=== PATIENT | male | born 1940 | race Caucasian/White ===

== ENCOUNTER 2020-02-03 09:15 | Emergency (ER) | payer MEDICARE, OTHER ==
[2020-02-03] MEDS ORDERED: Nitroglycerin 0.4 MG Tab.SL SL ONE (09:23)
--- NOTE | 2020-02-03 09:26 | EDM.PDOC ---
ED HPI GENERAL MEDICAL PROBLEM - General Stated Complaint: CHEST DISCOMFORT Time Seen by Provider: 02/03/20 09:15 Source of Information: Reports: Patient, Family History Limitations: Reports: No Limitations - History of Present Illness INITIAL COMMENTS - FREE TEXT/NARRATIVE: 79-year-old male with a remote history of PR 20 years ago who is been doing well, developed some chest pressure radiating in the back of his neck after breakfast about 1-1/2 hours ago. No shortness of breath, nausea or vomiting, diaphoresis. Onset: Sudden Duration: Hour(s): (1-1/2 hours ago) Location: Reports: Chest Associated Symptoms: Reports: Malaise, Other (Somewhat pale but not diaphoretic, also having some posterior neck pain). Denies: Shortness of Breath, Weakness Chest Pain Score (Numeric/FACES): 2 - Related Data Allergies Allergy/AdvReac Type Severity Reaction Status Date / Time dust mites Allergy Cannot Uncoded 02/03/20 09:35 Remember pollen Allergy Cannot Uncoded 02/03/20 09:35 Remember Home Meds: Home Meds Aspirin 325 mg PO DAILY 06/18/13 [History] Multivitamin with Minerals [Multiple Vitamin] 1 tab PO DAILY 06/18/13 [History] Nitroglycerin [Nitrostat] 0.4 mg SL ASDIRECTED PRN 06/18/13 [History] Simvastatin [Zocor] 20 mg PO DAILY 06/18/13 [History] metFORMIN [metFORMIN XR] 500 mg PO BID 06/18/13 [History] ramipriL [Altace] 2.5 mg PO DAILY 06/18/13 [History] Levothyroxine 137 mcg PO DAILY 06/19/13 [History] DULoxetine [Cymbalta] 20 mg PO DAILY 02/03/20 [History] Dulaglutide [Trulicity] 0.75 mg SQ ASDIRECTED 02/03/20 [History] Insulin Degludec [Tresiba] 56 unit SQ DAILY 02/03/20 [History] Metoprolol Succinate 50 mg PO BID 02/03/20 [History] Mirtazapine 15 mg PO BEDTIME 02/03/20 [History] ED ROS GENERAL - Review of Systems Review Of Systems: See Below Constitutional: Reports: Malaise. Denies: Fever, Chills HEENT: Denies: Throat Pain Respiratory: Denies: Shortness of Breath Cardiovascular: Reports: Chest Pain. Denies: Palpitations GI/Abdominal: Reports: Other. Denies: Abdominal Pain, Nausea (History of reflux), Vomiting : Reports: No Symptoms Musculoskeletal: Reports: Neck Pain Skin: Reports: Pallor Neurological: Reports: No Symptoms ED EXAM, GENERAL - Physical Exam Exam: See Below Exam Limited By: No Limitations General Appearance: Alert, No Apparent Distress Head: Atraumatic Neck: Supple, Non-Tender Respiratory/Chest: Lungs Clear Cardiovascular: Regular Rate, Rhythm GI/Abdominal: Soft, Non-Tender Neurological: Alert, Oriented Psychiatric: Normal Affect, Normal Mood Skin Exam: Pallor. No: Cyanosis, Diaphoretic Course - Vital Signs Last Recorded V/S: Last Vital Signs Temp 97.2 F 02/03/20 09:15 Pulse 72 02/03/20 09:15 Resp 16 02/03/20 09:15 BP 163/87 H 02/03/20 09:15 Pulse Ox 96 02/03/20 09:15 - Orders/Labs/Meds Orders: Active Orders 24 hr Category Date Time Status EKG 12 Lead [EK] Routine Ther 02/03/20 09:23 Ordered Labs: Laboratory Tests 02/03/20 02/03/20 Range/Units 09:33 09:33 WBC 5.0 (4.5-11.0) K/uL RBC 5.00 (4.30-5.90) M/uL Hgb 14.5 (12.0-15.0) g/dL Hct 44.3 (40.0-54.0) % MCV 89 (80-98) fL MCH 29 (27-31) pg MCHC 33 (32-36) % Plt Count 239 (150-400) K/uL Neut % (Auto) 61 (36-66) % Lymph % (Auto) 18 L (24-44) % [place] % (Auto) 14 H (2-6) % Eos % (Auto) 5 H (2-4) % Baso % (Auto) 1 (0-1) % Sodium 141 (140-148) mmol/L Potassium 4.4 (3.6-5.2) mmol/L Chloride 104 (100-108) mmol/L Carbon Dioxide 28 (21-32) mmol/L Anion Gap 8.7 (5.0-14.0) mmol/L BUN 16 (7-18) mg/dL Creatinine 0.8 (0.8-1.3) mg/dL Est Cr Clr Drug Dosing 73.65 mL/min Estimated GFR (MDRD) > 60 (>60) Glucose 201 H (74-106) mg/dL Calcium 8.7 (8.5-10.1) mg/dL Total Bilirubin 0.6 (0.2-1.0) mg/dL AST 19 (15-37) U/L ALT 29 (12-78) U/L Alkaline Phosphatase 89 (46-116) U/L Troponin I < 0.017 (0.000-0.056) ng/mL Total Protein 6.4 (6.4-8.2) g/dL Albumin 3.3 L (3.4-5.0) g/dL Globulin 3.1 (2.3-3.5) g/dL Albumin/Globulin Ratio 1.1 L (1.2-2.2) Meds: Medications Discontinued Medications Generic Name Dose Route Start Last Admin Trade Name Gamalielq PRN Reason Stop Dose Admin Heparin Sodium (Porcine) 4,000 units 02/03/20 09:30 02/03/20 09:47 Heparin Sodium IVPUSH 02/03/20 09:31 4,000 units ONETIME ONE Administration Heparin Sodium/Dextrose 25,000 units in 500 mls @ 20 mls/hr 02/03/20 09:30 02/03/20 09:48 Heparin 25,000 Units In D5w 500 Ml IV 1,000 units/hr TITRATE ROSIBEL 20 mls/hr Administration Protocol 1,000 UNITS/HR Nitroglycerin 0.4 mg 02/03/20 09:23 Nitrostat SL 02/03/20 09:24 ONETIME ONE Ticagrelor 180 mg 02/03/20 09:29 02/03/20 09:45 Brilinta PO 02/03/20 09:30 180 mg ONETIME ONE Administration - Re-Assessments/Exams Free Text/Narrative Re-Assessment/Exam: 02/03/20 09:40 EKG was done and showed inferior PR. An IV was started 02/03/20 09:59 Patient was given a full dose oral Brilinta, a 4000 unit heparin bolus and EKG was faxed to cardiology in [place]. Urgent transportation was arranged patient will go directly to [facility]. At discharge pressure was just "1 or 2", troponin was 0. Glucose was 201, otherwise labs were normal are reassuring, CBC was normal. Dr. Armstrong accepted transfer to [facility]. Departure - Departure Time of Disposition: 10:18 Disposition: DC/Tfer to Acute Hospital 02 Clinical Impression: STEMI (ST elevation myocardial infarction) Qualifiers: Involved coronary artery: unspecified coronary artery Qualified Code(s): I21.3 - ST elevation (STEMI) myocardial infarction of unspecified site - Discharge Information Referrals: Norman Lamb MD [Primary Care Provider] - Forms: ED Department Discharge Care Plan Goals: Patient was urgently transferred to [facility] and will be admitted directly to [facility] to evaluate a STEMI. Sepsis Event Note (ED) - Focused Exam Vital Signs: Vital Signs Temp Pulse Resp BP Pulse Ox 02/03/20 09:15 97.2 F 72 16 163/87 H 96 - My Orders Last 24 Hours: My Active Orders 02/03/20 09:23 EKG 12 Lead [EK] Routine - Assessment/Plan Last 24 Hours: My Active Orders 02/03/20 09:23 EKG 12 Lead [EK] Routine
[2020-02-03] MEDS ORDERED: Ticagrelor 90 MG Tab PO ONE (09:29)
[2020-02-03] MEDS ORDERED: Heparin Sodium 5,000 Units/ML Vial IVPUSH ONE (09:30)
[2020-02-03] MEDS ORDERED: Heparin Sodium/D5W 25,000 UNITS/500 ML BAG IV SCH (09:30)
== END 2020-02-03 10:10 ==
LOC: JP.ED 09:15
DX: I21.3 ST elevation (STEMI) myocardial infarction of unspecified site (principal); Z91.09 Other allergy status, other than to drugs and biological substances; Z91.048 Other nonmedicinal substance allergy status; Z79.82 Long term (current) use of aspirin; Z79.899 Other long term (current) drug therapy; Z79.4 Long term (current) use of insulin
CPT/HCPCS: 36415; 80053; 84484; 85025; 93005; 96365; 99285; A9270; J1644

== ENCOUNTER 2020-02-16 15:15 | Emergency (ER) | payer MEDICARE, OTHER ==
[2020-02-16] MEDS ORDERED: Sodium Chloride 0.9% 10 ML Syringe FLUSH PRN (15:50)
--- NOTE | 2020-02-16 16:40 | EDM.PDOC ---
ED HPI GENERAL MEDICAL PROBLEM - General Chief Complaint: General Stated Complaint: PASSING BLOOD Time Seen by Provider: 02/16/20 16:35 Source of Information: Reports: Patient, Family () - History of Present Illness INITIAL COMMENTS - FREE TEXT/NARRATIVE: Eduard is an 79 year old male whom present to ER with for evaluation of rectal bleeding over the last 3 weeks. 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 Eduard was evaluated in [place] ER 3-4 weeks ago and found to have acute myocardial infarction due to vascular lesion. Eduard was transferred to [place] and under went cardiac catheterization with stent placement. Eduard was discharged on Brilinta 90mg BID and ASA 81mg (previously on ASA 325mg). Eduard has known hist ory of hemorrhoids and radiation from previous prostate cancer treatment. 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 Eduard is feeling a bit lightheaded and off since recent hospitalization and concerned regarding amount of blood loss. - Related Data Allergies Allergy/AdvReac Type Severity Reaction Status Date / Time dust mites Allergy Cannot Uncoded 02/16/20 15:53 Remember pollen Allergy Cannot Uncoded 02/16/20 15:53 Remember Home Meds: Home Meds Aspirin 325 mg PO DAILY 06/18/13 [History] Multivitamin with Minerals [Multiple Vitamin] 1 tab PO DAILY 06/18/13 [History] Nitroglycerin [Nitrostat] 0.4 mg SL ASDIRECTED PRN 06/18/13 [History] Simvastatin [Zocor] 20 mg PO DAILY 06/18/13 [History] metFORMIN [metFORMIN XR] 500 mg PO BID 06/18/13 [History] ramipriL [Altace] 2.5 mg PO DAILY 06/18/13 [History] Levothyroxine 137 mcg PO DAILY 06/19/13 [History] DULoxetine [Cymbalta] 20 mg PO DAILY 02/03/20 [History] Dulaglutide [Trulicity] 0.75 mg SQ ASDIRECTED 02/03/20 [History] Insulin Degludec [Tresiba] 56 unit SQ DAILY 02/03/20 [History] Metoprolol Succinate 50 mg PO BID 02/03/20 [History] Mirtazapine 15 mg PO BEDTIME 02/03/20 [History] Hydrocortisone Acetate [Anusol-Hc] 25 mg RC TID 5 Days #12 supp.rect 02/16/20 [Rx] Hydrocortisone [Proctocream-Hc] 30 gm RC TID 10 Days #30 cream..g. 02/16/20 [Rx] Omeprazole 1 tab PO DAILY 02/16/20 [History] Sucralfate 1 gm PO ASDIRECTED PRN 5 Days #120 oral.susp 02/16/20 [Rx] Ticagrelor [Brilinta] 1 tab PO DAILY 02/16/20 [History] Past Medical History HEENT History: Reports: Hard of Hearing Cardiovascular History: Reports: CAD, High Cholesterol, Hypertension, [place] Respiratory History: Reports: None Gastrointestinal History: Reports: GERD Genitourinary History: Reports: Prostate Disorder Musculoskeletal History: Reports: Arthritis, Fracture Neurological History: Reports: None Endocrine/Metabolic History: Reports: Diabetes, Type II Oncologic (Cancer) History: Reports: Prostate, Thyroid - Infectious Disease History Infectious Disease History: Reports: Chicken Pox, Herpes, Measles, Mumps - Past Surgical History HEENT Surgical History: Reports: Tonsillectomy GI Surgical History: Reports: None Male Surgical History: Reports: Prostatectomy Other Male Surgeries/Procedures: 12 years ago Endocrine Surgical History: Reports: Thyroidectomy Musculoskeletal Surgical History: Reports: Shoulder Surgery Social & Family History - Tobacco Use Smoking Status *Q: Never Smoker - Caffeine Use Caffeine Use: Reports: Coffee ED ROS GENERAL - Review of Systems Review Of Systems: Comprehensive ROS is negative, except as noted in HPI. ED EXAM, GENERAL - Physical Exam Exam: See Below Exam Limited By: No Limitations General Appearance: Alert, No Apparent Distress Eye Exam: Bilateral Eye: Normal Inspection Ears: Hearing Grossly Normal Nose: Normal Inspection Throat/Mouth: Normal Inspection, Normal Voice, No Airway Compromise Neck: Normal Inspection, Supple, Non-Tender Respiratory/Chest: No Respiratory Distress, Normal Breath Sounds, Chest Non- Tender Cardiovascular: Normal Peripheral Pulses, Regular Rate, Rhythm GI/Abdominal: Normal Bowel Sounds, Soft, Non-Tender (Male) Exam: Deferred Rectal (Males) Exam: Deferred (offered but declinecd) Extremities: Normal Inspection. No: Pedal Edema Neurological: Alert, CN II-XII Intact, Normal Cognition Psychiatric: Normal Affect, Normal Mood Skin Exam: Warm, Dry Lymphatic: No Adenopathy Course - Vital Signs Last Recorded V/S: Last Vital Signs Temp 36.5 C 02/16/20 16:37 Pulse 85 02/16/20 16:37 Resp 16 02/16/20 16:37 BP 141/84 H 02/16/20 16:37 Pulse Ox 98 02/16/20 16:37 - Orders/Labs/Meds Orders: Active Orders 24 hr Category Date Time Status Peripheral IV Insertion Adult [OM.PC] Urgent Oth 02/16/20 15:50 Ordered Labs: Laboratory Tests 02/16/20 02/16/20 Range/Units 16:02 16:02 WBC 5.8 (4.5-11.0) K/uL RBC 4.51 (4.30-5.90) M/uL Hgb 13.0 (12.0-15.0) g/dL Hct 39.9 L (40.0-54.0) % MCV 89 (80-98) fL MCH 29 (27-31) pg MCHC 33 (32-36) % Plt Count 318 (150-400) K/uL Neut % (Auto) 59 (36-66) % Lymph % (Auto) 20 L (24-44) % [place] % (Auto) 15 H (2-6) % Eos % (Auto) 5 H (2-4) % Baso % (Auto) 1 (0-1) % Sodium 144 (140-148) mmol/L Potassium 4.3 (3.6-5.2) mmol/L Chloride 108 (100-108) mmol/L Carbon Dioxide 26 (21-32) mmol/L Anion Gap 10.1 (5.0-14.0) mmol/L BUN 17 (7-18) mg/dL Creatinine 1.0 (0.8-1.3) mg/dL Est Cr Clr Drug Dosing 58.92 mL/min Estimated GFR (MDRD) > 60 (>60) Glucose 130 H (74-106) mg/dL Calcium 8.5 (8.5-10.1) mg/dL Total Bilirubin 0.4 (0.2-1.0) mg/dL Direct Bilirubin 0.15 (0.0-0.2) mg/dL Indirect Bilirubin 0.25 AST 17 (15-37) U/L ALT 30 (12-78) U/L Alkaline Phosphatase 83 (46-116) U/L Total Protein 6.4 (6.4-8.2) g/dL Albumin 3.2 L (3.4-5.0) g/dL Globulin 3.2 (2.3-3.5) g/dL Albumin/Globulin Ratio 1.0 L (1.2-2.2) Meds: Medications Discontinued Medications Generic Name Dose Route Start Last Admin Trade Name Freq PRN Reason Stop Dose Admin Sodium Chloride 10 ml 02/16/20 15:50 02/16/20 17:08 Saline Flush FLUSH 10 ml ASDIRECTED PRN Administration Keep Vein Open Departure - Departure Time of Disposition: 17:06 Disposition: Home, Self-Care 01 Clinical Impression: Rectal bleed - Discharge Information Prescriptions: Hydrocortisone Acetate [Anusol-Hc] 25 mg RC TID 5 Days #12 supp.rect Hydrocortisone [Proctocream-Hc] 30 gm RC TID 10 Days #30 cream..g. Sucralfate 1 gm PO ASDIRECTED PRN 5 Days #120 oral.susp PRN Reason: GI Instructions: Rectal Bleeding, [id number] Referrals: Norman Lamb MD [Primary Care Provider] - Forms: ED Department Discharge Additional Instructions: 1. Go to General Surgery appointment this coming week as planned. 2. 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 3. 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 4. Oral medication to stop diarrhea may not be beneficial and may cause constipation and harm. 5. Recommendations reviewed to treat localized rectal bleeding with Anusol HC suppositories AND Proctozone(cream) vs Proctofoam vs Sucralfate solution per previous instructions. 6. Call PCP in am to discuss risk benefit of medications and further interventions, possible colonoscopy or [facility]-rectal consult for possible banding if bleeding due to hemorrhoids. Sepsis Event Note (ED) - Focused Exam Vital Signs: Vital Signs Temp Pulse Resp BP Pulse Ox 02/16/20 16:37 36.5 C 85 16 141/84 H 98 02/16/20 16:12 36.5 C 85 16 141/84 H 98 - My Orders Last 24 Hours: My Active Orders 02/16/20 15:50 Peripheral IV Insertion Adult [OM.PC] Urgent - Assessment/Plan Last 24 Hours: My Active Orders 02/16/20 15:50 Peripheral IV Insertion Adult [OM.PC] Urgent
== END 2020-02-16 17:12 | disposition home or self-care (01) ==
LOC: JP.ED 15:15
DX: K62.5 Hemorrhage of anus and rectum (principal); I25.10 Atherosclerotic heart disease of native coronary artery without angina pectoris; E78.00 Pure hypercholesterolemia, unspecified; I10 Essential (primary) hypertension; I25.2 Old myocardial infarction; K21.9 Gastro-esophageal reflux disease without esophagitis; M19.90 Unspecified osteoarthritis, unspecified site; E11.9 Type 2 diabetes mellitus without complications; Z79.899 Other long term (current) drug therapy; Z79.4 Long term (current) use of insulin; Z91.048 Other nonmedicinal substance allergy status
CPT/HCPCS: 36415; 80048; 80076; 85025; 99283

== ENCOUNTER 2021-03-02 12:39 | Emergency (ER) | payer MEDICARE, OTHER ==
--- NOTE | 2021-03-02 13:51 | EDM.PDOC ---
ED HPI GENERAL MEDICAL PROBLEM - General Chief Complaint: Abdominal Pain Stated Complaint: LOWER ABD CRAMPS Time Seen by Provider: 03/02/21 13:35 Source of Information: Reports: Patient History Limitations: Reports: No Limitations - History of Present Illness INITIAL COMMENTS - FREE TEXT/NARRATIVE: 80-year-old with history of prostate cancer, he had lower abdominal surgery 12 y ears ago and has received radiation treatment to the lower abdomen. He has developed lower abdominal cramping and pain over the past 4 days with intermittent vomiting. No fevers or chills, no shortness of breath. It did start with some diarrhea 4 days ago but that has improved. No fevers or chills. He just finished an extended course of clindamycin and ciprofloxacin just under 3 weeks ago for an infected toe. He had no side effects or diarrhea from the antibiotics and his diarrhea just started 4 days ago. Stools have been dark but he has been taking Pepto-Bismol. He has chronic irritable bowel and diarrhea issues. He has had no past history that he knows of of anemia in fact he gave blood in the past year. Onset: Sudden (Started fairly suddenly 4 days ago) Location: Reports: Abdomen (Lower abdomen, somewhat worse on the right side with some mild radiation to the back and testicles) Quality: Reports: Sharp, Stabbing, Other (Cramping) Severity: Moderate Improves with: Reports: Other (Seems to improve after emesis) Associated Symptoms: Reports: Malaise, Nausea/Vomiting, Other (Started with diarrhea but that is slowed down). Denies: Confusion, Chest Pain, Fever/Chills, Headaches, Shortness of Breath Lower Abdomen Pain Score (Numeric/FACES): 5 - Related Data Allergies Allergy/AdvReac Type Severity Reaction Status Date / Time dust mites Allergy Cannot Uncoded 03/02/21 13:29 Remember pollen Allergy Cannot Uncoded 03/02/21 13:29 Remember Home Meds: Home Meds Multivitamin with Minerals [Multiple Vitamin] 1 tab PO DAILY 06/18/13 [History] Simvastatin [Zocor] 20 mg PO DAILY 06/18/13 [History] metFORMIN [metFORMIN XR] 1,000 mg PO BID 06/18/13 [History] ramipriL [Altace] 2.5 mg PO DAILY 06/18/13 [History] Levothyroxine 137 mcg PO DAILY 06/19/13 [History] DULoxetine [Cymbalta] 20 mg PO DAILY 02/03/20 [History] Dulaglutide [Trulicity] 0.75 mg SQ ASDIRECTED 02/03/20 [History] Metoprolol Succinate 50 mg PO DAILY 02/03/20 [History] Mirtazapine 15 mg PO BEDTIME 02/03/20 [History] Omeprazole 1 tab PO DAILY 02/16/20 [History] Aspirin [Halfprin] 81 mg PO DAILY 03/02/21 [History] Insulin Degludec [Tresiba] 52 unit SUBCUT DAILY 03/02/21 [History] Ciprofloxacin [Ciprofloxacin HCl] 250 mg PO BID 5 Days #10 tab 03/03/21 [Rx] metroNIDAZOLE [Metronidazole] 250 mg PO TID 5 Days #15 tablet 03/03/21 [Rx] Past Medical History HEENT History: Reports: Hard of Hearing Cardiovascular History: Reports: CAD, High Cholesterol, Hypertension, [place] Respiratory History: Reports: None Gastrointestinal History: Reports: GERD Genitourinary History: Reports: Prostate Disorder Musculoskeletal History: Reports: Arthritis, Fracture Neurological History: Reports: None Endocrine/Metabolic History: Reports: Diabetes, Type II Oncologic (Cancer) History: Reports: Prostate, Thyroid - Infectious Disease History Infectious Disease History: Reports: Chicken Pox, Herpes, Measles, Mumps - Past Surgical History HEENT Surgical History: Reports: Tonsillectomy Male Surgical History: Reports: Prostatectomy Other Male Surgeries/Procedures: 12 years ago Endocrine Surgical History: Reports: Thyroidectomy Musculoskeletal Surgical History: Reports: Shoulder Surgery Social & Family History - Tobacco Use Tobacco Use Status *Q: Never Tobacco User - Caffeine Use Caffeine Use: Reports: Soda - Recreational Drug Use Recreational Drug Use: No ED ROS GENERAL - Review of Systems Review Of Systems: See Below Constitutional: Denies: Fever, Chills HEENT: Reports: No Symptoms Respiratory: Denies: Shortness of Breath Cardiovascular: Reports: No Symptoms GI/Abdominal: Reports: Abdominal Pain (Lower abdomen, especially the right side), Diarrhea, Nausea, Vomiting Skin: Denies: Bruising, Erythema Neurological: Reports: No Symptoms Psychiatric: Reports: No Symptoms Free Text/Narrative/Comment: Fairly well controlled insulin-dependent diabetes ED EXAM, GI/ABD - Physical Exam Exam: See Below Exam Limited By: No Limitations General Appearance: Alert, No Apparent Distress, Other (Patient was comfortable initially but gets increased abdominal cramping where he gets extremely uncomfortable) Eyes: Bilateral: Pale Conjunctiva Head: Atraumatic Neck: Supple, Non-Tender Respiratory/Chest: Lungs Clear Cardiovascular: Regular Rate, Rhythm. No: Tachycardia GI/Abdominal Exam: Soft, Tender (Reacts to some tenderness to palpation in the lower abdomen especially the right side but no guarding, no significant rebound) Rectal (Males) Exam: Normal Rectal Tone, Black Stool, Heme + Stool. No: Fecal Impaction, Mass Extremities: No: Pedal Edema, Joint Swelling Neurological: Alert, Oriented, No Motor/Sensory Deficits Psychiatric: Normal Affect, Normal Mood, Other (Patient has a fairly normal affect and mood unless his cramps ramp-up then he becomes somewhat agitated until he vomits, and he is improved) Skin Exam: Warm, Dry Course - Vital Signs Last Recorded V/S: Last Vital Signs Temp 99.9 F 03/03/21 08:14 Pulse 81 03/03/21 08:14 Resp 18 03/03/21 08:14 BP 114/54 L 03/03/21 08:14 Pulse Ox 93 L 03/03/21 08:14 - Orders/Labs/Meds Orders: Active Orders 24 hr Category Date Time Status CULTURE STOOL + SHIGATOX [RM] Stat Lab 03/02/21 16:14 Ordered CULTURE URINE [RM] Stat Lab 03/02/21 16:06 Results Clostridium [CLOS DIFFICILE PCR W/REFLEX] [RM] Stat Lab 03/02/21 16:14 Ordered PATIENT RETYPE [BBK] Stat Lab 03/02/21 16:09 Results RED BLOOD CELLS LP [BBK] Stat Lab 03/02/21 16:09 Results TYPE AND SCREEN [BBK] Stat Lab 03/02/21 16:09 Results WBC, STOOL [OP] Stat Lab 03/02/21 16:14 Ordered Transfuse Red Blood Cells [COMM] Stat Oth 03/02/21 17:38 Ordered Labs: Laboratory Tests 03/02/21 03/02/21 03/02/21 Range/Units 13:55 13:55 14:11 WBC 10.0 (4.5-11.0) K/uL RBC 4.47 (4.30-5.90) M/uL Hgb 7.4 L D (12.0-15.0) g/dL Hct 28.4 L (40.0-54.0) % MCV 64 L (80-98) fL MCH 17 L (27-31) pg MCHC 26 L (32-36) % Plt Count 334 (150-400) K/uL Neut % (Auto) 75.2 H (36-66) % Lymph % (Auto) 10.7 L (24-44) % [place] % (Auto) 12.6 H (2-6) % Eos % (Auto) 1.1 L (2-4) % Baso % (Auto) 0.4 (0-1) % Sodium 139 L (140-148) mmol/L Potassium 4.2 (3.6-5.2) mmol/L Chloride 102 (100-108) mmol/L Carbon Dioxide 26 (21-32) mmol/L Anion Gap 15.2 H (5.0-14.0) mmol/L BUN 21 H (7-18) mg/dL Creatinine 0.8 (0.8-1.3) mg/dL Est Cr Clr Drug Dosing 72.42 mL/min Estimated GFR (MDRD) > 60 (>60) Glucose 157 H (74-106) mg/dL POC Glucose (74-106) mg/dL Lactic Acid (0.4-2.0) mmol/L Calcium 8.7 (8.5-10.1) mg/dL Total Bilirubin 0.5 (0.2-1.0) mg/dL AST 13 L (15-37) U/L ALT 17 (12-78) U/L Alkaline Phosphatase 79 (46-116) U/L Total Protein 6.3 L (6.4-8.2) g/dL Albumin 3.6 (3.4-5.0) g/dL Globulin 2.7 (2.3-3.5) g/dL Albumin/Globulin Ratio 1.3 (1.2-2.2) Urine Color Yellow (YELLOW) Urine Appearance Slightly cloudy A (CLEAR) Urine pH 5.5 (5.0-8.0) Ur Specific [place] > 1.030 (1.008-1.030) Urine Protein Negative (NEGATIVE) mg/dL Urine Glucose (UA) Normal (NEGATIVE) mg/dL Urine Ketones Negative (NEGATIVE) mg/dL Urine Occult Blood Small (NEGATIVE) Urine Nitrite Positive H (NEGATIVE) Urine Bilirubin Negative (NEGATIVE) Urine Urobilinogen 0.2 (0.2-1.0) EU/dL Ur Leukocyte Esterase Negative (NEGATIVE) Urine RBC 0-5 (0-5) Urine WBC 10-20 H (0-5) Ur Epithelial Cells Few Amorphous Sediment Not seen Urine Bacteria Many Urine Mucus Moderate SARS-CoV-2 RNA (ROSALBA) (NEGATIVE) Blood Type Gel Antibody Screen Crossmatch 03/02/21 03/02/21 03/02/21 Range/Units 15:47 16:09 18:24 WBC (4.5-11.0) K/uL RBC (4.30-5.90) M/uL Hgb (12.0-15.0) g/dL Hct (40.0-54.0) % MCV (80-98) fL MCH (27-31) pg MCHC (32-36) % Plt Count (150-400) K/uL Neut % (Auto) (36-66) % Lymph % (Auto) (24-44) % [place] % (Auto) (2-6) % Eos % (Auto) (2-4) % Baso % (Auto) (0-1) % Sodium (140-148) mmol/L Potassium (3.6-5.2) mmol/L Chloride (100-108) mmol/L Carbon Dioxide (21-32) mmol/L Anion Gap (5.0-14.0) mmol/L BUN (7-18) mg/dL Creatinine (0.8-1.3) mg/dL Est Cr Clr Drug Dosing mL/min Estimated GFR (MDRD) (>60) Glucose (74-106) mg/dL POC Glucose (74-106) mg/dL Lactic Acid 1.5 (0.4-2.0) mmol/L Calcium (8.5-10.1) mg/dL Total Bilirubin (0.2-1.0) mg/dL AST (15-37) U/L ALT (12-78) U/L Alkaline Phosphatase (46-116) U/L Total Protein (6.4-8.2) g/dL Albumin (3.4-5.0) g/dL Globulin (2.3-3.5) g/dL Albumin/Globulin Ratio (1.2-2.2) Urine Color (YELLOW) Urine Appearance (CLEAR) Urine pH (5.0-8.0) Ur Specific [place] (1.008-1.030) Urine Protein (NEGATIVE) mg/dL Urine Glucose (UA) (NEGATIVE) mg/dL Urine Ketones (NEGATIVE) mg/dL Urine Occult Blood (NEGATIVE) Urine Nitrite (NEGATIVE) Urine Bilirubin (NEGATIVE) Urine Urobilinogen (0.2-1.0) EU/dL Ur Leukocyte Esterase (NEGATIVE) Urine RBC (0-5) Urine WBC (0-5) Ur Epithelial Cells Amorphous Sediment Urine Bacteria Urine Mucus SARS-CoV-2 RNA (ROSALBA) Negative (NEGATIVE) Blood Type A POSITIVE Gel Antibody Screen Negative Crossmatch See Detail 03/02/21 03/03/21 03/03/21 Range/Units 19:27 06:05 08:15 WBC 11.2 H (4.5-11.0) K/uL RBC 4.39 (4.30-5.90) M/uL Hgb 7.8 L (12.0-15.0) g/dL Hct 29.0 L (40.0-54.0) % MCV 66 L (80-98) fL MCH 18 L (27-31) pg MCHC 27 L (32-36) % Plt Count 299 (150-400) K/uL Neut % (Auto) (36-66) % Lymph % (Auto) (24-44) % [place] % (Auto) (2-6) % Eos % (Auto) (2-4) % Baso % (Auto) (0-1) % Sodium (140-148) mmol/L Potassium (3.6-5.2) mmol/L Chloride (100-108) mmol/L Carbon Dioxide (21-32) mmol/L Anion Gap (5.0-14.0) mmol/L BUN (7-18) mg/dL Creatinine (0.8-1.3) mg/dL Est Cr Clr Drug Dosing mL/min Estimated GFR (MDRD) (>60) Glucose (74-106) mg/dL POC Glucose 145 H (74-106) mg/dL Lactic Acid 1.1 (0.4-2.0) mmol/L Calcium (8.5-10.1) mg/dL Total Bilirubin (0.2-1.0) mg/dL AST (15-37) U/L ALT (12-78) U/L Alkaline Phosphatase (46-116) U/L Total Protein (6.4-8.2) g/dL Albumin (3.4-5.0) g/dL Globulin (2.3-3.5) g/dL Albumin/Globulin Ratio (1.2-2.2) Urine Color (YELLOW) Urine Appearance (CLEAR) Urine pH (5.0-8.0) Ur Specific [place] (1.008-1.030) Urine Protein (NEGATIVE) mg/dL Urine Glucose (UA) (NEGATIVE) mg/dL Urine Ketones (NEGATIVE) mg/dL Urine Occult Blood (NEGATIVE) Urine Nitrite (NEGATIVE) Urine Bilirubin (NEGATIVE) Urine Urobilinogen (0.2-1.0) EU/dL Ur Leukocyte Esterase (NEGATIVE) Urine RBC (0-5) Urine WBC (0-5) Ur Epithelial Cells Amorphous Sediment Urine Bacteria Urine Mucus SARS-CoV-2 RNA ([place]AL[place]) (NEGATIVE) Blood Type Gel Antibody Screen Crossmatch Meds: Medications Discontinued Medications Generic Name Dose Route Start Last Admin Trade Name Alida PRN Reason Stop Dose Admin Fentanyl 25 mcg 03/02/21 15:45 03/02/21 15:58 Fentanyl 100 Mcg/2 Ml Sdv IVPUSH 03/02/21 15:46 25 mcg ONETIME ONE Administration Fentanyl 50 mcg 03/02/21 16:35 03/02/21 16:50 Fentanyl 100 Mcg/2 Ml Sdv IVPUSH 03/02/21 16:36 50 mcg ONETIME ONE Administration Hydromorphone HCl 0.5 mg 03/02/21 17:37 03/02/21 17:43 Hydromorphone 0.5 Mg/0.5 Ml Syringe IVPUSH 03/02/21 17:38 0.5 mg ONETIME ONE Administration Sodium Chloride 1,000 mls @ 500 mls/hr 03/02/21 14:30 03/02/21 14:59 Normal Saline IV 500 mls/hr ASDIRECTED ROSIBEL Administration Ciprofloxacin/Dextrose 400 mg/ 200 mls @ 200 mls/hr 03/02/21 16:11 03/02/21 16:27 Premix IV 03/02/21 17:10 200 mls/hr ONETIME ONE Administration Metronidazole 500 mg/ Premix 100 mls @ 100 mls/hr 03/02/21 16:11 03/02/21 17:39 IV 03/02/21 17:10 100 mls/hr ONETIME ONE Administration Ondansetron HCl 4 mg 03/02/21 14:28 03/02/21 14:58 Ondansetron 4 Mg/2 Ml Sdv IVPUSH 03/02/21 14:29 4 mg ONETIME ONE Administration Prochlorperazine Edisylate 5 mg 03/02/21 16:00 03/02/21 16:10 Prochlorperazine 10 Mg/2 Ml Sdv IVPUSH 03/02/21 16:01 5 mg ONETIME ONE Administration - Re-Assessments/Exams Free Text/Narrative Re-Assessment/Exam: 03/02/21 16:27 CBC, CMP were ordered and due to the intensity of the cramping and that probable GI bleed, CT of the abdomen and pelvis will be needed. Hemoglobin returned 7.4 which is significantly low for this patient. He has no history of blood loss anemia, in fact donated blood in the past year. White count is normal, electrolytes are reassuring. Anion gap is only minimally elevated. While awaiting lab results he had 2 more episodes of intense lower abdominal pain which needed some IV fentanyl for pain control, he also had recurring intense nausea and vomiting. He was fairly comfortable in between the episodes of emesis. CT of the abdomen pelvis was done which did not show any acute findings that would explain his lower abdominal cramping. We will attempt to get a stool sample for C. difficile and culture, he was originally given Zofran, and an additional dose of Compazine was needed later to control his nausea. 2 units of packed RBCs were typed and crossed after his hemoglobin returned 7.4. After consultation with the hospitalist service and the normal CT scan, colitis or even bowel infarction was considered and IV Cipro and metronidazole was started. Lactic acid is still pending. 03/02/21 16:30 Patient at this time is much more comfortable. 03/03/21 08:14 Patient rested comfortably all night long, had no further dark stools, nausea or vomiting. Repeat hemoglobin at 6 AM was 7.8. Lactic acid was drawn and if this is still within normal limits, consideration of treating with outpatient antibiotics with a presumptive diagnosis of colitis may be possible, this plan is agreeable with the patient. 03/03/21 09:31 Patient ate a full breakfast without nausea or vomiting, still no pain or diarrhea. Repeat lactic acid was 1.1. Patient will be discharged and continued on metronidazole 250 mg 3 times a day, and ciprofloxacin 250 mg twice a day for 5 additional days. Discharged with a diagnosis of colitis, blood loss anemia and GI bleed. He has an appointment with his primary provider in 1 week, and hemoglobin can be rechecked at that time and he can discuss any further evaluation needed such as a colonoscopy. Departure - Departure Time of Disposition: 09:42 Disposition: Home, Self-Care 01 Clinical Impression: Colitis, Blood loss anemia GI bleed Qualifiers: GI bleed type/associated pathology: melena Qualified Code(s): K92.1 - Melena - Discharge Information Prescriptions: Ciprofloxacin [Ciprofloxacin HCl] 250 mg PO BID 5 Days #10 tab metroNIDAZOLE [Metronidazole] 250 mg PO TID 5 Days #15 tablet Instructions: Colitis Referrals: Norman Lamb MD [Primary Care Provider] - Forms: ED Department Discharge Care Plan Goals: Take the antibiotics for the next 5 days as directed, continue your regular medications. Increase diet and activity as tolerated and return anytime if symptoms recur or you develop other concerns. Recheck with Dr. Lamb as scheduled and consider recheck hemoglobin at that time and discuss any further evaluation that may be necessary. Sepsis Event Note (ED) - Evaluation Sepsis Screening Result: No Definite Risk - Focused Exam Vital Signs: Vital Signs Temp Pulse Resp BP Pulse Ox 03/03/21 08:14 99.9 F 81 18 114/54 L 93 L - My Orders Last 24 Hours: My Active Orders 03/02/21 16:06 CULTURE URINE [RM] Stat 03/02/21 16:09 PATIENT RETYPE [BBK] Stat RED BLOOD CELLS LP [BBK] Stat TYPE AND SCREEN [BBK] Stat 03/02/21 16:14 CULTURE STOOL + SHIGATOX [RM] Stat Clostridium [CLOS DIFFICILE PCR W/REFLEX] [RM] Stat WBC, STOOL [OP] Stat 03/02/21 17:38 Transfuse Red Blood Cells [COMM] Stat - Assessment/Plan Last 24 Hours: My Active Orders 03/02/21 16:06 CULTURE URINE [RM] Stat 03/02/21 16:09 PATIENT RETYPE [BBK] Stat RED BLOOD CELLS LP [BBK] Stat TYPE AND SCREEN [BBK] Stat 03/02/21 16:14 CULTURE STOOL + SHIGATOX [RM] Stat Clostridium [CLOS DIFFICILE PCR W/REFLEX] [RM] Stat WBC, STOOL [OP] Stat 03/02/21 17:38 Transfuse Red Blood Cells [COMM] Stat
[2021-03-02] MEDS ORDERED: Ondansetron 4 MG/2 ML SDV IVPUSH ONE (14:28)
[2021-03-02] MEDS ORDERED: Sodium Chloride 0.9% 1,000 ML IV SCH (14:30)
--- NOTE | 2021-03-02 15:07 | CT ---
Abdomen Pelvis wo Cont CLINICAL HISTORY: Lower abdominal pain COMPARISON: None. TECHNIQUE: Axial tomographic images are obtained from the dome of the diaphragm to the pubic symphysis without IV contrast enhancement. No oral contrast was used. The dosage reduction and iterative reconstruction techniques employed. FINDINGS: The lung bases are free of mass or infiltrate. There is a granuloma in the lingula. The liver shows no mass or inflammatory change. The gallbladder has a normal appearance. The spleen contains multiple granulomata. The pancreas shows no mass or inflammatory change. The adrenal glands appear normal bilaterally. There is a 2.1 x 2.4 cm low-attenuation focus off the lower pole left kidney likely a small cyst. There are some punctate nonobstructing left renal calculi. Ureters have a normal course and caliber. The aorta shows some atheromatous plaque without aneurysm. Iliac arteries are mildly ectatic.. There is no suspicious retroperitoneal adenopathy. The small intestinal configuration is nonacute. Appendix has a normal contour. There is some sigmoid diverticulosis without evidence of diverticulitis. IMPRESSION: Punctate nonobstructing left renal calculi Left: Diverticulosis without evidence of diverticulitis. Previous granulomatous exposure No mass, adenopathy or laboratory change
[2021-03-02] MEDS ORDERED: fentaNYL 100 MCG/2 ML SDV IVPUSH ONE ×2 (15:45→16:35)
[2021-03-02] MEDS ORDERED: Prochlorperazine 10 MG/2 ML SDV IVPUSH ONE (16:00)
[2021-03-02] MEDS ORDERED: Ciprofloxacin in D5W 400 MG in Premix Bag 1 BAG IV ONE ×2 (16:11)
[2021-03-02] MEDS ORDERED: metroNIDAZOLE/Normal Saline 500 MG in Premix Bag 1 BAG IV ONE (16:11)
[2021-03-02] MEDS ORDERED: HYDROmorphone 0.5 MG/0.5 ML Syringe IVPUSH ONE (17:37)
== END 2021-03-03 09:49 | disposition home or self-care (01) ==
LOC: JP.ED 12:39
DX: K52.9 Noninfective gastroenteritis and colitis, unspecified (principal); K92.1 Melena; D50.0 Iron deficiency anemia secondary to blood loss (chronic); E78.00 Pure hypercholesterolemia, unspecified; I10 Essential (primary) hypertension; I25.10 Atherosclerotic heart disease of native coronary artery without angina pectoris; K21.9 Gastro-esophageal reflux disease without esophagitis; E11.9 Type 2 diabetes mellitus without complications; Z91.09 Other allergy status, other than to drugs and biological substances; Z79.82 Long term (current) use of aspirin; Z79.4 Long term (current) use of insulin; Z79.899 Other long term (current) drug therapy; Z20.822 Contact with and (suspected) exposure to COVID-19
CPT/HCPCS: 36415; 36430; 74176; 80053; 81001; 82272; 82947; 83605; 85025; 85027; 86850; 86900; 86901; 86920; 86922; 87086; 87088; 87186; 96365; 96367; 96375; 96376; 99284; J0744; J0780; J1170; J2405; J3010; J3490; J7030; P9016; U0002

== ENCOUNTER 2021-03-03 17:15 | Emergency (ER) | payer MEDICARE, OTHER ==
[2021-03-03] MEDS ORDERED: HYDROmorphone 0.5 MG/0.5 ML Syringe IVPUSH PRN (19:02)
[2021-03-03] MEDS ORDERED: Ondansetron 4 MG/2 ML SDV IVPUSH PRN (19:03)
[2021-03-03] MEDS ORDERED: Pantoprazole 40 MG Vial IVPUSH ONE (19:04)
[2021-03-03] MEDS ORDERED: Sodium Chloride 0.9% 10 ML Syringe FLUSH PRN ×2 (19:04)
--- NOTE | 2021-03-03 19:06 | EDM.PDOC ---
ED HPI GENERAL MEDICAL PROBLEM - General Chief Complaint: Abdominal Pain Stated Complaint: ABDOMINAL PAIN Time Seen by Provider: 03/03/21 18:30 Source of Information: Reports: Patient, Family (spouse), Other (ER physician that cared for patient previous night) History Limitations: Reports: No Limitations - History of Present Illness INITIAL COMMENTS - FREE TEXT/NARRATIVE: Patient presents to the emergency room today secondary to recurrence of lower abdominal pain he says pain starts on the left side and then goes across the lower abdominal region it is cramping-like in nature. Patient was seen in the emergency room last night he was released this morning around 01/15/1930. Patient was treated and released with blood transfusion as well as IV antibiotics for ischemic colitis he did eat breakfast this morning prior to being discharged and had no further problems or concerns. Patient states he ate lunch and was doing fine until this evening when he started having some abdominal cramping he did have some nausea while waiting in the waiting room he denies any bloody diarrhea today he says he has had 2 bowel movements that are dark in nature but not tarry and no blood is noted he denies any lightheaded or dizziness he says he is burping but he has not passed any gas he rates pain is an 8-10 out of 10 constant in nature as said cramping PMHCAD/stent, ND, diabetes type 2 (insulin therapy), HLP, HTN, surgical hypothyroidism status post resection of thyroid cancer he received 1 dose of radioactive iodine, history of TURP prostatectomy secondary to prostate cancer had recurrence with radiation treatment x37 doses Medsreviewed in EMR No known drug allergies tob--former EtOH--rare Drugs--denies Patient has not had COVID, he states he has had COVID immunization ([employer], received 3rd dose/booster Feb 2021) Left Abdomen Pain Score (Numeric/FACES): 10 - Related Data Allergies Allergy/AdvReac Type Severity Reaction Status Date / Time dust mites Allergy Cannot Uncoded 03/03/21 17:32 Remember pollen Allergy Cannot Uncoded 03/03/21 17:32 Remember Home Meds: Home Meds Multivitamin with Minerals [Multiple Vitamin] 1 tab PO DAILY 06/18/13 [History] Simvastatin [Zocor] 20 mg PO DAILY 06/18/13 [History] metFORMIN [metFORMIN XR] 1,000 mg PO BID 06/18/13 [History] ramipriL [Altace] 2.5 mg PO DAILY 06/18/13 [History] Levothyroxine 137 mcg PO DAILY 06/19/13 [History] DULoxetine [Cymbalta] 20 mg PO DAILY 02/03/20 [History] Dulaglutide [Trulicity] 0.75 mg SQ ASDIRECTED 02/03/20 [History] Metoprolol Succinate 50 mg PO DAILY 02/03/20 [History] Mirtazapine 15 mg PO BEDTIME 02/03/20 [History] Omeprazole 1 tab PO DAILY 02/16/20 [History] Aspirin [Halfprin] 81 mg PO DAILY 03/02/21 [History] Insulin Degludec [Tresiba] 52 unit SUBCUT DAILY 03/02/21 [History] Ciprofloxacin [Ciprofloxacin HCl] 250 mg PO BID 5 Days #10 tab 03/03/21 [Rx] metroNIDAZOLE [Metronidazole] 250 mg PO TID 5 Days #15 tablet 03/03/21 [Rx] Past Medical History HEENT History: Reports: Hard of Hearing Cardiovascular History: Reports: CAD, High Cholesterol, Hypertension, ND Respiratory History: Reports: None Gastrointestinal History: Reports: GERD Genitourinary History: Reports: Prostate Disorder Musculoskeletal History: Reports: Arthritis, Fracture Neurological History: Reports: None Endocrine/Metabolic History: Reports: Diabetes, Type II Oncologic (Cancer) History: Reports: Prostate, Thyroid - Infectious Disease History Infectious Disease History: Reports: Chicken Pox, Herpes, Measles, Mumps - Past Surgical History HEENT Surgical History: Reports: Tonsillectomy GI Surgical History: Reports: None Male Surgical History: Reports: Prostatectomy Other Male Surgeries/Procedures: 12 years ago Endocrine Surgical History: Reports: Thyroidectomy Musculoskeletal Surgical History: Reports: Shoulder Surgery Social & Family History - Tobacco Use Tobacco Use Status *Q: Never Tobacco User - Caffeine Use Caffeine Use: Reports: Soda - Recreational Drug Use Recreational Drug Use: No ED ROS GENERAL - Review of Systems Review Of Systems: Comprehensive ROS is negative, except as noted in HPI. Constitutional: Reports: No Symptoms HEENT: Reports: No Symptoms Respiratory: Reports: No Symptoms Cardiovascular: Reports: No Symptoms Endocrine: Reports: No Symptoms GI/Abdominal: Reports: Abdominal Pain, Black Stool, Nausea. Denies: Bloody Stool, Constipation, Diarrhea, Decreased Appetite, Flatus, Vomiting : Reports: No Symptoms Musculoskeletal: Reports: No Symptoms Skin: Reports: No Symptoms Neurological: Reports: No Symptoms Psychiatric: Reports: No Symptoms Hematologic/Lymphatic: Reports: No Symptoms Immunologic: Reports: No Symptoms ED EXAM, GI/ABD - Physical Exam Exam: See Below Exam Limited By: No Limitations General Appearance: Alert, WD/WN, Moderate Distress (secondary to abdominal pain/cramping) Eyes: Bilateral: Normal Appearance, EOMI Ears: Normal External Exam, Hearing Grossly Normal (somewhat decreased but able to hear/understand my questions) Nose: Normal Inspection Throat/Mouth: Normal Inspection, Normal Lips, Normal Voice, No Airway Compromise Head: Atraumatic, Normocephalic Neck: Normal Inspection, Supple, Non-Tender, Full Range of Motion Respiratory/Chest: No Respiratory Distress, Lungs Clear, Normal Breath Sounds, No Accessory Muscle Use Cardiovascular: Normal Peripheral Pulses, Regular Rate, Rhythm, No Edema, No Murmur GI/Abdominal Exam: Normal Bowel Sounds, Soft, Tender. No: No Distention, Guarding, Rigid (Male) Exam: Deferred Rectal (Males) Exam: Deferred Back Exam: Full Range of Motion, Other (mild kyphosis) Extremities: Normal Inspection, Normal Range of Motion, Non-Tender, No Pedal Edema, Normal Capillary Refill Neurological: Alert, Oriented, Normal Cognition, No Motor/Sensory Deficits Psychiatric: Normal Affect, Normal Mood Skin Exam: Warm, Dry, Intact, Normal Color Course - Vital Signs Text/Narrative:: [id number]--bailee with patient and today's ER findings. He has been up to the bathroom without any difficulty patient is markedly improved at this time per his report. I discussed with him continued home medication use that he should take his second dose of medications as prescribed today before when he gets home before going to bed. He has no pain medications at home will provide him with that pain medication for home use and I have recommended that he contact his primary care provider tomorrow for ER follow-up and further care. Also discussed with him importance of staying hydrated ensuring drinking plenty of fluids--water, juices, sports drinks of choice. Patient and verbalized understanding agree with plan of care ready for discharge Last Recorded V/S: Last Vital Signs Temp 97.0 F 03/03/21 17:36 Pulse 74 03/03/21 19:36 Resp 17 03/03/21 19:36 BP 146/77 H 03/03/21 19:36 Pulse Ox 93 L 03/03/21 19:36 - Orders/Labs/Meds Orders: Active Orders 24 hr Category Date Time Status Peripheral IV Care [RC] . DIRECTED Care 03/03/21 19:05 Active Nothing per Oral Now Diet [DIET] Diet 03/03/21 Breakfast Active HYDROmorphone [Dilaudid] Med 03/03/21 19:02 Active 0.5 mg IVPUSH Q1H PRN Ondansetron [Zofran] Med 03/03/21 19:03 Active 4 mg IVPUSH Q6H PRN Sodium Chloride 0.9% [Saline Flush] Med 03/03/21 19:04 Active 10 ml FLUSH ASDIRECTED PRN Sodium Chloride 0.9% [Saline Flush] Med 03/03/21 19:04 Active 10 ml FLUSH ASDIRECTED PRN Peripheral IV Insertion Adult [OM.PC] Urgent Oth 03/03/21 19:04 Ordered Medication Orders Hydromorphone HCl (Hydromorphone 0.5 Mg/0.5 Ml Syringe) 0.5 mg IVPUSH Q1H PRN PRN Reason: Pain Last Admin: 03/03/21 19:24 Dose: 0.5 mg Documented by: TAYLOR Ondansetron HCl (Ondansetron 4 Mg/2 Ml Sdv) 4 mg IVPUSH Q6H PRN PRN Reason: Nausea/Vomiting Last Admin: 03/03/21 19:21 Dose: 4 mg Documented by: TAYLOR Sodium Chloride (Sodium Chloride 0.9% 10 Ml Syringe) 10 ml FLUSH ASDIRECTED PRN PRN Reason: Keep Vein Open Last Admin: 03/03/21 19:30 Dose: 10 ml Documented by: TAYLOR Sodium Chloride (Sodium Chloride 0.9% 10 Ml Syringe) 10 ml FLUSH ASDIRECTED PRN PRN Reason: Keep Vein Open Last Admin: 03/03/21 19:23 Dose: 10 ml Documented by: TAYLOR Labs: Laboratory Tests 03/03/21 03/03/21 03/03/21 Range/Units 19:20 19:20 19:20 WBC 9.7 (4.5-11.0) K/uL RBC 4.76 (4.30-5.90) M/uL Hgb 8.5 L (12.0-15.0) g/dL Hct 30.9 L (40.0-54.0) % MCV 65 L (80-98) fL MCH 18 L (27-31) pg MCHC 28 L (32-36) % Plt Count 307 (150-400) K/uL Neut % (Auto) 73.2 H (36-66) % Lymph % (Auto) 10.4 L (24-44) % [place] % (Auto) 15.1 H (2-6) % Eos % (Auto) 0.7 L (2-4) % Baso % (Auto) 0.6 (0-1) % PT 11.3 H (9.2-10.6) sec INR 1.1 APTT 23.4 (21.4-31.8) sec Sodium 136 L (140-148) mmol/L Potassium 4.0 (3.6-5.2) mmol/L Chloride 100 (100-108) mmol/L Carbon Dioxide 26 (21-32) mmol/L Anion Gap 14.0 (5.0-14.0) mmol/L BUN 18 (7-18) mg/dL Creatinine 0.9 (0.8-1.3) mg/dL Est Cr Clr Drug Dosing 64.37 mL/min Estimated GFR (MDRD) > 60 (>60) Glucose 115 H (74-106) mg/dL Calcium 8.4 L (8.5-10.1) mg/dL Total Bilirubin 0.7 (0.2-1.0) mg/dL AST 14 L (15-37) U/L ALT 17 (12-78) U/L Alkaline Phosphatase 75 (46-116) U/L Total Protein 6.1 L (6.4-8.2) g/dL Albumin 3.4 (3.4-5.0) g/dL Globulin 2.7 (2.3-3.5) g/dL Albumin/Globulin Ratio 1.3 (1.2-2.2) Meds: Medications Generic Name Dose Route Start Last Admin Trade Name Freq PRN Reason Stop Dose Admin Hydromorphone HCl 0.5 mg 03/03/21 19:02 03/03/21 19:24 Hydromorphone 0.5 Mg/0.5 Ml Syringe IVPUSH 0.5 mg Q1H PRN Administration Pain Ondansetron HCl 4 mg 03/03/21 19:03 03/03/21 19:21 Ondansetron 4 Mg/2 Ml Sdv IVPUSH 4 mg Q6H PRN Administration Nausea/Vomiting Sodium Chloride 10 ml 03/03/21 19:04 03/03/21 19:30 Sodium Chloride 0.9% 10 Ml Syringe FLUSH 10 ml ASDIRECTED PRN Administration Keep Vein Open Sodium Chloride 10 ml 03/03/21 19:04 03/03/21 19:23 Sodium Chloride 0.9% 10 Ml Syringe FLUSH 10 ml ASDIRECTED PRN Administration Keep Vein Open Discontinued Medications Generic Name Dose Route Start Last Admin Trade Name Freq PRN Reason Stop Dose Admin Pantoprazole Sodium 40 mg 03/03/21 19:04 03/03/21 19:32 Pantoprazole 40 Mg Vial IVPUSH 03/03/21 19:05 40 mg ONETIME ONE Administration - Radiology Interpretation CT Results Date: 03/02/21 (CT abdomen pelvis was completed on previous ER visit on 02 March impression is noted for punctate nonobstructing left renal calculi left 5 cheek diverticulosis without evidence of diverticulitis previous granul omatosis exposure no mass adenopathy or laboratory change) Departure - Departure Time of Disposition: 21:44 Disposition: Home, Self-Care 01 Condition: Good Clinical Impression: Colitis, Anemia, Bilateral lower abdominal cramping - Discharge Information *PRESCRIPTION DRUG MONITORING PROGRAM REVIEWED*: Yes *COPY OF PRESCRIPTION DRUG MONITORING REPORT IN PATIENT KATINA: Not Applicable Instructions: Ischemic Colitis, Pain Medicine Instructions, [id number], Colitis Referrals: Norman Lamb MD [Primary Care Provider] - Forms: ED Department Discharge Additional Instructions: Antibiotics as previously prescribedCipro 250 mg twice a day x5 days as well as Flagyl 250 mg 3 times a day x5 days. Please ensure that you get it your second dose in today before going to bed when you arrive at home I will provide you with a pain medication. This is for severe pain episodes. You should not drive or operate any heavy machinery when using this medication medication may cause drowsiness. Pain medication is not intended to relieve your pain completely but to decrease pain episodes and intensity. If you have any further pain medication needs and you will need to follow-up with your primary care provider for those I have provided you with a prescription for nausea medication called ondansetron (Zofran). Please ensure that you are staying well-hydrated drinking plenty of fluids such as water, juice, sports drinks of choice other options include soups Jell-O and popsicles advance her diet slowly as tolerated when you are feeling improved This time you have had 2 ER visits for similar complaints it is recommended that you contact your primary care provider Dr. Lamb tomorrow for ER follow-up understand you are scheduled next week but she should discuss with the clinic whether you need to be seen sooner Sepsis Event Note (ED) - Evaluation Sepsis Screening Result: No Definite Risk - Focused Exam Vital Signs: Vital Signs Temp Pulse Resp BP Pulse Ox 03/03/21 19:36 74 17 146/77 H 93 L 03/03/21 18:40 79 139/68 95 03/03/21 18:24 74 149/68 H 95 03/03/21 17:36 97.0 F 79 16 157/75 H 96 03/03/21 17:33 97.0 F 79 16 157/75 H 96 - My Orders Last 24 Hours: My Active Orders 03/03/21 Breakfast Nothing per Oral Now Diet [DIET] 03/03/21 19:02 HYDROmorphone [Dilaudid] 0.5 mg IVPUSH Q1H PRN 03/03/21 19:03 Ondansetron [Zofran] 4 mg IVPUSH Q6H PRN 03/03/21 19:04 Sodium Chloride 0.9% [Saline Flush] 10 ml FLUSH ASDIRECTED PRN Sodium Chloride 0.9% [Saline Flush] 10 ml FLUSH ASDIRECTED PRN Peripheral IV Insertion Adult [OM.PC] Urgent 03/03/21 19:05 Peripheral IV Care [RC] . DIRECTED - Assessment/Plan Last 24 Hours: My Active Orders 03/03/21 Breakfast Nothing per Oral Now Diet [DIET] 03/03/21 19:02 HYDROmorphone [Dilaudid] 0.5 mg IVPUSH Q1H PRN 03/03/21 19:03 Ondansetron [Zofran] 4 mg IVPUSH Q6H PRN 03/03/21 19:04 Sodium Chloride 0.9% [Saline Flush] 10 ml FLUSH ASDIRECTED PRN Sodium Chloride 0.9% [Saline Flush] 10 ml FLUSH ASDIRECTED PRN Peripheral IV Insertion Adult [OM.PC] Urgent 03/03/21 19:05 Peripheral IV Care [RC] . DIRECTED
== END 2021-03-03 22:25 | disposition home or self-care (01) ==
LOC: JP.ED 17:15
DX: K52.9 Noninfective gastroenteritis and colitis, unspecified (principal); D64.9 Anemia, unspecified; E78.00 Pure hypercholesterolemia, unspecified; I25.10 Atherosclerotic heart disease of native coronary artery without angina pectoris; I25.2 Old myocardial infarction; E11.9 Type 2 diabetes mellitus without complications; I10 Essential (primary) hypertension; K21.9 Gastro-esophageal reflux disease without esophagitis; Z91.09 Other allergy status, other than to drugs and biological substances; Z79.82 Long term (current) use of aspirin; Z79.4 Long term (current) use of insulin; Z79.899 Other long term (current) drug therapy
CPT/HCPCS: 36415; 80053; 85025; 85610; 85730; 96374; 96375; 99284; C9113; J1170; J2405

== ENCOUNTER 2021-03-12 19:41 | Emergency (ER) | payer MEDICARE, OTHER ==
[2021-03-12] MEDS ORDERED: Ondansetron 4 MG/2 ML SDV IVPUSH ONE (20:48)
[2021-03-12] MEDS ORDERED: HYDROmorphone 1 MG/ML Syringe IVPUSH ONE (20:48)
[2021-03-12] MEDS ORDERED: Sodium Chloride 0.9% 10 ML Syringe FLUSH PRN (20:48)
--- NOTE | 2021-03-12 22:41 | EDM.PDOC ---
ED HPI GENERAL MEDICAL PROBLEM - General Chief Complaint: Abdominal Pain Stated Complaint: SEVERE ABD PAIN Time Seen by Provider: 03/12/21 20:03 Source of Information: Reports: Patient, Old Records History Limitations: Reports: No Limitations - History of Present Illness INITIAL COMMENTS - FREE TEXT/NARRATIVE: Jose Luis is an 80-year-old male returns to the ED tonight for recurrence of low abdominal pain starting in the left lower quadrant and radiating to the suprapubic region. The patient has been having increasing frequency of this pain over the last several weeks and was seen in the ER on 2020 and 2025 2020 for similar symptoms. He underwent a CT of the abdomen and pelvis on 03/02/2021 that was unremarkable for any significant findings despite having a significant drop in hemoglobin. The patient was treated for colitis with Cipro and Flagyl after receiving a unit of packed red cells overnight. His pain worsened overnight and he returned on 03/03/2021 and was evaluated again for recurrence of left lower quadrant and suprapubic pain. At that time he also had labs drawn showing a hemoglobin of 8.5 but no other significant abnormalities. Patient was treated with Dilaudid and eventually went home. He had been doing well until this evening when he had recurrence of his pain prompting him to come back in for evaluation. 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 He recently was found to be anemic with a hemoglobin of 7.4 which is new for him and again as mentioned before was transfused 1 unit of blood and felt better going home later that day. He is scheduled to undergo evaluation with gastroenterology and urology at [facility]. He has been followed by Dr. Lamb who started him today on sulfamethoxazole/trimethoprim for E. coli in his urine from a urine culture that was obtained on 03/03/2021. Patient is taken 1 dose of this. He denies any urinary symptoms including urgency or frequency. He does have some burning with urination. Not had any fever or chills, headache or body aches, cough or shortness of breath, but has had some nausea without vomiting. Left Abdomen Pain Score (Numeric/FACES): 10 - Related Data Allergies Allergy/AdvReac Type Severity Reaction Status Date / Time dust mites Allergy Cannot Uncoded 03/12/21 20:03 Remember pollen Allergy Cannot Uncoded 03/12/21 20:03 Remember Home Meds: Home Meds Multivitamin with Minerals [Multiple Vitamin] 1 tab PO DAILY 06/18/13 [History] Simvastatin [Zocor] 20 mg PO DAILY 06/18/13 [History] metFORMIN [metFORMIN XR] 1,000 mg PO BID 06/18/13 [History] ramipriL [Altace] 2.5 mg PO DAILY 06/18/13 [History] Levothyroxine 137 mcg PO DAILY 06/19/13 [History] DULoxetine [Cymbalta] 20 mg PO DAILY 02/03/20 [History] Dulaglutide [Trulicity] 0.75 mg SQ ASDIRECTED 02/03/20 [History] Metoprolol Succinate 50 mg PO DAILY 02/03/20 [History] Mirtazapine 15 mg PO BEDTIME 02/03/20 [History] Omeprazole 1 tab PO DAILY 02/16/20 [History] Aspirin [Halfprin] 81 mg PO DAILY 03/02/21 [History] Insulin Degludec [Tresiba] 52 unit SUBCUT DAILY 03/02/21 [History] Ciprofloxacin [Ciprofloxacin HCl] 250 mg PO BID 5 Days #10 tab 03/03/21 [Rx] metroNIDAZOLE [Metronidazole] 250 mg PO TID 5 Days #15 tablet 03/03/21 [Rx] Past Medical History HEENT History: Reports: Hard of Hearing Cardiovascular History: Reports: CAD, High Cholesterol, Hypertension, [place] Respiratory History: Reports: None Gastrointestinal History: Reports: GERD, Other (See Below) Other Gastrointestinal History: colitis Genitourinary History: Reports: Prostate Disorder Musculoskeletal History: Reports: Arthritis, Fracture Neurological History: Reports: None Endocrine/Metabolic History: Reports: Diabetes, Type II Oncologic (Cancer) History: Reports: Prostate, Thyroid - Infectious Disease History Infectious Disease History: Reports: Chicken Pox, Herpes, Measles, Mumps - Past Surgical History HEENT Surgical History: Reports: Tonsillectomy GI Surgical History: Reports: None Male Surgical History: Reports: Prostatectomy Other Male Surgeries/Procedures: 12 years ago Endocrine Surgical History: Reports: Thyroidectomy Musculoskeletal Surgical History: Reports: Shoulder Surgery Social & Family History - Tobacco Use Tobacco Use Status *Q: Never Tobacco User - Caffeine Use Caffeine Use: Reports: None - Recreational Drug Use Recreational Drug Use: No ED ROS GENERAL - Review of Systems Review Of Systems: See Below Constitutional: Reports: Chills, Malaise HEENT: Reports: No Symptoms Respiratory: Reports: No Symptoms Cardiovascular: Reports: No Symptoms Endocrine: Reports: No Symptoms GI/Abdominal: Reports: Abdominal Pain (Left lower quadrant and suprapubic region), Diarrhea (Chronic loose stools), Nausea (Can Scott to pain). Denies: Vomiting ED EXAM, GI/ABD - Physical Exam Exam: See Below Exam Limited By: No Limitations General Appearance: Alert, Anxious, Moderate Distress Eyes: Bilateral: EOMI Throat/Mouth: Normal Inspection, Normal Oropharynx, Normal Voice, No Airway Compromise Head: Atraumatic, Normocephalic Neck: Normal Inspection, Supple, Non-Tender, Full Range of Motion Respiratory/Chest: No Respiratory Distress, Lungs Clear, Normal Breath Sounds, No Accessory Muscle Use Cardiovascular: Normal Peripheral Pulses, Regular Rate, Rhythm, No Murmur GI/Abdominal Exam: Normal Bowel Sounds, Soft, Distended (There appears to be a large area of fluid to percussion just below the umbilicus), Guarding (Just below the umbilicus), Tender (Left lower quadrant and suprapubic. Patient is exquisitely tender just below the umbilicus). No: Rigid, Rebound Back Exam: Normal Inspection Extremities: Normal Inspection Neurological: Alert, Oriented, Normal Cognition, No Motor/Sensory Deficits Psychiatric: Normal Affect, Normal Mood Skin Exam: Warm, Dry, Intact, Normal Color, No Rash Course - Vital Signs Last Recorded V/S: Last Vital Signs Temp 36.8 C 03/12/21 20:08 Pulse 74 03/13/21 01:12 Resp 16 03/13/21 01:12 BP 107/58 L 03/13/21 01:12 Pulse Ox 95 03/13/21 01:12 - Orders/Labs/Meds Orders: Active Orders 24 hr Category Date Time Status Abdomen 2V AP Flat Upright [CR] Stat Exams 03/12/21 20:48 Taken CULTURE URINE [RM] Stat Lab 03/12/21 23:33 Ordered Sodium Chloride 0.9% [Saline Flush] Med 03/12/21 20:48 Active 10 ml FLUSH ASDIRECTED PRN Saline Lock Insert [OM.PC] Routine Oth 03/12/21 20:48 Ordered Medication Orders Sodium Chloride (Sodium Chloride 0.9% 10 Ml Syringe) 10 ml FLUSH ASDIRECTED PRN PRN Reason: Keep Vein Open Last Admin: 03/12/21 21:03 Dose: 10 ml Documented by: ANNIKA Labs: Laboratory Tests 03/12/21 03/12/21 03/12/21 Range/Units 21:02 21:02 23:33 WBC 20.8 H (4.5-11.0) K/uL RBC 4.35 (4.30-5.90) M/uL Hgb 8.1 L (12.0-15.0) g/dL Hct 28.5 L (40.0-54.0) % MCV 66 L (80-98) fL MCH 19 L (27-31) pg MCHC 28 L (32-36) % Plt Count 411 H (150-400) K/uL Neut % (Auto) 85.6 H (36-66) % Lymph % (Auto) 3.6 L (24-44) % [place] % (Auto) 10.0 H (2-6) % Eos % (Auto) 0.6 L (2-4) % Baso % (Auto) 0.2 (0-1) % Sodium 135 L (140-148) mmol/L Potassium 4.4 (3.6-5.2) mmol/L Chloride 101 (100-108) mmol/L Carbon Dioxide 25 (21-32) mmol/L Anion Gap 13.4 (5.0-14.0) mmol/L BUN 23 H (7-18) mg/dL Creatinine 0.9 (0.8-1.3) mg/dL Est Cr Clr Drug Dosing 64.37 mL/min Estimated GFR (MDRD) > 60 (>60) Glucose 112 H (74-106) mg/dL Calcium 8.4 L (8.5-10.1) mg/dL Total Bilirubin 0.5 (0.2-1.0) mg/dL AST 15 (15-37) U/L ALT 22 (12-78) U/L Alkaline Phosphatase 83 (46-116) U/L C-Reactive Protein 4.83 H (0.0-0.3) mg/dL Total Protein 6.3 L (6.4-8.2) g/dL Albumin 3.1 L (3.4-5.0) g/dL Globulin 3.2 (2.3-3.5) g/dL Albumin/Globulin Ratio 1.0 L (1.2-2.2) Urine Color Yellow (YELLOW) Urine Appearance Slightly cloudy A (CLEAR) Urine pH 6.0 (5.0-8.0) Ur Specific [place] 1.025 (1.008-1.030) Urine Protein 100 H (NEGATIVE) mg/dL Urine Glucose (UA) Negative (NEGATIVE) mg/dL Urine Ketones Negative (NEGATIVE) mg/dL Urine Occult Blood Moderate H (NEGATIVE) Urine Nitrite Negative (NEGATIVE) Urine Bilirubin Negative (NEGATIVE) Urine Urobilinogen 0.2 (0.2-1.0) EU/dL Ur Leukocyte Esterase Negative (NEGATIVE) Urine RBC 5-10 H (0-5) Urine WBC 0-5 (0-5) Ur Epithelial Cells Not seen Amorphous Sediment Not seen Urine Bacteria Few Urine Mucus Rare Meds: Medications Generic Name Dose Route Start Last Admin Trade Name Freq PRN Reason Stop Dose Admin Sodium Chloride 10 ml 03/12/21 20:48 03/12/21 21:03 Sodium Chloride 0.9% 10 Ml Syringe FLUSH 10 ml ASDIRECTED PRN Administration Keep Vein Open Discontinued Medications Generic Name Dose Route Start Last Admin Trade Name Freq PRN Reason Stop Dose Admin Hydromorphone HCl 1 mg 03/12/21 20:48 03/12/21 21:03 Hydromorphone 1 Mg/Ml Syringe IVPUSH 03/12/21 20:49 1 mg ONETIME ONE Administration Sodium Chloride 100 mls @ 3.5 mls/sec 03/13/21 00:27 03/13/21 00:34 Normal Saline IV 03/13/21 00:28 3.5 mls/sec ASDIRECTED STA Administration Iopamidol 100 ml 03/13/21 00:26 03/13/21 00:34 Iopamidol 612 Mg/Ml 100 Ml Bottle IV 03/13/21 00:27 100 ml . DIRECTED STA Administration Ondansetron HCl 4 mg 03/12/21 20:48 03/12/21 21:02 Ondansetron 4 Mg/2 Ml Sdv IVPUSH 03/12/21 20:49 4 mg ONETIME ONE Administration - Radiology Interpretation Free Text/Narrative:: I reviewed the patient's 2 view abdomen x-ray showing normal contents without evidence for obstruction. Surgical aj are seen throughout the pelvis from the radical prostatectomy. I reviewed the images of the CT of the abdomen and pelvis with contrast as well as the report. The report is as follows: IMPRESSION: Left renal edema with mild left hydronephrosis and enhancement of the urothelium. These findings likely represent recent passage of a left renal stone. Presence of leukocytosis is concerning for superimposed pyelonephritis. Colonic diverticulosis. Small fat-containing left inguinal hernia. Status post prostatectomy. Dictated by Ana Vasques MD at 03/13/2021 1: 25: 11 AM - Re-Assessments/Exams Free Text/Narrative Re-Assessment/Exam: 03/13/21 00:27 I reviewed the patient's labs with a CBC showing a leukocytosis of 20.8 with 85% neutrophils, hemoglobin of 8.1, hematocrit of 28.5 and a platelet count of 411,000. The patient's comprehensive metabolic panel is unremarkable. His C-reactive protein is elevated at 4.85. Urinalysis is unremarkable with negative nitrites and leukocyte esterase but there is 0-5 RBCs and 0 WBCs noted. With a high leukocytosis and normal urine in combination with the increased left lower quadrant and suprapubic pain, I do believe we have to reimage the patient again with the CT of the abdomen and pelvis with contrast. With a negative urine he does not need to continue with the Bactrim as prescribed earlier today. 03/13/21 01:[address] of the abdomen and pelvis shows left-sided hydronephrosis with enhancement of the urothelium and left hydroureter without evidence of a s tone in either the ureter or bladder likely secondary to the recent passage of a stone. This would be consistent with the patient's pain pattern. The elevated leukocyte count may be due to demargination although this would be a bit high for demargination. There is no sign of infection elsewhere. The patient has adequate pain medication at home. He will contact his [facility] provider concerning whether or not to start the hydrocortisone enemas tomorrow. Indications return to the ED were discussed and he was discharged in satisfactory condition. Departure - Departure Time of Disposition: 01:42 Disposition: Home, Self-Care 01 Clinical Impression: Renal colic on left side, Calcium ureterolithiasis, Hydronephrosis of left kidney, Left nephrolithiasis, Diverticulosis of colon Anemia Qualifiers: Anemia type: unspecified type Qualified Code(s): D64.9 - Anemia, unspecified - Discharge Information Instructions: Kidney Stones, Renal Colic, [id number] Referrals: Norman Lamb MD [Primary Care Provider] - Forms: ED Department Discharge Care Plan Goals: Your work-up today has shown that your pain was likely due to passing a kidney stone from your right kidney. There is no evidence of the stone in either the kidney, ureter or bladder at this time but the scan did show that you had significant swelling of the left kidney and ureter consistent with a recently passed stone. There is a 2 mm stone still remaining in the left kidney but there were 2 other stones that are no longer seen when compared to your previous CT on 03/02/2021. You may take hydrocodone for pain control if the pain is mild to moderate and use the Dilaudid if it is more severe. I would encourage you to drink a lot of fluid over the next week consisting of about 10 ounces of water per hour while you are awake. This will ensure adequate urine flow and keep the ureter dilated so that it does not scar with a stricture as passage of a stone can cause a lot of traumatic damage to the ureter. This will also likely lessen the recurrence of pain related to ureteral spasm. I would recommend contacting your [facility] doctor to discuss whether or not to start the hydrocortisone enemas tomorrow. Feel free to contact us if you have any additional questions. Sepsis Event Note (ED) - Evaluation Sepsis Screening Result: No Definite Risk - Focused Exam Vital Signs: Vital Signs Temp Pulse Resp BP Pulse Ox 03/13/21 01:12 74 16 107/58 L 95 03/12/21 23:06 74 121/63 03/12/21 22:03 78 16 141/78 H 98 03/12/21 21:10 83 150/84 H 03/12/21 20:08 36.8 C 80 16 158/77 H 96 - Problem List & Annotations (1) Renal colic on left side SNOMED Code(s): 2376847 Code(s): N23 - UNSPECIFIED RENAL COLIC Status: Acute Priority: High Current Visit: Yes (2) Calcium ureterolithiasis SNOMED Code(s): 97478605 Code(s): N20.1 - CALCULUS OF URETER Status: Acute Priority: High Current Visit: Yes (3) Hydronephrosis of left kidney SNOMED Code(s): 38733146 Code(s): N13.30 - UNSPECIFIED HYDRONEPHROSIS Status: Acute Priority: High Current Visit: Yes (4) Left nephrolithiasis SNOMED Code(s): 88127891 Code(s): N20.0 - CALCULUS OF KIDNEY Status: Acute Priority: High Current Visit: Yes (5) Diverticulosis of colon SNOMED Code(s): 146887618, 827019914 Code(s): K57.30 - DVRTCLOS OF LG INT W/O PERFORATION OR ABSCESS W/O BLEEDING Status: Acute Priority: High Current Visit: Yes - Problem List Review Problem List Initiated/Reviewed/Updated: Yes - My Orders Last 24 Hours: My Active Orders 03/12/21 20:48 Abdomen 2V AP Flat Upright [CR] Stat Sodium Chloride 0.9% [Saline Flush] 10 ml FLUSH ASDIRECTED PRN Saline Lock Insert [OM.PC] Routine 03/12/21 23:33 CULTURE URINE [RM] Stat - Assessment/Plan Last 24 Hours: My Active Orders 03/12/21 20:48 Abdomen 2V AP Flat Upright [CR] Stat Sodium Chloride 0.9% [Saline Flush] 10 ml FLUSH ASDIRECTED PRN Saline Lock Insert [OM.PC] Routine 03/12/21 23:33 CULTURE URINE [RM] Stat
[2021-03-13] MEDS ORDERED: Iopamidol 612 MG/ML 100 ML Bottle IV STA (00:26)
[2021-03-13] MEDS ORDERED: Sodium Chloride 0.9% 100 ML IV STA (00:27)
--- NOTE | 2021-03-13 01:27 | CRLCT ---
For Patients: As a result of the Century Cures Act, medical imaging exams and procedure reports are released immediately into your electronic medical record. You may view this report before your referring provider. If you have questions, please contact your health care provider. INDICATION: Left lower quadrant pain, leukocytosis TECHNIQUE: CT abdomen and pelvis acquired with 100 cc Isovue-300 IV contrast. COMPARISON: March 02, 2021 FINDINGS: Lower chest: Calcified granuloma in the lingula. Liver: Unremarkable. Spleen: Tiny calcified granulomata. Pancreas: Unremarkable. Gallbladder and bile ducts: Unremarkable. Adrenal glands: Unremarkable. Kidneys: Mild left hydronephrosis. Enhancement of the left collecting system urothelium. No stone within the ureter or bladder. Mild fat stranding around the left ureter. Mild left renal edema. There is a nonobstructive 2 mm stone in the left kidney. On the prior CT, two small renal stones were identified. GI tract: Colonic diverticulosis. Appendix is normal. Vascular structures: Atherosclerotic calcification. Lymph nodes: Unremarkable. Miscellaneous: Small fat containing left inguinal hernia. No free air or significant free fluid. Pelvic Organs: Status post prostatectomy. Bones: Unremarkable for age. IMPRESSION: Left renal edema with mild left hydronephrosis and enhancement of the urothelium. These findings likely represent recent passage of a left renal stone. Presence of leukocytosis is concerning for superimposed pyelonephritis. Colonic diverticulosis. Small fat containing left inguinal hernia. Status post prostatectomy. Please note that all CT scans at this facility use dose modulation, iterative reconstruction, and/or weight-based dosing when appropriate to reduce radiation dose to as low as reasonably achievable. Dictated by Ana Vasques MD @ 03/13/2021 1:25:11 AM (Electronically Signed)
--- NOTE | 2021-03-13 09:06 | CR ---
Abdomen 2V AP Flat Upright CLINICAL HISTORY: Left lower quadrant pain FINDINGS: No free air is identified. There is gas and feces throughout the colon. Small intestinal gas pattern is nonacute. There has been previous pelvic surgery IMPRESSION: Nonspecific intestinal gas pattern
== END 2021-03-13 01:55 | disposition home or self-care (01) ==
LOC: JP.ED 19:41
DX: N13.2 Hydronephrosis with renal and ureteral calculous obstruction (principal); K57.30 Diverticulosis of large intestine without perforation or abscess without bleeding; D64.9 Anemia, unspecified; I25.10 Atherosclerotic heart disease of native coronary artery without angina pectoris; E78.00 Pure hypercholesterolemia, unspecified; I10 Essential (primary) hypertension; I25.2 Old myocardial infarction; K21.9 Gastro-esophageal reflux disease without esophagitis; E07.9 Disorder of thyroid, unspecified; Z79.899 Other long term (current) drug therapy; Z91.09 Other allergy status, other than to drugs and biological substances; Z79.4 Long term (current) use of insulin; Z79.82 Long term (current) use of aspirin
CPT/HCPCS: 36415; 74019; 74177; 80053; 81001; 85025; 86140; 87086; 87088; 87186; 96374; 96375; 99284; J1170; J2405; Q9967

== ENCOUNTER 2021-03-13 16:04 | Emergency (ER) | payer MEDICARE ==
[2021-03-13] MEDS ORDERED: Ondansetron 4 MG/2 ML SDV IVPUSH ONE (18:00)
[2021-03-13] MEDS ORDERED: Sodium Chloride 0.9% 10 ML Syringe FLUSH PRN (18:00)
[2021-03-13] MEDS ORDERED: HYDROmorphone 1 MG/ML Syringe IVPUSH ONE (18:00)
--- NOTE | 2021-03-14 01:50 | EDM.PDOC ---
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 Patient reportedly took 2 of his Dilaudid 2.5 mg tablets without any relief and continued to have worsening pain prompting him to come in for reevaluation. I had seen Jose Luis yesterday for similar presentation although his pain was much stronger yesterday and thought to be due to passage of a kidney stone. In both instances, the patient receives IV Dilaudid and the pain goes away for quite some time. There are some reason the oral Dilaudid does not seem to be as effective. 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 The radical prostatectomy was 14 years ago and the proton beam radiation was 3 to 4 years ago. He is followed by Dr. Briscoe at the [facility] in [place] who is his radiation oncologist. The patient recently underwent a colonoscopy at [facility] which was unremarkable for any significant findings. The patient has been in contact with Dr. Briscoe who had prescribed hydrocortisone enemas to try to calm the proctitis. The patient started having bleeding per rectum after undergoing it and angioplasty with stent placement resulting in him being on Plavix. He has not had any bleeding from the rectum recently, although his hemoglobin was found to be low late last month and he received a unit of packed red cells for hemoglobin of 7.4. His hemoglobin yesterday was 8.1. He did undergo a CT of the abdomen and pelvis which demonstrated the absence of 2 nephrolithiasis in the left kidney and a dilated renal pelvis and ureter consistent with the recent passage of a stone. He did have mild hydronephrosis on the left side as well. He does have a 2 mm stone still remaining in the kidney at the calyx. He denies any fever or chills but did have nausea with the pain. The pain is on the left lower quadrant. It started after he was doing his hydrocortisone enema when he has to lay on his left side. The patient states that it felt like it was on fire and just burning. - Related Data Allergies Allergy/AdvReac Type Severity Reaction Status Date / Time dust mites Allergy Cannot Uncoded 03/13/21 17:35 Remember pollen Allergy Cannot Uncoded 03/13/21 17:35 Remember Home Meds: Home Meds Multivitamin with Minerals [Multiple Vitamin] 1 tab PO DAILY 06/18/13 [History] Simvastatin [Zocor] 20 mg PO DAILY 06/18/13 [History] metFORMIN [metFORMIN XR] 1,000 mg PO BID 06/18/13 [History] ramipriL [Altace] 2.5 mg PO DAILY 06/18/13 [History] Levothyroxine 137 mcg PO DAILY 06/19/13 [History] DULoxetine [Cymbalta] 20 mg PO DAILY 02/03/20 [History] Dulaglutide [Trulicity] 0.75 mg SQ ASDIRECTED 02/03/20 [History] Metoprolol Succinate 50 mg PO DAILY 02/03/20 [History] Mirtazapine 15 mg PO BEDTIME 02/03/20 [History] Omeprazole 1 tab PO DAILY 02/16/20 [History] Aspirin [Halfprin] 81 mg PO DAILY 03/02/21 [History] Insulin Degludec [Tresiba] 52 unit SUBCUT DAILY 03/02/21 [History] Ciprofloxacin [Ciprofloxacin HCl] 250 mg PO BID 5 Days #10 tab 03/03/21 [Rx] metroNIDAZOLE [Metronidazole] 250 mg PO TID 5 Days #15 tablet 03/03/21 [Rx] sulfaSALAzine [sulfaSALAzine DR] 500 mg PO TID #83 tab.ec 03/14/21 [Rx] Past Medical History HEENT History: Reports: Hard of Hearing Cardiovascular History: Reports: CAD, High Cholesterol, Hypertension, [place] Respiratory History: Reports: None Gastrointestinal History: Reports: GERD, Other (See Below) Other Gastrointestinal History: colitis Genitourinary History: Reports: Prostate Disorder Musculoskeletal History: Reports: Arthritis, Fracture Neurological History: Reports: None Endocrine/Metabolic History: Reports: Diabetes, Type II Oncologic (Cancer) History: Reports: Prostate, Thyroid - Infectious Disease History Infectious Disease History: Reports: Chicken Pox, Herpes, Measles, Mumps - Past Surgical History HEENT Surgical History: Reports: Tonsillectomy GI Surgical History: Reports: None Male Surgical History: Reports: Prostatectomy Other Male Surgeries/Procedures: 12 years ago Endocrine Surgical History: Reports: Thyroidectomy Musculoskeletal Surgical History: Reports: Shoulder Surgery Social & Family History - Tobacco Use Tobacco Use Status *Q: Former Tobacco User Years of Tobacco use: 10 Packs/Tins Daily: 0.5 Used Tobacco, but Quit: Yes Month/Year Tobacco Last Used: 50 - Caffeine Use Caffeine Use: Reports: Soda Other Caffeine Use: diet pop X1 daily - Alcohol Use Days Per Week of Alcohol Use: 1 Number of Drinks Per Day: 1 Total Drinks Per Week: 1 - Recreational Drug Use Recreational Drug Use: No ED ROS GENERAL - Review of Systems Review Of Systems: See Below Constitutional: Reports: No Symptoms HEENT: Reports: No Symptoms Respiratory: Reports: No Symptoms Cardiovascular: Reports: No Symptoms Endocrine: Reports: No Symptoms GI/Abdominal: Reports: Abdominal Pain (Left lower quadrant pain radiating to the suprapubic region), Nausea (Only when having pain). Denies: Black Stool, Bloody Stool, Decreased Appetite, Hematochezia, Melena, Vomiting Musculoskeletal: Reports: No Symptoms Skin: Reports: No Symptoms Neurological: Reports: No Symptoms Psychiatric: Reports: No Symptoms Hematologic/Lymphatic: Reports: No Symptoms ED EXAM, GI/ABD - Physical Exam Exam: See Below Exam Limited By: No Limitations General Appearance: Alert, Anxious, Moderate Distress Throat/Mouth: Normal Inspection, Normal Oropharynx, Normal Voice, No Airway Compromise Head: Normocephalic Neck: Normal Inspection Respiratory/Chest: No Respiratory Distress, Lungs Clear, Normal Breath Sounds Cardiovascular: Normal Peripheral Pulses, Regular Rate, Rhythm, No Murmur GI/Abdominal Exam: Normal Bowel Sounds, Soft, Tender (Left lower quadrant). No: Guarding, Rebound Extremities: Normal Inspection Neurological: Alert, Oriented, Normal Cognition Psychiatric: Normal Affect, Normal Mood Skin Exam: Warm, Dry, Intact, Normal Color Course - Vital Signs Last Recorded V/S: Last Vital Signs Temp 36.5 C 03/13/21 17:35 Pulse 76 03/13/21 19:39 Resp 16 03/13/21 17:35 BP 145/74 H 03/13/21 19:39 Pulse Ox 91 L 03/13/21 19:39 - Orders/Labs/Meds Orders: Active Orders 24 hr Category Date Time Status Sodium Chloride 0.9% [Saline Flush] Med 03/13/21 18:00 Active 10 ml FLUSH ASDIRECTED PRN Saline Lock Insert [OM.PC] Routine Oth 03/13/21 18:00 Ordered Medication Orders Sodium Chloride (Sodium Chloride 0.9% 10 Ml Syringe) 10 ml FLUSH ASDIRECTED PRN PRN Reason: Keep Vein Open Last Admin: 03/13/21 18:46 Dose: 10 ml Documented by: ELIZABETH Labs: Laboratory Tests 03/13/21 03/13/21 03/13/21 Range/Units 18:00 18:00 18:00 WBC 14.7 H (4.5-11.0) K/uL RBC 4.67 (4.30-5.90) M/uL Hgb 8.3 L (12.0-15.0) g/dL Hct 29.9 L (40.0-54.0) % MCV 64 L (80-98) fL MCH 18 L (27-31) pg MCHC 28 L (32-36) % Plt Count 459 H (150-400) K/uL Neut % (Auto) 86.8 H (36-66) % Lymph % (Auto) 4.4 L (24-44) % [place] % (Auto) 8.2 H (2-6) % Eos % (Auto) 0.4 L (2-4) % Baso % (Auto) 0.2 (0-1) % ESR (0-20) mm/hr Sodium 135 L (140-148) mmol/L Potassium 4.4 (3.6-5.2) mmol/L Chloride 100 (100-108) mmol/L Carbon Dioxide 26 (21-32) mmol/L Anion Gap 13.4 (5.0-14.0) mmol/L BUN 19 H (7-18) mg/dL Creatinine 1.1 (0.8-1.3) mg/dL Est Cr Clr Drug Dosing 52.67 mL/min Estimated GFR (MDRD) > 60 (>60) Glucose 115 H (74-106) mg/dL Lactic Acid 1.0 (0.4-2.0) mmol/L Calcium 8.4 L (8.5-10.1) mg/dL Total Bilirubin 0.5 (0.2-1.0) mg/dL AST 15 (15-37) U/L ALT 22 (12-78) U/L Alkaline Phosphatase 85 (46-116) U/L C-Reactive Protein (0.0-0.3) mg/dL Total Protein 6.4 (6.4-8.2) g/dL Albumin 3.2 L (3.4-5.0) g/dL Globulin 3.2 (2.3-3.5) g/dL Albumin/Globulin Ratio 1.0 L (1.2-2.2) Urine Color (YELLOW) Urine Appearance (CLEAR) Urine pH (5.0-8.0) Ur Specific [place] (1.008-1.030) Urine Protein (NEGATIVE) mg/dL Urine Glucose (UA) (NEGATIVE) mg/dL Urine Ketones (NEGATIVE) mg/dL Urine Occult Blood (NEGATIVE) Urine Nitrite (NEGATIVE) Urine Bilirubin (NEGATIVE) Urine Urobilinogen (0.2-1.0) EU/dL Ur Leukocyte Esterase (NEGATIVE) Urine RBC (0-5) Urine WBC (0-5) Ur Epithelial Cells Urine Bacteria Urine Mucus 03/13/21 03/13/21 03/13/21 Range/Units 18:00 18:00 19:48 WBC (4.5-11.0) K/uL RBC (4.30-5.90) M/uL Hgb (12.0-15.0) g/dL Hct (40.0-54.0) % MCV (80-98) fL MCH (27-31) pg MCHC (32-36) % Plt Count (150-400) K/uL Neut % (Auto) (36-66) % Lymph % (Auto) (24-44) % [place] % (Auto) (2-6) % Eos % (Auto) (2-4) % Baso % (Auto) (0-1) % ESR 36 H (0-20) mm/hr Sodium (140-148) mmol/L Potassium (3.6-5.2) mmol/L Chloride (100-108) mmol/L Carbon Dioxide (21-32) mmol/L Anion Gap (5.0-14.0) mmol/L BUN (7-18) mg/dL Creatinine (0.8-1.3) mg/dL Est Cr Clr Drug Dosing mL/min Estimated GFR (MDRD) (>60) Glucose (74-106) mg/dL Lactic Acid (0.4-2.0) mmol/L Calcium (8.5-10.1) mg/dL Total Bilirubin (0.2-1.0) mg/dL AST (15-37) U/L ALT (12-78) U/L Alkaline Phosphatase (46-116) U/L C-Reactive Protein 3.32 H (0.0-0.3) mg/dL Total Protein (6.4-8.2) g/dL Albumin (3.4-5.0) g/dL Globulin (2.3-3.5) g/dL Albumin/Globulin Ratio (1.2-2.2) Urine Color Yellow (YELLOW) Urine Appearance Clear (CLEAR) Urine pH 6.0 (5.0-8.0) Ur Specific [place] 1.020 (1.008-1.030) Urine Protein 30 H (NEGATIVE) mg/dL Urine Glucose (UA) Negative (NEGATIVE) mg/dL Urine Ketones Negative (NEGATIVE) mg/dL Urine Occult Blood Negative (NEGATIVE) Urine Nitrite Negative (NEGATIVE) Urine Bilirubin Negative (NEGATIVE) Urine Urobilinogen 0.2 (0.2-1.0) EU/dL Ur Leukocyte Esterase Negative (NEGATIVE) Urine RBC 0-5 (0-5) Urine WBC 0-5 (0-5) Ur Epithelial Cells Not seen Urine Bacteria Not seen Urine Mucus Rare Meds: Medications Generic Name Dose Route Start Last Admin Trade Name Alida PRN Reason Stop Dose Admin Sodium Chloride 10 ml 03/13/21 18:00 03/13/21 18:46 Sodium Chloride 0.9% 10 Ml Syringe FLUSH 10 ml ASDIRECTED PRN Administration Keep Vein Open Discontinued Medications Generic Name Dose Route Start Last Admin Trade Name Alida PRN Reason Stop Dose Admin Hydromorphone HCl 1 mg 03/13/21 18:00 03/13/21 18:42 Hydromorphone 1 Mg/Ml Syringe IVPUSH 03/13/21 18:01 1 mg ONETIME ONE Administration Ondansetron HCl 4 mg 03/13/21 18:00 03/13/21 18:39 Ondansetron 4 Mg/2 Ml Sdv IVPUSH 03/13/21 18:01 4 mg ONETIME ONE Administration Sulfasalazine 500 mg 03/14/21 06:00 Sulfasalazine 500 Mg Tab PO 03/14/21 06:01 ONETIME ONE - Re-Assessments/Exams Free Text/Narrative Re-Assessment/Exam: 03/14/21 01:53 I reviewed the patient's labs including a CBC with a leukocyte count of 14.7 which is down from 20.8 yesterday, hemoglobin of 8.3 which is up from 8.1 yesterday, hematocrit of 29.9 and a platelet count of 459,000. His comprehensive metabolic panel shows a sodium 135, potassium 4.4, chloride of 100, bicarbonate of 26, BUN of 19 with a creatinine 1.1 and a glucose of 115. His albumin is 3.2 with a calcium of 8.4. His C-reactive protein is 3.32 and his erythrocyte sedimentation rate is 36. This is significant inflammation both acute and chronic suggesting that this is ongoing chronic radiation induced p roctitis with referred pain to the left lower quadrant. His urinalysis is unremarkable. The patient was given milligram of Dilaudid IV and has significant improvement in his pain. I have not read on imaging as I believe this is probably chronic radiation-induced proctitis and may have been exacerbated by the hydrocortisone enema today. It is unclear why 1 mg of Dilaudid IV cannot completely control his pain but 5 mg of Dilaudid p.o. does nothing for his pain. As this is his fourth trip to the emergency room in the last 10 days I think I will keep him overnight on observation in the ED to see if we get recurrence of his pain at which point we can better observe the full cycle what he is experiencing. My plan is to be gets recurrence of the symptoms to try either Levsin or Bentyl to see if there is a spasmodic component to this that may be treated with these medications. Does not seem to be associated with any timing of when he eats. 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 The patient has not been having any benefit from taking oral Dilaudid so we will try oxycodone/acetaminophen instead to see if this provides better pain management. After extensive reading on chronic radiation associated proctitis, the patient was already initiated on hydrocortisone enemas and I am adding a DMARD, sulfasalazine DR 500 mg 3 times daily for 4 weeks as recommended. The patient should try to contact his radiation oncologist, Dr. Briscoe at [facility] on Tuesday to let them know first off about the new imaging showing the recent passage of the left kidney stone and to the initiation of the sulfasalazine in addition to the hydrocortisone enemas that were prescribed. My hope is that this will help maintain adequate symptomatic control and allow Jose Luis to remain out of the hospital. I discussed this with Jose Luis this morning and he is in agreement to try this plan. I have prescribed him oxycodone 5/325 mg 1 to 2 tablets every 4 hours as needed for moderate to severe pain dispensing 12 tablets. This was sent to the [facility]. In addition, I have also prescribed the sulfasalazine DR 500 mg 3 times a day for 4 weeks which was printed so the patient may fill it at his pharmacy. I attempted to contact [facility] making several phone calls to the transfer line but have not heard back from them overnight. Jose Luis has not had any recurrence of his abdominal pain since arriving here so I do believe that he could probably go home this morning and if he has recurrence of sure they will return. Departure - Departure Time of Disposition: 06:30 Disposition: Home, Self-Care 01 Clinical Impression: Radiation induced proctitis - Discharge Information Prescriptions: sulfaSALAzine [sulfaSALAzine DR] 500 mg PO TID #83 tab.ec Instructions: Proctitis Referrals: PCP,None [Primary Care Provider] - Forms: ED Department Discharge Care Plan Goals: After digging down deep through your medical records and looking at both labs done tonight as well as previously both through [facility] and [facility], [facility], and [facility], I feel that this is likely related to chronic radiation associated proctitis. I think we should do the trial of the hydrocortisone enemas twice daily for the next [address] initiated by [address]. Briscoe but I also did a significant amount of reading on the subject this evening and up to date recommends also the addition of a DMARD called sulfasalazine which is a potent anti-inflammatory used in ulcerative colitis, Crohn's disease, and rheumatoid arthritis that is also recommended in chronic radiation associated proctitis. I have a prescription for you for sulfasalazine DR which is an extended release version 500 mg 3 times a day for the next 4 weeks. The first dose will be given to you in the ER with a small amount of food. The recommendation is you take it with a snack and not on an empty stomach. In addition, as the Dilaudid pills do not seem to be helping we will try oxycodone/acetaminophen (Percocet) 5/325 mg 1 to 2 tablets every 4 hours as needed for moderate to severe pain. I can dispense 10 of them in the [employer] med machine so you that you have them today. I would contact Dr. Briscoe at [facility] on Tuesday first to tell him that you had imaging done on showing that you have a past a kidney stone and secondly that we started the sulfasalazine so that we all stay on the same page. Certainly if you have recurrence of pain we will do the best we can to help manage this. Sepsis Event Note (ED) - Evaluation Sepsis Screening Result: No Definite Risk - Focused Exam Vital Signs: Vital Signs Pulse BP Pulse Ox 03/13/21 19:39 76 145/74 H 91 L - Problem List & Annotations (1) Radiation induced proctitis SNOMED Code(s): 898675148 Code(s): K62.7 - RADIATION PROCTITIS Status: Chronic Priority: High Current Visit: Yes - Problem List Review Problem List Initiated/Reviewed/Updated: Yes - My Orders Last 24 Hours: My Active Orders 03/13/21 18:00 Sodium Chloride 0.9% [Saline Flush] 10 ml FLUSH ASDIRECTED PRN Saline Lock Insert [OM.PC] Routine - Assessment/Plan Last 24 Hours: My Active Orders 03/13/21 18:00 Sodium Chloride 0.9% [Saline Flush] 10 ml FLUSH ASDIRECTED PRN Saline Lock Insert [OM.PC] Routine
[2021-03-14] MEDS ORDERED: sulfaSALAzine 500 MG Tab PO ONE (06:00)
== END 2021-03-14 07:13 | disposition home or self-care (01) ==
LOC: JP.ED 16:04
DX: K62.7 Radiation proctitis (principal); I25.10 Atherosclerotic heart disease of native coronary artery without angina pectoris; E78.00 Pure hypercholesterolemia, unspecified; I10 Essential (primary) hypertension; I25.2 Old myocardial infarction; E11.9 Type 2 diabetes mellitus without complications; Z79.4 Long term (current) use of insulin; K21.9 Gastro-esophageal reflux disease without esophagitis; Z79.82 Long term (current) use of aspirin; Z79.84 Long term (current) use of oral hypoglycemic drugs; Z91.048 Other nonmedicinal substance allergy status; Z87.891 Personal history of nicotine dependence; W88.8XXA Exposure to other ionizing radiation, initial encounter
CPT/HCPCS: 36415; 80053; 81001; 83605; 85025; 85651; 86140; 96374; 96375; 99284; A9270; J1170; J2405

== ENCOUNTER 2021-03-17 00:33 | Emergency (ER) | payer MEDICARE, OTHER ==
[2021-03-17] MEDS ORDERED: Sodium Chloride 0.9% 10 ML Syringe FLUSH PRN (00:47)
[2021-03-17] MEDS ORDERED: HYDROmorphone 1 MG/ML Syringe IVPUSH ONE ×2 (00:47→02:45)
--- NOTE | 2021-03-17 01:00 | EDM.PDOC ---
ED HPI GENERAL MEDICAL PROBLEM - General Chief Complaint: Abdominal Pain Stated Complaint: ABD PAIN Time Seen by Provider: 03/17/21 00:41 Source of Information: Reports: Patient, Old Records History Limitations: Reports: No Limitations - History of Present Illness INITIAL COMMENTS - FREE TEXT/NARRATIVE: Jose Luis is an 80-year-old male who is well-known to me from previous ER visits who presents today with recurrence of his left lower quadrant abdominal pain that started several hours ago. Patient states the pain started around 2100 hrs. and he took a Percocet. The pain did not improve so he took the second Percocet and still did not have any improvement finally prompting to come in after 3 hours. The pain is very similar to when he presented the 2 previous times. It does cause some nausea. Davon reports that he has had a of fair amount of diarrhea today and took Imodium twice which seems to have stopped the diarrhea. He has been taking his sulfasalazine 3 times a day and his hydrocortisone enemas twice a day as prescribed. 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 He denies any nausea or vomiting but still has a markedly diminished appetite. Today his belly appears much more distended. The patient had no recurrent episodes of his left lower quadrant abdominal pain from when I saw him on Tuesday until today and they were hoping that this was all behind him until 2100 hrs. when the pain recurred. The patient is managed locally by Dr. Lamb and by his radiation oncologist Dr. Briscoe at [facility]. 4 days ago I diagnosed the patient with a recently passed ureterolithiasis with left flank pain and 3 days ago I saw the patient for recurrence of his proctitis starting him on the sulfasalazine. Left Abdomen Pain Score (Numeric/FACES): 10 - Related Data Allergies Allergy/AdvReac Type Severity Reaction Status Date / Time dust mites Allergy Cannot Uncoded 03/17/21 00:37 Remember pollen Allergy Cannot Uncoded 03/17/21 00:37 Remember Home Meds: Home Meds Multivitamin with Minerals [Multiple Vitamin] 1 tab PO DAILY 06/18/13 [History] Simvastatin [Zocor] 20 mg PO DAILY 06/18/13 [History] metFORMIN [metFORMIN XR] 1,000 mg PO BID 06/18/13 [History] ramipriL [Altace] 2.5 mg PO DAILY 06/18/13 [History] Levothyroxine 137 mcg PO DAILY 06/19/13 [History] DULoxetine [Cymbalta] 20 mg PO DAILY 02/03/20 [History] Dulaglutide [Trulicity] 0.75 mg SQ ASDIRECTED 02/03/20 [History] Metoprolol Succinate 50 mg PO DAILY 02/03/20 [History] Mirtazapine 15 mg PO BEDTIME 02/03/20 [History] Omeprazole 1 tab PO DAILY 02/16/20 [History] Aspirin [Halfprin] 81 mg PO DAILY 03/02/21 [History] Insulin Degludec [Tresiba] 52 unit SUBCUT DAILY 03/02/21 [History] Ciprofloxacin [Ciprofloxacin HCl] 250 mg PO BID 5 Days #10 tab 03/03/21 [Rx] metroNIDAZOLE [Metronidazole] 250 mg PO TID 5 Days #15 tablet 03/03/21 [Rx] sulfaSALAzine [sulfaSALAzine DR] 500 mg PO TID #83 tab.ec 03/14/21 [Rx] Ketorolac [Toradol] 10 mg PO Q6H PRN #20 tab 03/17/21 [Rx] Past Medical History HEENT History: Reports: Hard of Hearing Cardiovascular History: Reports: CAD, High Cholesterol, Hypertension, [place] Respiratory History: Reports: None Gastrointestinal History: Reports: GERD, Other (See Below) Other Gastrointestinal History: colitis Genitourinary History: Reports: Prostate Disorder Musculoskeletal History: Reports: Arthritis, Fracture Neurological History: Reports: None Endocrine/Metabolic History: Reports: Diabetes, Type II Oncologic (Cancer) History: Reports: Prostate, Thyroid - Infectious Disease History Infectious Disease History: Reports: Chicken Pox, Herpes, Measles, Mumps - Past Surgical History HEENT Surgical History: Reports: Tonsillectomy GI Surgical History: Reports: None Male Surgical History: Reports: Prostatectomy Other Male Surgeries/Procedures: 12 years ago Endocrine Surgical History: Reports: Thyroidectomy Musculoskeletal Surgical History: Reports: Shoulder Surgery Social & Family History - Tobacco Use Tobacco Use Status *Q: Former Tobacco User Years of Tobacco use: 10 Used Tobacco, but Quit: Yes Month/Year Tobacco Last Used: 1983 - Caffeine Use Caffeine Use: Reports: Soda Other Caffeine Use: diet pop X1 daily Caffeine Use Comment: one per day - Alcohol Use Days Per Week of Alcohol Use: 1 Number of Drinks Per Day: 1 Total Drinks Per Week: 1 - Recreational Drug Use Recreational Drug Use: No ED ROS GENERAL - Review of Systems Review Of Systems: See Below Constitutional: Reports: Decreased Appetite HEENT: Reports: No Symptoms Respiratory: Reports: No Symptoms Cardiovascular: Reports: No Symptoms Endocrine: Reports: No Symptoms GI/Abdominal: Reports: Abdominal Pain (Left lower quadrant and left flank pain), Diarrhea, Decreased Appetite, Nausea : Reports: Flank Pain (Left flank) Musculoskeletal: Reports: No Symptoms Skin: Reports: No Symptoms Neurological: Reports: No Symptoms Psychiatric: Reports: No Symptoms Hematologic/Lymphatic: Reports: Anemia (Thought to be due to GI blood loss) Immunologic: Reports: No Symptoms ED EXAM, GI/ABD - Physical Exam Exam: See Below Exam Limited By: No Limitations General Appearance: Alert, Anxious, Moderate Distress Eyes: Bilateral: EOMI Throat/Mouth: Normal Inspection, Normal Oropharynx, Normal Voice, No Airway Compromise Head: Atraumatic, Normocephalic Neck: Normal Inspection, Supple Respiratory/Chest: No Respiratory Distress, Lungs Clear, Normal Breath Sounds Cardiovascular: Normal Peripheral Pulses, Regular Rate, Rhythm, No Murmur GI/Abdominal Exam: Soft, Distended (Tympany to percussion in the right upper quadrant. Fluid throughout the abdomen to percussion), Guarding (Left lower quadrant), Tender (Left lower quadrant), Abnormal Bowel Sounds (Diminished bowel sounds). No: Rigid, Rebound Extremities: Normal Inspection Neurological: Alert, Oriented, Normal Cognition, No Motor/Sensory Deficits Psychiatric: Normal Affect, Anxious Skin Exam: Warm, Dry, Intact, No Rash, Pallor Course - Vital Signs Last Recorded V/S: Last Vital Signs Temp 36.6 C 03/17/21 00:48 Pulse 69 03/17/21 00:48 Resp 16 03/17/21 00:48 BP 158/56 H 03/17/21 00:48 Pulse Ox 98 03/17/21 00:48 - Orders/Labs/Meds Orders: Active Orders 24 hr Category Date Time Status Abdomen 2V AP Flat Upright [CR] Stat Exams 03/17/21 01:04 Taken Sodium Chloride 0.9% [Saline Flush] Med 03/17/21 00:47 Active 10 ml FLUSH ASDIRECTED PRN Saline Lock Insert [OM.PC] Routine Oth 03/17/21 00:47 Ordered Medication Orders Sodium Chloride (Sodium Chloride 0.9% 10 Ml Syringe) 10 ml FLUSH ASDIRECTED PRN PRN Reason: Keep Vein Open Last Admin: 03/17/21 01:03 Dose: 10 ml Documented by: ANNIKA Labs: Laboratory Tests 03/17/21 03/17/21 03/17/21 Range/Units 01:00 01:00 01:04 WBC 12.2 H (4.5-11.0) K/uL RBC 4.70 (4.30-5.90) M/uL Hgb 8.5 L (12.0-15.0) g/dL Hct 30.2 L (40.0-54.0) % MCV 64 L (80-98) fL MCH 18 L (27-31) pg MCHC 28 L (32-36) % Plt Count 555 H (150-400) K/uL Neut % (Auto) 73.0 H (36-66) % Lymph % (Auto) 11.7 L (24-44) % Jack % (Auto) 13.5 H (2-6) % Eos % (Auto) 1.1 L (2-4) % Baso % (Auto) 0.7 (0-1) % ESR 23 H (0-20) mm/hr Sodium 142 (140-148) mmol/L Potassium 3.6 (3.6-5.2) mmol/L Chloride 105 (100-108) mmol/L Carbon Dioxide 24 (21-32) mmol/L Anion Gap 13.0 (5.0-14.0) mmol/L BUN 26 H (7-18) mg/dL Creatinine 1.0 (0.8-1.3) mg/dL Est Cr Clr Drug Dosing 57.74 mL/min Estimated GFR (MDRD) > 60 (>60) Glucose 164 H (74-106) mg/dL Lactic Acid 1.9 (0.4-2.0) mmol/L Calcium 8.7 (8.5-10.1) mg/dL Total Bilirubin 0.4 (0.2-1.0) mg/dL AST 20 (15-37) U/L ALT 38 (12-78) U/L Alkaline Phosphatase 94 (46-116) U/L C-Reactive Protein 0.75 H (0.0-0.3) mg/dL Total Protein 6.3 L (6.4-8.2) g/dL Albumin 3.1 L (3.4-5.0) g/dL Globulin 3.2 (2.3-3.5) g/dL Albumin/Globulin Ratio 1.0 L (1.2-2.2) Urine Color (YELLOW) Urine Appearance (CLEAR) Urine pH (5.0-8.0) Ur Specific [place] (1.008-1.030) Urine Protein (NEGATIVE) mg/dL Urine Glucose (UA) (NEGATIVE) mg/dL Urine Ketones (NEGATIVE) mg/dL Urine Occult Blood (NEGATIVE) Urine Nitrite (NEGATIVE) Urine Bilirubin (NEGATIVE) Urine Urobilinogen (0.2-1.0) EU/dL Ur Leukocyte Esterase (NEGATIVE) Urine RBC (0-5) Urine WBC (0-5) Ur Epithelial Cells Amorphous Sediment Urine Bacteria Urine Mucus Urine Other 03/17/21 Range/Units 01:05 WBC (4.5-11.0) K/uL RBC (4.30-5.90) M/uL Hgb (12.0-15.0) g/dL Hct (40.0-54.0) % MCV (80-98) fL MCH (27-31) pg MCHC (32-36) % Plt Count (150-400) K/uL Neut % (Auto) (36-66) % Lymph % (Auto) (24-44) % Jack % (Auto) (2-6) % Eos % (Auto) (2-4) % Baso % (Auto) (0-1) % ESR (0-20) mm/hr Sodium (140-148) mmol/L Potassium (3.6-5.2) mmol/L Chloride (100-108) mmol/L Carbon Dioxide (21-32) mmol/L Anion Gap (5.0-14.0) mmol/L BUN (7-18) mg/dL Creatinine (0.8-1.3) mg/dL Est Cr Clr Drug Dosing mL/min Estimated GFR (MDRD) (>60) Glucose (74-106) mg/dL Lactic Acid (0.4-2.0) mmol/L Calcium (8.5-10.1) mg/dL Total Bilirubin (0.2-1.0) mg/dL AST (15-37) U/L ALT (12-78) U/L Alkaline Phosphatase (46-116) U/L C-Reactive Protein (0.0-0.3) mg/dL Total Protein (6.4-8.2) g/dL Albumin (3.4-5.0) g/dL Globulin (2.3-3.5) g/dL Albumin/Globulin Ratio (1.2-2.2) Urine Color Yellow (YELLOW) Urine Appearance Clear (CLEAR) Urine pH 5.0 (5.0-8.0) Ur Specific [place] >= 1.030 (1.008-1.030) Urine Protein >=300 H (NEGATIVE) mg/dL Urine Glucose (UA) Negative (NEGATIVE) mg/dL Urine Ketones Negative (NEGATIVE) mg/dL Urine Occult Blood Trace-intact H (NEGATIVE) Urine Nitrite Negative (NEGATIVE) Urine Bilirubin Negative (NEGATIVE) Urine Urobilinogen 0.2 (0.2-1.0) EU/dL Ur Leukocyte Esterase Negative (NEGATIVE) Urine RBC 0-5 (0-5) Urine WBC 0-5 (0-5) Ur Epithelial Cells Few Amorphous Sediment Not seen Urine Bacteria Few Urine Mucus Not seen Urine Other Meds: Medications Generic Name Dose Route Start Last Admin Trade Name Alida PRN Reason Stop Dose Admin Sodium Chloride 10 ml 03/17/21 00:47 03/17/21 01:03 Sodium Chloride 0.9% 10 Ml Syringe FLUSH 10 ml ASDIRECTED PRN Administration Keep Vein Open Discontinued Medications Generic Name Dose Route Start Last Admin Trade Name Frelyle PRN Reason Stop Dose Admin Hydromorphone HCl 1 mg 03/17/21 00:47 03/17/21 01:03 Hydromorphone 1 Mg/Ml Syringe IVPUSH 03/17/21 00:48 1 mg ONETIME ONE Administration Hydromorphone HCl 0.5 mg 03/17/21 01:49 03/17/21 01:55 Hydromorphone 0.5 Mg/0.5 Ml Syringe IVPUSH 03/17/21 01:50 0.5 mg ONETIME ONE Administration Hydromorphone HCl 1 mg 03/17/21 02:45 03/17/21 02:50 Hydromorphone 1 Mg/Ml Syringe IVPUSH 03/17/21 02:46 1 mg ONETIME ONE Administration Sodium Chloride 78 mls @ 3.5 mls/sec 03/17/21 02:23 03/17/21 02:33 Normal Saline IV 03/17/21 02:24 3.5 mls/sec ASDIRECTED STA Administration Iopamidol 100 ml 03/17/21 02:22 03/17/21 02:33 Iopamidol 612 Mg/Ml 100 Ml Bottle IV 03/17/21 02:23 100 ml . DIRECTED STA Administration Ketorolac Tromethamine 15 mg 03/17/21 04:22 03/17/21 04:43 Ketorolac 30 Mg/Ml Sdv IVPUSH 03/17/21 04:23 15 mg ONETIME ONE Administration Ondansetron HCl 4 mg 03/17/21 01:09 03/17/21 01:18 Ondansetron 4 Mg/2 Ml Sdv IVPUSH 03/17/21 01:10 4 mg ONETIME ONE Administration - Radiology Interpretation Free Text/Narrative:: I reviewed the two-view x-ray of the abdomen showing several air-fluid levels in the colon without evidence of any small bowel obstruction. I reviewed the images of the CT of the abdomen and pelvis with contrast as well as the report. The report is as follows: FINDINGS: There is continued mild left hydronephrosis and mild left hydroureter extending to the left UVJ. There is no sign of distal ureteral calculus or mass to produce the hydronephrosis, so there may be a structure of the UVJ. Alternatively, a radial lucent obstruction such as a sloughed papilla could produce this a ppearance. There is no change in the nonobstructive 2 millimeter calculus in the lower pole of the left kidney. There is no sign of any additional renal or ureteral calculi on either side. Again seen is the exophytic 1.4 centimeter cyst arising from the anterior upper pole of the right kidney. In the abdomen, the liver, pancreas, and adrenals are normal in appearance. Incidental note is made of stable small calcified splenic granulomas in the otherwise normal spleen. The kidneys are normal in appearance. The gallbladder is normal in appearance. The abdominal aorta is normal in caliber with no sign of dilatation. There is no sign of retroperitoneal mass or adenopathy. The stomach, loops of small bowel, and right colon in the abdomen are normal in appearance. There is stable mild diverticulosis of the descending colon with no sign of diverticulitis. In the pelvis, the appendix is normal in appearance with no sign of inflammatory process. There is stable moderate sigmoid diverticulosis without evidence of diverticulitis. The loops of small bowel and colon in the pelvis are otherwise normal in appearance. Again seen are changes of prostatectomy. Surgical clips are again seen in the prostate bed and along the lateral pelvic lara from lymph node dissection. The urinary bladder is normal in appearance. There is no sign of pelvic or inguinal mass or adenopathy. There is a stable small fat containing left inguinal hernia. There is no sign of free air or free fluid in the abdomen or pelvis. The lung bases are clear. There is stable minimal anterior subluxation of L4 on L5 and of L5 on S1. There is stable moderate L2-3 disc degenerative disease. IMPRESSION: Continued mild left hydronephrosis and left hydroureter extending to the UVJ, without obstructing calculus or mass. The persistent hydronephrosis could be the result of a stricture or from a radiolucent lesion such as a sloughed papilla. CT of the abdomen show stable mild nonobstructive nephrolithiasis on the left. Stable mild diverticulosis of the descending colon with no sign of diverticulitis. CT of the pelvis shows stable moderate sigmoid diverticulosis with no sign of diverticulitis. Stable appearance status post prostatectomy. Please note that all CT scans at this facility use dose modulation, iterative reconstruction, and/or weight-based dosing when appropriate to reduce radiation dose to as low as reasonably achievable. Dictated by Esau Armstrong MD @ 03/17/2021 3:44:54 AM - Re-Assessments/Exams Free Text/Narrative Re-Assessment/Exam: 03/17/21 02:38 reviewed Jose Luis's labs showing a leukocyte count of 12.2 which is down from 14.4 on 03/13/2021. His hemoglobin is 8.5 which is up from 8.3 on 03/13/2021, and a platelet count of 555,000. His basic metabolic profile is normal except for a potassium of 3.6 and a glucose of 164. His C-reactive protein is mildly elevated at 0.75 but his lactate is up to 1.9. His urinalysis was negative. With a recurring symptoms, I am a little concerned that this may be a smoldering ischemic bowel in the area of his radiation associated proctitis. Both previous CT scans done in the last month were noncontrast CTs so I believe we should do a contrast CT of the abdomen and pelvis to see if there is compromising blood flow in the mesentery. This may be complicated by the patient's fluctuating hemoglobin between 7.4 and 8.5. I certainly believe when he was here on 03/12/2021 he did pass a renal stone with the dilation of his ureter on the left and left-sided renal colic, however, I would not anticipate that this is continuing to be the problem. 03/17/21 04:[address] reveals the patient has an obstructive uropathy on the left side causing hydroureter and hydronephrosis. 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 The patient has been increasing his fluid intake per my recommendation after the recent passage of a stone, however, this may be exacerbating his renal colic so advised him to decrease his oral intake to see if this improves the situation. I did discuss the case with Dr. Salinas, urologist at [facility] who recommends the patient be scheduled as an outpatient and follow-up for evaluation for either ureteral stent or nephrostomy tube. The patient is not having any fever or chills, significantly elevated white count or indication of a urinary tract infection so there is no need for emergent intervention. I did put a consult through for urology here at the [facility] or in [place] which ever is sooner. In the meantime, we will try to get the patient's pain under control with a small amount of Toradol as the Dilaudid 2.5 mg IV has not done anything to reduce his pain but instead is made him a little confused. His creatinine is only 1.0 at this time so should be safe to do the Toradol for 1 dose. 03/17/21 05:15 Toradol did do the trick so we will give him a prescription for a small amount of 10 mg Toradol tablets to use for severe pain 7-10 and use sparingly. This time, Jose Luis is suitable for discharge home. Departure - Departure Time of Disposition: 05:16 Disposition: Home, Self-Care 01 Clinical Impression: Obstructive uropathy, Renal colic on left side, Hydronephrosis of left kidney, Hydroureter on left - Discharge Information Prescriptions: Ketorolac [Toradol] 10 mg PO Q6H PRN #20 tab PRN Reason: Pain (Severe 7-10) Instructions: Hydronephrosis, Renal Colic, [id number] Referrals: Norman Lamb MD [Primary Care Provider] - Forms: ED Department Discharge Care Plan Goals: I have placed a consult for you to be seen by [facility] urology either at [place] or [facility]. In addition I have a prescription for you for Toradol to fill this morning you may use 1 tablet up to 3 times a day for severe pain 7- 10 intensity. Please take with a small amount of food as to not irritate the stomach. Sepsis Event Note (ED) - Evaluation Sepsis Screening Result: No Definite Risk - Focused Exam Vital Signs: Vital Signs Temp Pulse Resp BP Pulse Ox 03/17/21 00:48 36.6 C 69 16 158/56 H 98 - Problem List & Annotations (1) Renal colic on left side SNOMED Code(s): 8669105 Code(s): N23 - UNSPECIFIED RENAL COLIC Status: Acute Priority: High Current Visit: Yes (2) Hydronephrosis of left kidney SNOMED Code(s): 42113080 Code(s): N13.30 - UNSPECIFIED HYDRONEPHROSIS Status: Acute Priority: High Current Visit: Yes (3) Left nephrolithiasis SNOMED Code(s): 99842015 Code(s): N20.0 - CALCULUS OF KIDNEY Status: Acute Priority: High Current Visit: No (4) Obstructive uropathy SNOMED Code(s): 9411529 Code(s): N13.9 - OBSTRUCTIVE AND REFLUX UROPATHY, UNSPECIFIED Status: Acute Priority: High Current Visit: Yes (5) Hydroureter on left SNOMED Code(s): 05633197 Code(s): N13.4 - HYDROURETER Status: Acute Priority: High Current Visit : Yes - Problem List Review Problem List Initiated/Reviewed/Updated: Yes - My Orders Last 24 Hours: My Active Orders 03/17/21 00:47 Sodium Chloride 0.9% [Saline Flush] 10 ml FLUSH ASDIRECTED PRN Saline Lock Insert [OM.PC] Routine 03/17/21 01:04 Abdomen 2V AP Flat Upright [CR] Stat - Assessment/Plan Last 24 Hours: My Active Orders 03/17/21 00:47 Sodium Chloride 0.9% [Saline Flush] 10 ml FLUSH ASDIRECTED PRN Saline Lock Insert [OM.PC] Routine 03/17/21 01:04 Abdomen 2V AP Flat Upright [CR] Stat
[2021-03-17] MEDS ORDERED: Ondansetron 4 MG/2 ML SDV IVPUSH ONE (01:09)
[2021-03-17] MEDS ORDERED: HYDROmorphone 0.5 MG/0.5 ML Syringe IVPUSH ONE (01:49)
[2021-03-17] MEDS ORDERED: Iopamidol 612 MG/ML 100 ML Bottle IV STA (02:22)
--- NOTE | 2021-03-17 03:46 | CRLCT ---
For Patients: As a result of the Century Cures Act, medical imaging exams and procedure reports are released immediately into your electronic medical record. You may view this report before your referring provider. If you have questions, please contact your health care provider. INDICATION: Recurrent severe left lower quadrant pain. COMPARISON: 03/13/2021 TECHNIQUE: CT examination of the abdomen and pelvis was performed with the uneventful intravenous administration of 100 cc of Isovue-300 while 2 mm thick axial sections were obtained from the lung bases through the pubic symphysis. Oral contrast was not administered. Please note that all CT scans at this facility use dose modulation, iterative reconstruction, and/or weight-based dosing when appropriate to reduce radiation dose to as low as reasonably achievable. FINDINGS: There is continued mild left hydronephrosis and mild left hydroureter extending to the left UVJ. There is no sign of distal ureteral calculus or mass to produce the hydronephrosis, so there may be a structure of the UVJ. Alternatively, a radial lucent obstruction such as a sloughed papilla could produce this appearance. There is no change in the nonobstructive 2 millimeter calculus in the lower pole of the left kidney. There is no sign of any additional renal or ureteral calculi on either side. Again seen is the exophytic 1.4 centimeter cyst arising from the anterior upper pole of the right kidney. In the abdomen, the liver, pancreas, and adrenals are normal in appearance. Incidental note is made of stable small calcified splenic granulomas in the otherwise normal spleen. The kidneys are normal in appearance. The gallbladder is normal in appearance. The abdominal aorta is normal in caliber with no sign of dilatation. There is no sign of retroperitoneal mass or adenopathy. The stomach, loops of small bowel, and right colon in the abdomen are normal in appearance. There is stable mild diverticulosis of the descending colon with no sign of diverticulitis. In the pelvis, the appendix is normal in appearance with no sign of inflammatory process. There is stable moderate sigmoid diverticulosis without evidence of diverticulitis. The loops of small bowel and colon in the pelvis are otherwise normal in appearance. Again seen are changes of prostatectomy. Surgical clips are again seen in the prostate bed and along the lateral pelvic lara from lymph node dissection. The urinary bladder is normal in appearance. There is no sign of pelvic or inguinal mass or adenopathy. There is a stable small fat containing left inguinal hernia. There is no sign of free air or free fluid in the abdomen or pelvis. The lung bases are clear. There is stable minimal anterior subluxation of L4 on L5 and of L5 on S1. There is stable moderate L2-3 disc degenerative disease. IMPRESSION: Continued mild left hydronephrosis and left hydroureter extending to the UVJ, without obstructing calculus or mass. The persistent hydronephrosis could be the result of a stricture or from a radiolucent lesion such as a sloughed papilla. CT of the abdomen show stable mild nonobstructive nephrolithiasis on the left. Stable mild diverticulosis of the descending colon with no sign of diverticulitis. CT of the pelvis shows stable moderate sigmoid diverticulosis with no sign of diverticulitis. Stable appearance status post prostatectomy. Please note that all CT scans at this facility use dose modulation, iterative reconstruction, and/or weight-based dosing when appropriate to reduce radiation dose to as low as reasonably achievable. Dictated by Esau Armstrong MD @ 03/17/2021 3:44:54 AM (Electronically Signed)
[2021-03-17] MEDS ORDERED: Ketorolac 30 MG/ML SDV IVPUSH ONE (04:22)
--- NOTE | 2021-03-17 09:01 | CR ---
Abdomen 2V AP Flat Upright CLINICAL HISTORY: Left lower quadrant pain and diarrhea FINDINGS: The small intestinal configuration is nonacute. There is moderate retained feces in the right colon. No free air is seen. No stones are identified. There is been previous pelvic surgery IMPRESSION: Nonacute intestinal gas pattern Fecal retention
== END 2021-03-17 05:28 | disposition home or self-care (01) ==
LOC: JP.ED 00:33
DX: N13.2 Hydronephrosis with renal and ureteral calculous obstruction (principal); I25.10 Atherosclerotic heart disease of native coronary artery without angina pectoris; E78.00 Pure hypercholesterolemia, unspecified; I10 Essential (primary) hypertension; I25.2 Old myocardial infarction; K21.9 Gastro-esophageal reflux disease without esophagitis; M19.90 Unspecified osteoarthritis, unspecified site; E11.9 Type 2 diabetes mellitus without complications; Z87.891 Personal history of nicotine dependence; Z91.048 Other nonmedicinal substance allergy status; Z79.82 Long term (current) use of aspirin; Z79.4 Long term (current) use of insulin; Z79.899 Other long term (current) drug therapy
CPT/HCPCS: 36415; 74019; 74177; 80053; 81001; 83605; 85025; 85651; 86140; 96374; 96375; 96376; 99284; J1170; J1885; J2405; Q9967

== ENCOUNTER 2021-04-20 12:11 | Emergency (ER) | payer MEDICARE, OTHER ==
--- NOTE | 2021-04-20 13:33 | EDM.PDOC ---
ED HPI GENERAL MEDICAL PROBLEM - General Chief Complaint: General Stated Complaint: TREMMERS Time Seen by Provider: 04/20/21 13:00 Source of Information: Reports: Patient, Family History Limitations: Reports: No Limitations - History of Present Illness INITIAL COMMENTS - FREE TEXT/NARRATIVE: 81-year-old male who has a left ureteral stent that is due to be removed on , feels like he has "aged 20 years" in the last 2 days. He has become weak, this morning he had tremors and generalized malaise. No significant pain complaints, no shortness of breath or chest pain. He does have a chronic blood loss that they suspect is GI and he is concerned about his hemoglobin. He does not have a cough or shortness of breath. Onset: Sudden (Malaise has been ongoing for 2 days, chills developed suddenly this morning) Associated Symptoms: Reports: Fever/Chills, Loss of Appetite, Malaise, Weakness. Denies: Confusion, Chest Pain, Cough, Headaches, Shortness of Breath - Related Data Allergies Allergy/AdvReac Type Severity Reaction Status Date / Time dust mites Allergy Cannot Uncoded 03/17/21 00:37 Remember pollen Allergy Cannot Uncoded 03/17/21 00:37 Remember Home Meds: Home Meds Multivitamin with Minerals [Multiple Vitamin] 1 tab PO DAILY 06/18/13 [History] Simvastatin [Zocor] 20 mg PO DAILY 06/18/13 [History] metFORMIN [metFORMIN XR] 1,000 mg PO BID 06/18/13 [History] ramipriL [Altace] 2.5 mg PO DAILY 06/18/13 [History] Levothyroxine 137 mcg PO DAILY 06/19/13 [History] DULoxetine [Cymbalta] 20 mg PO DAILY 02/03/20 [History] Dulaglutide [Trulicity] 0.75 mg SQ ASDIRECTED 02/03/20 [History] Metoprolol Succinate 50 mg PO DAILY 02/03/20 [History] Mirtazapine 15 mg PO BEDTIME 02/03/20 [History] Omeprazole 1 tab PO DAILY 02/16/20 [History] Aspirin [Halfprin] 81 mg PO DAILY 03/02/21 [History] Insulin Degludec [Tresiba] 52 unit SUBCUT DAILY 03/02/21 [History] Ketorolac [Toradol] 10 mg PO Q6H PRN #20 tab 03/17/21 [Rx] Cefuroxime Axetil [Ceftin] 500 mg PO BID 7 Days #14 tablet 04/20/21 [Rx] Tamsulosin HCl [Flomax] 0.4 mg PO 04/20/21 [History] Past Medical History HEENT History: Reports: Hard of Hearing Cardiovascular History: Reports: CAD, High Cholesterol, Hypertension, CO Respiratory History: Reports: None Gastrointestinal History: Reports: GERD, Other (See Below) Other Gastrointestinal History: colitis Genitourinary History: Reports: Prostate Disorder Musculoskeletal History: Reports: Arthritis, Fracture Neurological History: Reports: None Endocrine/Metabolic History: Reports: Diabetes, Type II Oncologic (Cancer) History: Reports: Prostate, Thyroid - Infectious Disease History Infectious Disease History: Reports: Chicken Pox, Herpes, Measles, Mumps - Past Surgical History HEENT Surgical History: Reports: Tonsillectomy GI Surgical History: Reports: None Male Surgical History: Reports: Prostatectomy Other Male Surgeries/Procedures: 12 years ago Endocrine Surgical History: Reports: Thyroidectomy Musculoskeletal Surgical History: Reports: Shoulder Surgery Social & Family History - Tobacco Use Tobacco Use Status *Q: Never Tobacco User - Caffeine Use Caffeine Use: Reports: Soda Other Caffeine Use: diet pop X1 daily Caffeine Use Comment: one per day ED ROS GENERAL - Review of Systems Review Of Systems: See Below Constitutional: Reports: Chills, Malaise HEENT: Reports: No Symptoms Respiratory: Denies: Shortness of Breath, Cough Cardiovascular: Denies: Chest Pain, Palpitations GI/Abdominal: Reports: Abdominal Pain (Left-sided abdominal discomfort from the stent placement, he "knows it is there".) : Reports: Other (Denies dysuria) Musculoskeletal: Reports: No Symptoms Skin: Reports: Pallor Neurological: Reports: Weakness (Generalized weakness) Psychiatric: Reports: No Symptoms ED EXAM, GENERAL - Physical Exam Exam: See Below Exam Limited By: No Limitations General Appearance: Alert, No Apparent Distress Eye Exam: Bilateral Eye: Normal Inspection (Conjunctiva appear to have a normal hydration and color) Throat/Mouth: Normal Inspection Head: Atraumatic Neck: Supple, Non-Tender Respiratory/Chest: No Respiratory Distress, Rales (Extreme bibasilar posterior rales are present at the bases) Cardiovascular: Regular Rate, Rhythm, Tachycardia (Mild tachycardia), Systolic Murmur (Faint systolic murmur) GI/Abdominal: Normal Bowel Sounds, Soft, Non-Tender Extremities: Normal Inspection Neurological: Alert, Oriented, No Motor/Sensory Deficits Psychiatric: Normal Affect, Normal Mood Skin Exam: Warm, Dry Course - Vital Signs Last Recorded V/S: Last Vital Signs Temp 98.3 F 04/20/21 12:49 Pulse 127 H 04/20/21 12:49 Resp 28 H 04/20/21 12:49 BP 138/61 04/20/21 12:49 Pulse Ox 91 L 04/20/21 12:49 - Orders/Labs/Meds Orders: Active Orders 24 hr Category Date Time Status CULTURE URINE [RM] Stat Lab 04/20/21 14:05 Received Labs: Laboratory Tests 04/20/21 04/20/21 04/20/21 Range/Units 13:11 13:23 13:23 WBC 7.9 (4.5-11.0) K/uL RBC 4.33 (4.30-5.90) M/uL Hgb 8.0 L (12.0-15.0) g/dL Hct 28.1 L (40.0-54.0) % MCV 65 L (80-98) fL MCH 19 L (27-31) pg MCHC 29 L (32-36) % Plt Count 302 (150-400) K/uL Neut % (Auto) 94.9 H (36-66) % Lymph % (Auto) 2.7 L (24-44) % [place] % (Auto) 2.2 (2-6) % Eos % (Auto) 0.1 L (2-4) % Baso % (Auto) 0.1 (0-1) % Sodium 135 L (140-148) mmol/L Potassium 4.1 (3.6-5.2) mmol/L Chloride 102 (100-108) mmol/L Carbon Dioxide 24 (21-32) mmol/L Anion Gap 13.1 (5.0-14.0) mmol/L BUN 22 H (7-18) mg/dL Creatinine 1.0 (0.8-1.3) mg/dL Est Cr Clr Drug Dosing 53.25 mL/min Estimated GFR (MDRD) > 60 (>60) Glucose 165 H (74-106) mg/dL Calcium 8.4 L (8.5-10.1) mg/dL Urine Color Yellow (YELLOW) Urine Appearance Cloudy A (CLEAR) Urine pH 5.5 (5.0-8.0) Ur Specific [place] 1.020 (1.008-1.030) Urine Protein 100 H (NEGATIVE) mg/dL Urine Glucose (UA) Negative (NEGATIVE) mg/dL Urine Ketones Negative (NEGATIVE) mg/dL Urine Occult Blood Moderate H (NEGATIVE) Urine Nitrite Positive H (NEGATIVE) Urine Bilirubin Negative (NEGATIVE) Urine Urobilinogen 0.2 (0.2-1.0) EU/dL Ur Leukocyte Esterase Small H (NEGATIVE) Urine RBC 10-20 H (0-5) Urine WBC 30-40 H (0-5) Ur Epithelial Cells Not seen Amorphous Sediment Not seen Urine Bacteria Many Urine Mucus Many Meds: Medications Discontinued Medications Generic Name Dose Route Start Last Admin Trade Name Freq PRN Reason Stop Dose Admin Sodium Chloride 500 mls @ 1,000 mls/hr 04/20/21 14:00 04/20/21 14:24 Normal Saline IV 1,000 mls/hr ASDIRECTED ROSIBEL Administration Ceftriaxone Sodium 1 gm/ 50 mls @ 100 mls/hr 04/20/21 13:59 04/20/21 14:24 Sodium Chloride IV 04/20/21 14:28 100 mls/hr ONETIME ONE Administration - Re-Assessments/Exams Free Text/Narrative Re-Assessment/Exam: 04/20/21 13:33 A UA was obtained as well as a 1 view chest x-ray, CBC and CMP. 04/20/21 17:03 Chest x-ray showed no infiltrate, UA was strongly positive with positive nitrite, WBCs, many bacteria and RBCs present. A urine culture was initiated and the patient was given 1 g of IV Rocephin and 500 cc of normal saline. White count was normal, hemoglobin was 8.0 but that is stable over the last 2 months. CMP was also reassuring. He felt better after the fluids and antibiotic, he will be discharged with oral Ceftin 500 mg twice daily and will recheck on to have his stent removed as planned. Return anytime if worsening despite treatment. 04/20/21 17:04 Bladder scan was done prior to discharge which showed an empty bladder. Departure - Departure Time of Disposition: 15:36 Disposition: Home, Self-Care 01 Clinical Impression: UTI (urinary tract infection) Qualifiers: Urinary tract infection type: acute cystitis Hematuria presence: with hematuria Qualified Code(s): N30.01 - Acute cystitis with hematuria - Discharge Information Prescriptions: Cefuroxime Axetil [Ceftin] 500 mg PO BID 7 Days #14 tablet Instructions: Urinary Tract Infection, Adult, [id number] Referrals: Norman Lamb MD [Primary Care Provider] - Forms: ED Department Discharge Care Plan Goals: Take antibiotic twice daily starting tonight, at least until you have your stent removed and can discuss your situation with the urologist. Stay hydrated with fluids, and return if worsening such as persistent fever, worsening pain, vomiting the medication or other concerns. Sepsis Event Note (ED) - Evaluation Sepsis Screening Result: Possible Sepsis Risk - Focused Exam Vital Signs: Vital Signs Temp Pulse Resp BP Pulse Ox 04/20/21 12:49 98.3 F 127 H 28 H 138/61 91 L - My Orders Last 24 Hours: My Active Orders 04/20/21 14:05 CULTURE URINE [RM] Stat - Assessment/Plan Last 24 Hours: My Active Orders 04/20/21 14:05 CULTURE URINE [RM] Stat
--- NOTE | 2021-04-20 13:39 | CR ---
CHEST: Portable 04/20/2021 at 1:22 PM CLINICAL HISTORY:Chills and weakness COMPARISON:None FINDINGS: The heart size, pulmonary vascularity and hilar structures are normal. No infiltrate effusion or pneumothorax is seen. There are atherosclerotic changes in the aorta. IMPRESSION: No acute cardiopulmonary process.
[2021-04-20] MEDS ORDERED: cefTRIAXone 1 GM in Sodium Chloride 0.9% 50 ML IV ONE (13:59)
[2021-04-20] MEDS ORDERED: Sodium Chloride 0.9% 500 ML IV SCH (14:00)
== END 2021-04-20 15:53 | disposition home or self-care (01) ==
LOC: JP.ED 12:11
DX: N30.01 Acute cystitis with hematuria (principal); I25.10 Atherosclerotic heart disease of native coronary artery without angina pectoris; E78.00 Pure hypercholesterolemia, unspecified; I10 Essential (primary) hypertension; I25.2 Old myocardial infarction; E11.9 Type 2 diabetes mellitus without complications; E07.9 Disorder of thyroid, unspecified; Z91.09 Other allergy status, other than to drugs and biological substances; Z91.048 Other nonmedicinal substance allergy status; Z79.84 Long term (current) use of oral hypoglycemic drugs
CPT/HCPCS: 36415; 71045; 80048; 81001; 85025; 87086; 96365; 99284; J0696; J7030; 87088; 87186

== ENCOUNTER 2021-04-20 22:40 | Inpatient (IN) | payer MEDICARE, OTHER ==
[2021-04-20] MEDS ORDERED: Sodium Chloride 0.9% 10 ML Syringe FLUSH PRN (22:48)
--- NOTE | 2021-04-20 23:08 | EDM.PDOC ---
ED HPI GENERAL MEDICAL PROBLEM - General Chief Complaint: General Stated Complaint: weak, chills, Time Seen by Provider: 04/20/21 22:46 Source of Information: Reports: Patient History Limitations: Reports: No Limitations - History of Present Illness INITIAL COMMENTS - FREE TEXT/NARRATIVE: Jose Luis is an 81-year-old male who is well-known to me from previous visits who presents to the ED with worsening generalized fatigue, tremors, rigors, and feeling unwell. The patient was seen earlier today by Dr. Dominguez who diagnosed Jose Luis with a urinary tract infection and started him on ceftriaxone 500 mg IV and Ceftin 500 mg p.o. twice daily. The patient took his first dose of Ceftin tonight and try to go to bed, however, he started developing drenching sweats and rigors, worsening fatigue and generally feeling unwell. In addition to the urinary tract infection, the patient does have a ureteral stent in place from his visit with urology at [facility]. This was due to come out in 4 days but due to the fact that there is a foreign body in the ureter and he has a urinary tract infection now it makes him highly suspicious for sepsis. The patient is afebrile at this time but having shaking chills in the room. He is tachypneic and mildly tachycardic. - Related Data Allergies Allergy/AdvReac Type Severity Reaction Status Date / Time dust mites Allergy Cannot Uncoded 04/20/21 22:46 Remember pollen Allergy Cannot Uncoded 04/20/21 22:46 Remember Home Meds: Home Meds Multivitamin with Minerals [Multiple Vitamin] 1 tab PO DAILY 06/18/13 [History] Simvastatin [Zocor] 20 mg PO DAILY 06/18/13 [History] metFORMIN [metFORMIN XR] 1,000 mg PO BID 06/18/13 [History] ramipriL [Altace] 2.5 mg PO DAILY 06/18/13 [History] Levothyroxine 137 mcg PO DAILY 06/19/13 [History] DULoxetine [Cymbalta] 20 mg PO DAILY 02/03/20 [History] Dulaglutide [Trulicity] 0.75 mg SQ ASDIRECTED 02/03/20 [History] Metoprolol Succinate 50 mg PO DAILY 02/03/20 [History] Mirtazapine 15 mg PO BEDTIME 09/27/20 [History] Omeprazole 1 tab PO DAILY 02/16/20 [History] Aspirin [Halfprin] 81 mg PO DAILY 03/02/21 [History] Insulin Degludec [Tresiba] 52 unit SUBCUT DAILY 03/02/21 [History] Ketorolac [Toradol] 10 mg PO Q6H PRN #20 tab 03/17/21 [Rx] Cefuroxime Axetil [Ceftin] 500 mg PO BID 7 Days #14 tablet 04/20/21 [Rx] Tamsulosin HCl [Flomax] 0.4 mg PO DAILY 04/20/21 [History] Past Medical History HEENT History: Reports: Hard of Hearing Cardiovascular History: Reports: CAD, High Cholesterol, Hypertension, [place] Respiratory History: Reports: None Gastrointestinal History: Reports: GERD, Other (See Below) Other Gastrointestinal History: colitis Genitourinary History: Reports: Prostate Disorder Musculoskeletal History: Reports: Arthritis, Fracture Neurological History: Reports: None Endocrine/Metabolic History: Reports: Diabetes, Type II Oncologic (Cancer) History: Reports: Prostate, Thyroid - Infectious Disease History Infectious Disease History: Reports: Chicken Pox, Herpes, Measles, Mumps - Past Surgical History HEENT Surgical History: Reports: Tonsillectomy GI Surgical History: Reports: None Male Surgical History: Reports: Prostatectomy Other Male Surgeries/Procedures: 12 years ago Endocrine Surgical History: Reports: Thyroidectomy Musculoskeletal Surgical History: Reports: Shoulder Surgery Social & Family History - Tobacco Use Tobacco Use Status *Q: Never Tobacco User - Caffeine Use Caffeine Use: Reports: Soda Other Caffeine Use: diet pop X1 daily Caffeine Use Comment: one per day - Recreational Drug Use Recreational Drug Use: No ED ROS GENERAL - Review of Systems Review Of Systems: See Below Constitutional: Reports: Fever, Chills, Malaise, Weakness HEENT: Reports: No Symptoms Respiratory: Reports: No Symptoms Cardiovascular: Reports: No Symptoms Endocrine: Reports: Fatigue GI/Abdominal: Reports: Abdominal Pain (Ongoing issues with abdominal pain. 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.) : Reports: Dysuria Musculoskeletal: Reports: No Symptoms Skin: Reports: No Symptoms Neurological: Reports: Weakness (Generalized weakness) Psychiatric: Reports: Anxiety Hematologic/Lymphatic: Reports: Anemia (Thought to be due to GI blood loss) Immunologic: Reports: No Symptoms ED EXAM, GENERAL - Physical Exam Exam: See Below Exam Limited By: No Limitations General Appearance: Anxious, Mild Distress Eye Exam: Bilateral Eye: EOMI, PERRL Throat/Mouth: Normal Inspection, Normal Oropharynx, Normal Voice, No Airway Compromise Head: Atraumatic, Normocephalic Neck: Normal Inspection Respiratory/Chest: No Respiratory Distress, Lungs Clear, Normal Breath Sounds Cardiovascular: Normal Peripheral Pulses, Regular Rate, Rhythm, No Murmur, Tachycardia GI/Abdominal: Normal Bowel Sounds, Soft, Non-Tender. No: Guarding, Rebound Neurological: Alert, Oriented, Normal Cognition, No Motor/Sensory Deficits Psychiatric: Normal Affect, Anxious Skin Exam: Warm, Dry Course - Vital Signs Last Recorded V/S: Last Vital Signs Temp 36.5 C 04/20/21 22:43 Pulse 96 04/20/21 22:43 Resp 26 H 04/20/21 22:43 BP 138/91 H 04/20/21 22:43 Pulse Ox 96 04/20/21 22:43 - Orders/Labs/Meds Orders: Active Orders 24 hr Category Date Time Status Blood Pressure Mgt: Sepsis [RC] Q15MX2 Care 04/21/21 00:13 Active Chest 1V Frontal [CR] Stat Exams 04/21/21 00:10 Taken CULTURE BLOOD [BC] Urgent Lab 04/20/21 23:00 Received CULTURE BLOOD [BC] Urgent Lab 04/20/21 23:00 Received CULTURE URINE [RM] Stat Lab 04/20/21 13:00 Received Sodium Chloride 0.9% [Saline Flush] Med 04/20/21 22:48 Active 10 ml FLUSH ASDIRECTED PRN Sodium Chloride 0.9% [Saline Flush] Med 04/21/21 00:10 Active 10 ml FLUSH ASDIRECTED PRN Vancomycin 1 gm Med 04/21/21 00:10 Active Sodium Chloride 0.9% [Normal Saline] 250 ml IV STAT Blood Culture x2 Reflex Set [OM.PC] Urgent Oth 04/20/21 22:55 Ordered Isolation [COMM] Stat Oth 04/20/21 22:49 Ordered Saline Lock Insert [OM.PC] Routine Oth 04/20/21 22:48 Ordered Saline Lock Insert [OM.PC] Stat Oth 04/21/21 00:12 Ordered Severe Sepsis Onset Time [OM.PC] Stat Oth 04/21/21 00:12 Ordered Medication Orders Vancomycin HCl 1 gm/ Sodium (Chloride) 250 mls @ 167 mls/hr IV STAT ONE Stop: 04/21/21 01:39 Sodium Chloride (Sodium Chloride 0.9% 10 Ml Syringe) 10 ml FLUSH ASDIRECTED PRN PRN Reason: Keep Vein Open Last Admin: 04/20/21 23:04 Dose: 10 ml Documented by: ALLIE Sodium Chloride (Sodium Chloride 0.9% 10 Ml Syringe) 10 ml FLUSH ASDIRECTED PRN PRN Reason: Keep Vein Open Labs: Laboratory Tests 04/20/21 04/20/21 04/20/21 Range/Units 23:00 23:00 23:00 WBC 13.4 H (4.5-11.0) K/uL RBC 4.28 L (4.30-5.90) M/uL Hgb 7.8 L (12.0-15.0) g/dL Hct 28.0 L (40.0-54.0) % MCV 65 L (80-98) fL MCH 18 L (27-31) pg MCHC 28 L (32-36) % Plt Count 298 (150-400) K/uL Neut % (Auto) 89.5 H (36-66) % Lymph % (Auto) 4.9 L (24-44) % Braxton % (Auto) 4.8 (2-6) % Eos % (Auto) 0.5 L (2-4) % Baso % (Auto) 0.3 (0-1) % Sodium 137 L (140-148) mmol/L Potassium 4.4 (3.6-5.2) mmol/L Chloride 101 (100-108) mmol/L Carbon Dioxide 22 (21-32) mmol/L Anion Gap 18.4 H (5.0-14.0) mmol/L BUN 26 H (7-18) mg/dL Creatinine 1.1 (0.8-1.3) mg/dL Est Cr Clr Drug Dosing 48.41 mL/min Estimated GFR (MDRD) > 60 (>60) Glucose 150 H (74-106) mg/dL Lactic Acid 4.3 H (0.4-2.0) mmol/L Calcium 8.2 L (8.5-10.1) mg/dL Total Bilirubin 0.8 D (0.2-1.0) mg/dL AST 50 H D (15-37) U/L ALT 46 (12-78) U/L Alkaline Phosphatase 127 H (46-116) U/L Total Protein 6.6 (6.4-8.2) g/dL Albumin 3.1 L (3.4-5.0) g/dL Globulin 3.5 (2.3-3.5) g/dL Albumin/Globulin Ratio 0.9 L (1.2-2.2) Influenza Type A RNA (NEGATIVE) RSV RNA (INAAT) (NEGATIVE) Influenza Type B RNA (NEGATIVE) SARS-CoV-2 RNA (ROSALBA) (NEGATIVE) 04/20/21 Range/Units 23:05 WBC (4.5-11.0) K/uL RBC (4.30-5.90) M/uL Hgb (12.0-15.0) g/dL Hct (40.0-54.0) % MCV (80-98) fL MCH (27-31) pg MCHC (32-36) % Plt Count (150-400) K/uL Neut % (Auto) (36-66) % Lymph % (Auto) (24-44) % Braxton % (Auto) (2-6) % Eos % (Auto) (2-4) % Baso % (Auto) (0-1) % Sodium (140-148) mmol/L Potassium (3.6-5.2) mmol/L Chloride (100-108) mmol/L Carbon Dioxide (21-32) mmol/L Anion Gap (5.0-14.0) mmol/L BUN (7-18) mg/dL Creatinine (0.8-1.3) mg/dL Est Cr Clr Drug Dosing mL/min Estimated GFR (MDRD) (>60) Glucose (74-106) mg/dL Lactic Acid (0.4-2.0) mmol/L Calcium (8.5-10.1) mg/dL Total Bilirubin (0.2-1.0) mg/dL AST (15-37) U/L ALT (12-78) U/L Alkaline Phosphatase (46-116) U/L Total Protein (6.4-8.2) g/dL Albumin (3.4-5.0) g/dL Globulin (2.3-3.5) g/dL Albumin/Globulin Ratio (1.2-2.2) Influenza Type A RNA Negative (NEGATIVE) RSV RNA (INAAT) Negative (NEGATIVE) Influenza Type B RNA Negative (NEGATIVE) SARS-CoV-2 RNA (ROSALBA) Negative (NEGATIVE) Meds: Medications Generic Name Dose Route Start Last Admin Trade Name Freq PRN Reason Stop Dose Admin Vancomycin HCl 1 gm/ Sodium 250 mls @ 167 mls/hr 04/21/21 00:10 Chloride IV 04/21/21 01:39 STAT ONE Sodium Chloride 10 ml 04/20/21 22:48 04/20/21 23:04 Sodium Chloride 0.9% 10 Ml Syringe FLUSH 10 ml ASDIRECTED PRN Administration Keep Vein Open Sodium Chloride 10 ml 04/21/21 00:10 Sodium Chloride 0.9% 10 Ml Syringe FLUSH ASDIRECTED PRN Keep Vein Open Discontinued Medications Generic Name Dose Route Start Last Admin Trade Name Freq PRN Reason Stop Dose Admin Sodium Chloride 1,000 mls @ 999 mls/hr 04/21/21 00:10 04/21/21 00:55 Normal Saline IV 04/21/21 01:10 999 mls/hr BOLUS ONE Administration Protocol Ceftriaxone Sodium 1 gm/ 50 mls @ 100 mls/hr 04/21/21 00:10 04/21/21 00:55 Sodium Chloride IV 04/21/21 00:39 100 mls/hr STAT ONE Administration Sterile Water Confirm 04/21/21 00:34 Sterile Water For Injection Administered 04/21/21 00:35 Dose 10 mls @ as directed .ROUTE .STK-MED ONE Sterile Water Confirm 04/21/21 01:00 Sterile Water For Injection Administered 04/21/21 01:01 Dose 20 mls @ as directed .ROUTE .STK-MED ONE - Radiology Interpretation Free Text/Narrative:: I reviewed the images of the CT of the abdomen and pelvis without contrast as well as the report. The report is as follows: Findings: Left ureteral stent is in place. There is no hydronephrosis. Small cortical cyst arising from the posterior left lower kidney is unchanged. A small cortical cyst is also noted arising from the anterior upper right kidney. There is no nephrolithiasis. There is moderate the urinary bladder wall thickening with surrounding fat stranding, suspicious for cystitis. There is unremarkable noncontrast appearance of the liver, gallbladder, spleen, pancreas, adrenal glands, and kidneys. The abdominal aorta is normal in caliber with scattered atherosclerotic calcification present. There is no abdominal or pelvic lymphadenopathy. Surgical clips are noted in the pelvis. The stomach and duodenum are unremarkable. There are no abnormally distended small bowel loops. The appendix is noninflamed. Diverticulosis is noted in the sigmoid colon. There is no colonic wall thickening or mesenteric edema. Degenerative changes are noted in the lumbar spine. There is mild bibasilar atelectasis. Impression: Urinary bladder wall thickening with surrounding edema, concerning for acute cystitis. Correlate with urinalysis. Please note that all CT scans at this facility use dose modulation, iterative reconstruction, and/or weight-based dosing when appropriate to reduce radiation dose to as low as reasonably achievable. Dictated by Dylan Pickard MD @ 04/21/2021 1:16:14 AM - Re-Assessments/Exams Free Text/Narrative Re-Assessment/Exam: 04/21/21 00:33 the patient's labs showing a significant leukocytosis at 13.4, hemoglobin of 7.8, and platelet count of 298,000. The patient's comprehensive metabolic panel shows a sodium 137, potassium 4.4, chloride of 101, bicarbonate of 22, BUN of 26 with a creatinine of 1.1 and a glucose of 150. AST, ALT, and alkaline phosphatase are normal. Venous lactate is elevated at 4.3 signifying sepsis. We initiated sepsis protocol with IV hydration and antibiotics with IV vancomycin 1 g and IV Rocephin 1 g. I discussed the case with Dr. Livingston, Urologist at [facility] who placed the ureteral stent as it appears the patient is likely uroseptic based on his work-up earlier today in the emergency room by Dr. Dominguez when he was found to have positive nitrites and leukocyte esterase with 10-20 RBCs and 30-40 WBCs. He was started on Rocephin 500 mg IV and Ceftin 500 mg twice daily but a urine culture was not obtained. Through the course of this evening the patient the patient has continued to have rigors and drenching sweats prompting him to come back in for reevaluation. Patient has had 1 dose of the Ceftin at home and despite this still presents with sepsis. Dr. Livingston stated that we should get a CT of the abdomen and pelvis to evaluate for recurrence of stone either in the kidney or ureter or any intra- abdominal changes accounting for the sepsis. She stated it this would normally require the ureteral stent to remain longer but to treat the infection as a UTI. She did not feel that this needed to be transferred over to [place] as they would not do anything different urgently. Departure - Departure Time of Disposition: 01:34 Disposition: Admitted As Inpatient 65 Clinical Impression: Blood loss anemia, Radiation induced proctitis Urinary tract infection Qualifiers: Urinary tract infection type: acute cystitis Hematuria presence: with hematuria Qualified Code(s): N30.01 - Acute cystitis with hematuria Sepsis Qualifiers: Sepsis type: sepsis due to unspecified organism Sepsis acute organ dysfunction status: without acute organ dysfunction Qualified Code(s): A41.9 - Sepsis, unspecified organism - Discharge Information Referrals: Norman Lamb MD [Primary Care Provider] - Forms: ED Department Discharge Sepsis Event Note (ED) - Evaluation Sepsis Screening Result: No Definite Risk - Focused Exam Vital Signs: Vital Signs Temp Pulse Resp BP Pulse Ox 04/20/21 22:43 36.5 C 96 26 H 138/91 H 96 - Problem List & Annotations (1) UTI (urinary tract infection) SNOMED Code(s): 36079011 Code(s): N39.0 - URINARY TRACT INFECTION, SITE NOT SPECIFIED Status: Acute Priority: High Current Visit: Yes Qualifiers: Urinary tract infection type: acute cystitis Hematuria presence: with hematuria Qualified Code(s): N30.01 - Acute cystitis with hematuria (2) Sepsis SNOMED Code(s): 53247902 Code(s): A41.9 - SEPSIS, UNSPECIFIED ORGANISM Status: Acute Priority: High Current Visit: Yes Qualifiers: Sepsis type: sepsis due to unspecified organism Sepsis acute organ dysfunction status: without acute organ dysfunction Qualified Code(s): A41.9 - Sepsis, unspecified organism - Problem List Review Problem List Initiated/Reviewed/Updated: Yes - My Orders Last 24 Hours: My Active Orders 04/20/21 13:00 CULTURE URINE [RM] Stat 04/20/21 22:48 Sodium Chloride 0.9% [Saline Flush] 10 ml FLUSH ASDIRECTED PRN Saline Lock Insert [OM.PC] Routine 04/20/21 22:49 Isolation [COMM] Stat 04/20/21 22:55 Blood Culture x2 Reflex Set [OM.PC] Urgent 04/20/21 23:00 CULTURE BLOOD [BC] Urgent CULTURE BLOOD [BC] Urgent 04/21/21 00:10 Chest 1V Frontal [CR] Stat Sodium Chloride 0.9% [Saline Flush] 10 ml FLUSH ASDIRECTED PRN Vancomycin 1 gm Sodium Chloride 0.9% [Normal Saline] 250 ml IV STAT 04/21/21 00:12 Saline Lock Insert [OM.PC] Stat Severe Sepsis Onset Time [OM.PC] Stat 04/21/21 00:13 Blood Pressure Mgt: Sepsis [RC] Q15MX2 - Assessment/Plan Last 24 Hours: My Active Orders 04/20/21 13:00 CULTURE URINE [RM] Stat 04/20/21 22:48 Sodium Chloride 0.9% [Saline Flush] 10 ml FLUSH ASDIRECTED PRN Saline Lock Insert [OM.PC] Routine 04/20/21 22:49 Isolation [COMM] Stat 04/20/21 22:55 Blood Culture x2 Reflex Set [OM.PC] Urgent 04/20/21 23:00 CULTURE BLOOD [BC] Urgent CULTURE BLOOD [BC] Urgent 04/21/21 00:10 Chest 1V Frontal [CR] Stat Sodium Chloride 0.9% [Saline Flush] 10 ml FLUSH ASDIRECTED PRN Vancomycin 1 gm Sodium Chloride 0.9% [Normal Saline] 250 ml IV STAT 04/21/21 00:12 Saline Lock Insert [OM.PC] Stat Severe Sepsis Onset Time [OM.PC] Stat 04/21/21 00:13 Blood Pressure Mgt: Sepsis [RC] Q15MX2
[2021-04-20 23:49] LABS: CORONAVIRUS COVID-19 NAA NEGATIVE (NEGATIVE)
[2021-04-21] MEDS ORDERED: cefTRIAXone 1 GM in Sodium Chloride 0.9% 50 ML IV ONE (00:10)
[2021-04-21] MEDS ORDERED: Sodium Chloride 0.9% 10 ML Syringe FLUSH PRN (00:10)
[2021-04-21] MEDS ORDERED: Sodium Chloride 0.9% 1,000 ML IV ONE (00:10)
[2021-04-21] MEDS ORDERED: Water For Injection, Sterile 10 ML ONE (00:34)
[2021-04-21] MEDS ORDERED: Water For Injection, Sterile 20 ML ONE (01:00)
--- NOTE | 2021-04-21 01:16 | CRLCT ---
For Patients: As a result of the Century Cures Act, medical imaging exams and procedure reports are released immediately into your electronic medical record. You may view this report before your referring provider. If you have questions, please contact your health care provider. Indication: Sepsis Technique: Nonenhanced axial CT imaging through the abdomen and pelvis. Sagittal and coronal reconstructions are provided. Comparison: CT abdomen pelvis with contrast 03/17/2021 Findings: Left ureteral stent is in place. There is no hydronephrosis. Small cortical cyst arising from the posterior left lower kidney is unchanged. A small cortical cyst is also noted arising from the anterior upper right kidney. There is no nephrolithiasis. There is moderate the urinary bladder wall thickening with surrounding fat stranding, suspicious for cystitis. There is unremarkable noncontrast appearance of the liver, gallbladder, spleen, pancreas, adrenal glands, and kidneys. The abdominal aorta is normal in caliber with scattered atherosclerotic calcification present. There is no abdominal or pelvic lymphadenopathy. Surgical clips are noted in the pelvis. The stomach and duodenum are unremarkable. There are no abnormally distended small bowel loops. The appendix is noninflamed. Diverticulosis is noted in the sigmoid colon. There is no colonic wall thickening or mesenteric edema. Degenerative changes are noted in the lumbar spine. There is mild bibasilar atelectasis. Impression: Urinary bladder wall thickening with surrounding edema, concerning for acute cystitis. Correlate with urinalysis. Please note that all CT scans at this facility use dose modulation, iterative reconstruction, and/or weight-based dosing when appropriate to reduce radiation dose to as low as reasonably achievable. Dictated by Dylan Pickard MD @ 04/21/2021 1:16:14 AM (Electronically Signed)
[2021-04-21] MEDS ORDERED: Cefepime 2 GM in Sodium Chloride 0.9% 50 ML IV ONE (01:25)
[2021-04-21] MEDS ORDERED: Cefepime 1 GM in Sodium Chloride 0.9% 50 ML IV SCH (01:45)
--- NOTE | 2021-04-21 03:04 | PCM.HP.2 ---
H&P History of Present Illness - General Date of Service: 04/20/21 Admit Problem/Dx: Admission Diagnosis/Problem Admission Diagnosis/Problem Urosepsis Source of Information: Patient, Family (), Provider, RN History Limitations: Reports: Other (hard of hearing) - History of Present Illness Initial Comments - Free Text/Narative: chief complaint: urosepsis Copy from ER visit 04/20/2021 Eduard is an 81-year-old male who is well-known to me from previous visits who presents to the ED with worsening generalized fatigue, tremors, rigors, and feeling unwell. The patient was seen earlier today by Dr. Dominguez who diagnosed Eduard with a urinary tract infection and started him on ceftriaxone 500 mg IV and Ceftin 500 mg p.o. twice daily. The patient took his first dose o f Ceftin tonight and try to go to bed, however, he started developing drenching sweats and rigors, worsening fatigue and generally feeling unwell. In addition to the urinary tract infection, the patient does have a ureteral stent in place from his visit with urology at [facility]. This was due to come out in 4 days but due to the fact that there is a foreign body in the ureter and he has a urinary tract infection now it makes him highly suspicious for sepsis. The patient is afebrile at this time but having shaking chills in the room. He is tachypneic and mildly tachycardic. Onset of Symptoms: Reports: Gradual Duration of Symptoms: Reports: Week(s): (reports 7 ER visits in 2 months), Getting Worse Quality: Reports: Ache Improves with: Reports: None Worsens with: Reports: None Context: Reports: Other Associated Symptoms: Reports: Fever/Chills, Loss of Appetite, Malaise, Nausea/Vomiting, Weakness - Related Data Allergies/Adverse Reactions: Allergies Allergy/AdvReac Type Severity Reaction Status Date / Time dust mites Allergy Cannot Uncoded 04/20/21 22:46 Remember pollen Allergy Cannot Uncoded 04/20/21 22:46 Remember Home Medications: Home Meds Multivitamin with Minerals [Multiple Vitamin] 1 tab PO DAILY 06/18/13 [History] Simvastatin [Zocor] 20 mg PO DAILY 06/18/13 [History] metFORMIN [metFORMIN XR] 1,000 mg PO BID 06/18/13 [History] ramipriL [Altace] 2.5 mg PO DAILY 06/18/13 [History] Levothyroxine 137 mcg PO DAILY 06/19/13 [History] DULoxetine [Cymbalta] 20 mg PO DAILY 02/03/20 [History] Dulaglutide [Trulicity] 0.75 mg SQ ASDIRECTED 02/03/20 [History] Metoprolol Succinate 50 mg PO DAILY 02/03/20 [History] Mirtazapine 15 mg PO BEDTIME 02/03/20 [History] Omeprazole 1 tab PO DAILY 02/16/20 [History] Aspirin [Halfprin] 81 mg PO DAILY 03/02/21 [History] Insulin Degludec [Tresiba] 52 unit SUBCUT DAILY 03/02/21 [History] Ketorolac [Toradol] 10 mg PO Q6H PRN #20 tab 03/17/21 [Rx] Cefuroxime Axetil [Ceftin] 500 mg PO BID 7 Days #14 tablet 04/20/21 [Rx] Tamsulosin HCl [Flomax] 0.4 mg PO DAILY 04/20/21 [History] Past Medical History HEENT History: Reports: Hard of Hearing Cardiovascular History: Reports: CAD, High Cholesterol, Hypertension, [place] Respiratory History: Reports: None Gastrointestinal History: Reports: GERD, Other (See Below) Other Gastrointestinal History: colitis Genitourinary History: Reports: Prostate Disorder Musculoskeletal History: Reports: Arthritis, Fracture Neurological History: Reports: None Endocrine/Metabolic History: Reports: Diabetes, Type II Oncologic (Cancer) History: Reports: Prostate, Thyroid - Infectious Disease History Infectious Disease History: Reports: Chicken Pox, Herpes, Measles, Mumps - Past Surgical History HEENT Surgical History: Reports: Tonsillectomy GI Surgical History: Reports: None Male Surgical History: Reports: Prostatectomy Other Male Surgeries/Procedures: 12 years ago Endocrine Surgical History: Reports: Thyroidectomy Musculoskeletal Surgical History: Reports: Shoulder Surgery Social & Family History - Tobacco Use Tobacco Use Status *Q: Never Tobacco User - Caffeine Use Caffeine Use: Reports: Soda Other Caffeine Use: diet pop X1 daily Caffeine Use Comment: one per day - Recreational Drug Use Recreational Drug Use: No - Living Situation & Occupation Living situation: Reports: Occupation: Retired (Lives with , no children, both are retired [employer].) H&P Review of Systems - Review of Systems: Review Of Systems: See Below General: Reports: Fever, Chills, Malaise, Weakness, Fatigue, Diaphoresis, Decreased Appetite HEENT: Reports: Glasses, Hearing Changes (hard of hearing) Pulmonary: Reports: No Symptoms Cardiovascular: Reports: No Symptoms Gastrointestinal: Reports: Abdominal Pain Genitourinary: Reports: Dysuria, Frequency, Pain (muscle spasms), Urgency, Hematuria Musculoskeletal: Reports: Back Pain Skin: Reports: No Symptoms Psychiatric: Reports: No Symptoms Neurological: Reports: No Symptoms Hematologic/Lymphatic: Reports: Anemia (chronic anemia) Immunologic: Reports: No Symptoms Exam - Exam Exam: See Below - Vital Signs Vital Signs: Last Vital Signs Temp 97.7 F 04/20/21 22:43 Pulse 92 04/21/21 02:18 Resp 26 H 04/20/21 22:43 BP 113/62 04/21/21 02:18 Pulse Ox 96 04/20/21 22:43 Weight: 180 lb - Exam Quality Assessment: DVT Prophylaxis General: Alert, Oriented, Cooperative, Mild Distress HEENT: PERRLA, Conjunctiva Clear, EOMI, Hearing Intact, Nares Patent, Glasses, Other (mouth is dry) Neck: Supple, Trachea Midline Lungs: Clear to Auscultation, Normal Respiratory Effort Cardiovascular: Regular Rate, Regular Rhythm, Normal S1, Normal S2 GI/Abdominal Exam: Normal Bowel Sounds, Soft, No Distention, Tender (low ) (Male) Exam: Deferred Rectal (Males) Exam: Deferred Back Exam: Normal Inspection, Full Range of Motion, NT Extremities: Normal Inspection, Normal Range of Motion, Non-Tender, No Pedal Edema, Normal Capillary Refill Peripheral Pulses: 2+: Brachial (L), Brachial (R), Dorsalis Pedis (L), Dorsalis Pedis (R) Skin: Warm, Dry, Intact Neurological: Cranial Nerves Intact, Reflexes Equal Bilateral Neuro Extensive - Mental Status: Alert, Oriented x3, Normal Mood/Affect, Normal Cognition Neuro Extensive - Motor, Sensory, Reflexes: CN II-XII Intact, Normal Gait, Normal Reflexes Psychiatric: Alert, Normal Affect, Normal Mood - Patient Data Lab Results Last 24 hrs: Laboratory Results - last 24 hr 04/20/21 04/20/21 04/20/21 Range/Units 23:00 23:00 23:00 WBC 13.4 H (4.5-11.0) K/uL RBC 4.28 L (4.30-5.90) M/uL Hgb 7.8 L (12.0-15.0) g/dL Hct 28.0 L (40.0-54.0) % MCV 65 L (80-98) fL MCH 18 L (27-31) pg MCHC 28 L (32-36) % Plt Count 298 (150-400) K/uL Neut % (Auto) 89.5 H (36-66) % Lymph % (Auto) 4.9 L (24-44) % Cowley % (Auto) 4.8 (2-6) % Eos % (Auto) 0.5 L (2-4) % Baso % (Auto) 0.3 (0-1) % Sodium 137 L (140-148) mmol/L Potassium 4.4 (3.6-5.2) mmol/L Chloride 101 (100-108) mmol/L Carbon Dioxide 22 (21-32) mmol/L Anion Gap 18.4 H (5.0-14.0) mmol/L BUN 26 H (7-18) mg/dL Creatinine 1.1 (0.8-1.3) mg/dL Est Cr Clr Drug Dosing 48.41 mL/min Estimated GFR (MDRD) > 60 (>60) Glucose 150 H (74-106) mg/dL Lactic Acid 4.3 H (0.4-2.0) mmol/L Calcium 8.2 L (8.5-10.1) mg/dL Total Bilirubin 0.8 D (0.2-1.0) mg/dL AST 50 H D (15-37) U/L ALT 46 (12-78) U/L Alkaline Phosphatase 127 H (46-116) U/L Total Protein 6.6 (6.4-8.2) g/dL Albumin 3.1 L (3.4-5.0) g/dL Globulin 3.5 (2.3-3.5) g/dL Albumin/Globulin Ratio 0.9 L (1.2-2.2) Influenza Type A RNA (NEGATIVE) RSV RNA (INAAT) (NEGATIVE) Influenza Type B RNA (NEGATIVE) SARS-CoV-2 RNA (ROSALBA) (NEGATIVE) 04/20/21 Range/Units 23:05 WBC (4.5-11.0) K/uL RBC (4.30-5.90) M/uL Hgb (12.0-15.0) g/dL Hct (40.0-54.0) % MCV (80-98) fL MCH (27-31) pg MCHC (32-36) % Plt Count (150-400) K/uL Neut % (Auto) (36-66) % Lymph % (Auto) (24-44) % Cowley % (Auto) (2-6) % Eos % (Auto) (2-4) % Baso % (Auto) (0-1) % Sodium (140-148) mmol/L Potassium (3.6-5.2) mmol/L Chloride (100-108) mmol/L Carbon Dioxide (21-32) mmol/L Anion Gap (5.0-14.0) mmol/L BUN (7-18) mg/dL Creatinine (0.8-1.3) mg/dL Est Cr Clr Drug Dosing mL/min Estimated GFR (MDRD) (>60) Glucose (74-106) mg/dL Lactic Acid (0.4-2.0) mmol/L Calcium (8.5-10.1) mg/dL Total Bilirubin (0.2-1.0) mg/dL AST (15-37) U/L ALT (12-78) U/L Alkaline Phosphatase (46-116) U/L Total Protein (6.4-8.2) g/dL Albumin (3.4-5.0) g/dL Globulin (2.3-3.5) g/dL Albumin/Globulin Ratio (1.2-2.2) Influenza Type A RNA Negative (NEGATIVE) RSV RNA (INAAT) Negative (NEGATIVE) Influenza Type B RNA Negative (NEGATIVE) SARS-CoV-2 RNA (ROSALBA) Negative (NEGATIVE) Result Diagrams: 04/20/21 23:00 04/20/21 23:00 Sepsis Event Note - Evaluation Sepsis Screening Result: No Definite Risk - Focused Exam Vital Signs: Vital Signs Temp Pulse Resp BP Pulse Ox 04/21/21 02:18 92 113/62 04/20/21 22:43 97.7 F 96 26 H 138/91 H 96 - Problem List (1) Sepsis SNOMED Code(s): 73502080 ICD Code: A41.9 - SEPSIS, UNSPECIFIED ORGANISM Status: Acute Priority: High Current Visit: Yes Qualifiers: Sepsis type: sepsis due to unspecified organism Sepsis acute organ dysfunction status: without acute organ dysfunction Qualified Code(s): A41.9 - Sepsis, unspecified organism (2) UTI (urinary tract infection) SNOMED Code(s): 21500192 ICD Code: N39.0 - URINARY TRACT INFECTION, SITE NOT SPECIFIED Status: Acute Priority: High Current Visit: Yes Qualifiers: Urinary tract infection type: acute cystitis Hematuria presence: with hematuria Qualified Code(s): N30.01 - Acute cystitis with hematuria (3) Hydroureter on left SNOMED Code(s): 44951057 ICD Code: N13.4 - HYDROURETER Status: Acute Priority: High Current Visit: No (4) Insomnia SNOMED Code(s): 955526041 ICD Code: G47.00 - INSOMNIA, UNSPECIFIED Status: Acute Priority: High Current Visit: Yes Qualifiers: Insomnia type: unspecified Qualified Code(s): G47.00 - Insomnia, unspecified (5) Diabetes mellitus SNOMED Code(s): 27611101 ICD Code: E11.9 - TYPE 2 DIABETES MELLITUS WITHOUT COMPLICATIONS Status: Acute Priority: High Current Visit: Yes Qualifiers: Diabetes mellitus type: type 2 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: with terminal press operator use Diabetes mellitus complication status: with circulatory complication (6) Anemia SNOMED Code(s): 618874821 ICD Code: D64.9 - ANEMIA, UNSPECIFIED Status: Acute Priority: High Current Visit: Yes Qualifiers: Anemia type: unspecified type Qualified Code(s): D64.9 - Anemia, unsp ecified Problem List Initiated/Reviewed/Updated: Yes Orders Last 24hrs: Active Orders 24 hr Category Date Time Status Patient Status Manage Transfer [TRANSFER] Routine ADT 04/21/21 02:44 Ordered Blood Pressure Mgt: Sepsis [RC] [id number] Care 04/21/21 00:13 Active Chest 1V Frontal [CR] Stat Exams 04/21/21 00:10 Taken CULTURE BLOOD [BC] Urgent Lab 04/20/21 23:00 Received CULTURE BLOOD [BC] Urgent Lab 04/20/21 23:00 Received CULTURE URINE [RM] Stat Lab 04/20/21 13:00 Received Cefepime [Maxipime] 1 gm Med 04/21/21 01:45 Active Sodium Chloride 0.9% [Normal Saline AdvBag] 50 ml IV Q12H Sodium Chloride 0.9% [Saline Flush] Med 04/20/21 22:48 Active 10 ml FLUSH ASDIRECTED PRN Sodium Chloride 0.9% [Saline Flush] Med 04/21/21 00:10 Active 10 ml FLUSH ASDIRECTED PRN Blood Culture x2 Reflex Set [OM.PC] Urgent Ot 04/20/21 22:55 Ordered Isolation [COMM] Stat Ot 04/20/21 22:49 Ordered Saline Lock Insert [OM.PC] Routine Ot 04/20/21 22:48 Ordered Saline Lock Insert [OM.PC] Stat Ot 04/21/21 00:12 Ordered Severe Sepsis Onset Time [OM.PC] Stat Ot 04/21/21 00:12 Ordered Resuscitation Status Routine Resus Stat 04/21/21 02:46 Ordered Medication Orders Cefepime HCl 1 gm/ Sodium (Chloride) 50 mls @ 100 mls/hr IV Q12H [facility] Last Admin: 04/21/21 01:49 Dose: 100 mls/hr Documented by: ALLIE Sodium Chloride (Sodium Chloride 0.9% 10 Ml Syringe) 10 ml FLUSH ASDIRECTED PRN PRN Reason: Keep Vein Open Last Admin: 04/20/21 23:04 Dose: 10 ml Documented by: CHRISTINARI Sodium Chloride (Sodium Chloride 0.9% 10 Ml Syringe) 10 ml FLUSH ASDIRECTED PRN PRN Reason: Keep Vein Open Assessment/Plan Comment:: Assessment/Plan Comment:: SEPSIS-URINARY TRACT INFECTION, CHRONIC ANEMIA, HYDROURETER ON LEFT,INSOMNIA, Diabetes type 2 ASSESSMENT AND PLAN - chief complaint: painful urination with soaking sweats and fever today, has been to the ER two times today with similar symptoms. This is a 81 year old male presents to the ER for evaluation of symptoms. Reports in the past two months has been to the ER 7 times for bladder problems. labs; cbc wbc 13.4, hgb 7.8, hct 28.0, plt 298, blood glucose 150, chest x-ray, CT abdomen/pelvis with contrast- abnormal consulted with Neprology- advise admission to [facility] and treat for sepsis. Sepsis with urinary tract infection -blood cultures X2 pending -IV Vancomycin 1 gram every 12 hours -IV Ancef 1 gram every 8 hours -am labs - CBC, bmp Type 2 diabetes mellitus - has been a Diabetic for over 50 years with insulin for the past 10 years. last HgbA1c was less than 7. -low dose sliding scale coverage -blood glucose checking before meals and evening. -Trulicity 0.75 mg as directed every Tuesday -Insulin Tresibe 57 units daily -A1c in the morning Chronic Anemia - history of anemia, has had a blood transfusion in the past for this, hemoglobin 7.8 with hemocrit 28 -consider blood transfusion -am labs CBC Insominia -Melatonin 6 mg at hs prn -Benadryl 25 mg at hs prn Maintenance issues -Orders home meds: chronic medication -Nutrition: consistent carb diet -Pérez catheter - not indicated -DVT - Lovenox 40 mg daily -consult to Supervisor Insulation CODE STATUS: DNR/DNI Admission status: Admit to Med-Surg Admission justification. This patient will be admitted for inpatient services and is medically appropriate meeting medical necessity for inpatient admission as outlined in my documentation. I reasonably expect the patient will require inpatient services that span. Time over 2 midnights. I reasonably expect this patient to be discharged or transferred within 96 hours after admission to the critical access hospital. Disposition: discharge back to Home with Primary care provider: Dr. Lamb, [facility] Hospitalist: Dr. Diego Poe - Mortality Measure Prognosis:: Good
[2021-04-21] MEDS ORDERED: oxyCODONE 5 MG Tab PO PRN (03:09)
[2021-04-21] MEDS ORDERED: Bisacodyl 5 MG Tab PO PRN (03:09)
[2021-04-21] MEDS ORDERED: Phenazopyridine 95 MG Tab PO PRN (03:09)
[2021-04-21] MEDS ORDERED: Docusate Sodium 100 MG Cap PO PRN (03:09)
[2021-04-21] MEDS ORDERED: Sodium Chloride 0.9% 1,000 ML IV SCH (03:09)
[2021-04-21] MEDS ORDERED: Ondansetron 4 MG Tab.DIS PO PRN (03:09)
[2021-04-21] MEDS ORDERED: diphenhydrAMINE 25 MG Cap PO PRN (03:09)
[2021-04-21] MEDS ORDERED: Ondansetron 4 MG/2 ML SDV IV PRN (03:09)
[2021-04-21] MEDS ORDERED: Morphine 2 MG/ML SYRINGE IVPUSH PRN (03:09)
[2021-04-21] MEDS ORDERED: Vancomycin 1 GM SDV IV SCH (07:00)
[2021-04-21] MEDS: Insulin Lispro 100 Unit/ML 3 ML KwikPen SUBCUT SCH ×4 (08:08→21:52)
[2021-04-21] MEDS: Acetaminophen 325 MG Tab PO PRN ×2 (08:18→15:34)
[2021-04-21] MEDS: Albuterol 0.083% 2.5 MG/3 ML Neb Soln NEB PRN ×2 (08:23→21:51)
[2021-04-21] MEDS: Levothyroxine 25 MCG Tab PO SCH (08:39)
[2021-04-21] MEDS: Levothyroxine 112 MCG Tab PO SCH (08:39)
[2021-04-21] MEDS: Multivitamins with Iron/Calcium/Folic Acid/Minerals Tab PO SCH (08:40)
[2021-04-21] MEDS: Tamsulosin 0.4 MG Cap.ER PO SCH (08:40)
[2021-04-21] MEDS: Insulin Glargine,Human Rec. Analog 100 Units/ML 3 ML Pen SUBCUT SCH (08:41)
[2021-04-21] MEDS: Metoprolol Succinate 50 MG Tab.ER PO SCH (08:51)
[2021-04-21] MEDS ORDERED: Non-Formulary Medication 1 Each (Simvastatin [Zocor] 20 MG Tablet) PO SCH (09:00)
[2021-04-21] MEDS ORDERED: Non-Formulary Medication 1 Each (Levothyroxine [Levothyroxine] 150 MCG Tablet) PO SCH (09:00)
[2021-04-21] MEDS ORDERED: DULoxetine 20 MG Cap PO SCH (09:00)
[2021-04-21] MEDS ORDERED: Enoxaparin 40 MG/0.4 ML Syringe SUBCUT SCH (09:00)
[2021-04-21] MEDS ORDERED: atorvaSTATin 10 MG Tab PO SCH (09:00)
--- NOTE | 2021-04-21 09:07 | CR ---
CHEST: Portable 04/21/2021 at 12:29 AM CLINICAL HISTORY:Chills and weakness COMPARISON:04/20/2021 FINDINGS: There is minimal streaky density in both lung bases which may be scarring and/or atelectasis. The heart size, pulmonary vascularity and hilar structures are normal. No infiltrate effusion or pneumothorax is seen. There are atherosclerotic changes in the aorta. IMPRESSION: No acute cardiopulmonary process. No significant change from prior study
[2021-04-21] MEDS ORDERED: Ketorolac 30 MG/ML SDV IVPUSH ONE (10:55)
--- NOTE | 2021-04-21 12:52 | PCM.PN ---
- General Info Date of Service: 04/21/21 Subjective Update: No acute events overnight following admission. He did have a low-grade fever this morning. He does feel better today than yesterday. Strength is a little better. Sepsis has resolved. Appetite is good as of this afternoon. No significant abdominal pain. He does have 4 + blood cultures with gram-negative rods. Urine culture is also growing a gram negative rods. Hemoglobin was down below 7 and he did receive 1 unit of packed red blood cells this morning. Functional Status: Reports: Pain Controlled, Tolerating Diet - Review of Systems General: Reports: Fever, Weakness - Patient Data Vitals - Most Recent: Last Vital Signs Temp 38.2 C H 04/21/21 11:07 Pulse 94 04/21/21 11:07 Resp 20 04/21/21 11:07 BP 140/58 L 04/21/21 11:07 Pulse Ox 95 04/21/21 11:07 Weight - Most Recent: 84.912 kg I&O - Last 24 Hours: Intake & Output 04/20/21 04/21/21 04/21/21 22:59 06:59 14:59 Intake Total 223 690 Output Total 175 200 Balance 48 490 Lab Results Last 24 Hours: Laboratory Results - last 24 hr 04/20/21 04/20/21 04/20/21 Range/Units 23:00 23:00 23:00 WBC 13.4 H (4.5-11.0) K/uL RBC 4.28 L (4.30-5.90) M/uL Hgb 7.8 L (12.0-15.0) g/dL Hct 28.0 L (40.0-54.0) % MCV 65 L (80-98) fL MCH 18 L (27-31) pg MCHC 28 L (32-36) % Plt Count 298 (150-400) K/uL Neut % (Auto) 89.5 H (36-66) % Lymph % (Auto) 4.9 L (24-44) % Door % (Auto) 4.8 (2-6) % Eos % (Auto) 0.5 L (2-4) % Baso % (Auto) 0.3 (0-1) % Sodium 137 L (140-148) mmol/L Potassium 4.4 (3.6-5.2) mmol/L Chloride 101 (100-108) mmol/L Carbon Dioxide 22 (21-32) mmol/L Anion Gap 18.4 H (5.0-14.0) mmol/L BUN 26 H (7-18) mg/dL Creatinine 1.1 (0.8-1.3) mg/dL Est Cr Clr Drug Dosing 48.41 mL/min Estimated GFR (MDRD) > 60 (>60) Glucose 150 H (74-106) mg/dL POC Glucose (74-106) mg/dL Lactic Acid 4.3 H (0.4-2.0) mmol/L Calcium 8.2 L (8.5-10.1) mg/dL Total Bilirubin 0.8 D (0.2-1.0) mg/dL AST 50 H D (15-37) U/L ALT 46 (12-78) U/L Alkaline Phosphatase 127 H (46-116) U/L C-Reactive Protein (0.0-0.3) mg/dL Total Protein 6.6 (6.4-8.2) g/dL Albumin 3.1 L (3.4-5.0) g/dL Globulin 3.5 (2.3-3.5) g/dL Albumin/Globulin Ratio 0.9 L (1.2-2.2) Influenza Type A RNA (NEGATIVE) RSV RNA (INAAT) (NEGATIVE) Influenza Type B RNA (NEGATIVE) SARS-CoV-2 RNA (ROSALBA) (NEGATIVE) Blood Type Gel Antibody Screen Crossmatch 04/20/21 04/21/21 04/21/21 Range/Units 23:05 04:30 04:30 WBC 9.8 (4.5-11.0) K/uL RBC 3.72 L (4.30-5.90) M/uL Hgb 6.7 L* (12.0-15.0) g/dL Hct 24.5 L (40.0-54.0) % MCV 66 L (80-98) fL MCH 18 L (27-31) pg MCHC 27 L (32-36) % Plt Count 247 (150-400) K/uL Neut % (Auto) 81.8 H (36-66) % Lymph % (Auto) 5.5 L (24-44) % Door % (Auto) 11.1 H (2-6) % Eos % (Auto) 1.4 L (2-4) % Baso % (Auto) 0.2 (0-1) % Sodium (140-148) mmol/L Potassium (3.6-5.2) mmol/L Chloride (100-108) mmol/L Carbon Dioxide (21-32) mmol/L Anion Gap (5.0-14.0) mmol/L BUN (7-18) mg/dL Creatinine (0.8-1.3) mg/dL Est Cr Clr Drug Dosing mL/min Estimated GFR (MDRD) (>60) Glucose (74-106) mg/dL POC Glucose (74-106) mg/dL Lactic Acid 0.9 (0.4-2.0) mmol/L Calcium (8.5-10.1) mg/dL Total Bilirubin (0.2-1.0) mg/dL AST (15-37) U/L ALT (12-78) U/L Alkaline Phosphatase (46-116) U/L C-Reactive Protein (0.0-0.3) mg/dL Total Protein (6.4-8.2) g/dL Albumin (3.4-5.0) g/dL Globulin (2.3-3.5) g/dL Albumin/Globulin Ratio (1.2-2.2) Influenza Type A RNA Negative (NEGATIVE) RSV RNA (INAAT) Negative (NEGATIVE) Influenza Type B RNA Negative (NEGATIVE) SARS-CoV-2 RNA (ROSALBA) Negative (NEGATIVE) Blood Type Gel Antibody Screen Crossmatch 04/21/21 04/21/21 04/21/21 Range/Units 04:30 04:40 07:23 WBC (4.5-11.0) K/uL RBC (4.30-5.90) M/uL Hgb (12.0-15.0) g/dL Hct (40.0-54.0) % MCV (80-98) fL MCH (27-31) pg MCHC (32-36) % Plt Count (150-400) K/uL Neut % (Auto) (36-66) % Lymph % (Auto) (24-44) % Door % (Auto) (2-6) % Eos % (Auto) (2-4) % Baso % (Auto) (0-1) % Sodium 139 L (140-148) mmol/L Potassium 3.8 (3.6-5.2) mmol/L Chloride 106 (100-108) mmol/L Carbon Dioxide 25 (21-32) mmol/L Anion Gap 11.8 (5.0-14.0) mmol/L BUN 26 H (7-18) mg/dL Creatinine 1.0 (0.8-1.3) mg/dL Est Cr Clr Drug Dosing 53.25 mL/min Estimated GFR (MDRD) > 60 (>60) Glucose 92 (74-106) mg/dL POC Glucose 79 (74-106) mg/dL Lactic Acid (0.4-2.0) mmol/L Calcium 7.4 L (8.5-10.1) mg/dL Total Bilirubin (0.2-1.0) mg/dL AST (15-37) U/L ALT (12-78) U/L Alkaline Phosphatase (46-116) U/L C-Reactive Protein 10.88 H (0.0-0.3) mg/dL Total Protein (6.4-8.2) g/dL Albumin (3.4-5.0) g/dL Globulin (2.3-3.5) g/dL Albumin/Globulin Ratio (1.2-2.2) Influenza Type A RNA (NEGATIVE) RSV RNA (INAAT) (NEGATIVE) Influenza Type B RNA (NEGATIVE) SARS-CoV-2 RNA (ROSALBA) (NEGATIVE) Blood Type A POSITIVE Gel Antibody Screen Negative Crossmatch See Detail 04/21/21 Range/Units 11:17 WBC (4.5-11.0) K/uL RBC (4.30-5.90) M/uL Hgb (12.0-15.0) g/dL Hct (40.0-54.0) % MCV (80-98) fL MCH (27-31) pg MCHC (32-36) % Plt Count (150-400) K/uL Neut % (Auto) (36-66) % Lymph % (Auto) (24-44) % Door % (Auto) (2-6) % Eos % (Auto) (2-4) % Baso % (Auto) (0-1) % Sodium (140-148) mmol/L Potassium (3.6-5.2) mmol/L Chloride (100-108) mmol/L Carbon Dioxide (21-32) mmol/L Anion Gap (5.0-14.0) mmol/L BUN (7-18) mg/dL Creatinine (0.8-1.3) mg/dL Est Cr Clr Drug Dosing mL/min Estimated GFR (MDRD) (>60) Glucose (74-106) mg/dL POC Glucose 147 H (74-106) mg/dL Lactic Acid (0.4-2.0) mmol/L Calcium (8.5-10.1) mg/dL Total Bilirubin (0.2-1.0) mg/dL AST (15-37) U/L ALT (12-78) U/L Alkaline Phosphatase (46-116) U/L C-Reactive Protein (0.0-0.3) mg/dL Total Protein (6.4-8.2) g/dL Albumin (3.4-5.0) g/dL Globulin (2.3-3.5) g/dL Albumin/Globulin Ratio (1.2-2.2) Influenza Type A RNA (NEGATIVE) RSV RNA (INAAT) (NEGATIVE) Influenza Type B RNA (NEGATIVE) SARS-CoV-2 RNA (ROSALBA) (NEGATIVE) Blood Type Gel Antibody Screen Crossmatch Joel Results Last 24 Hours: Microbiology 04/20/21 23:00 Aerobic Blood Culture - Preliminary Blood - Arm, Right 04/20/21 23:00 Anaerobic Blood Culture - Preliminary Blood - Venous - Iv Start Med Orders - Current: Current Medications Acetaminophen (Acetaminophen 325 Mg Tab) 650 mg PO Q4H PRN PRN Reason: Pain (Mild 1-3)/fever Last Admin: 04/21/21 08:18 Dose: 650 mg Documented by: Albuterol (Albuterol 0.083% 2.5 Mg/3 Ml Neb Soln) 2.5 mg NEB Q4H PRN PRN Reason: Shortness Of Breath/wheezing Last Admin: 04/21/21 08:23 Dose: 2.5 mg Documented by: Atorvastatin Calcium (Atorvastatin 10 Mg Tab) 10 mg PO BEDTIME [facility] Bisacodyl (Bisacodyl 5 Mg Tab) 5 mg PO DAILY PRN PRN Reason: Constipation Diphenhydramine HCl (Diphenhydramine 25 Mg Cap) 25 mg PO BEDTIME PRN PRN Reason: Insomnia Docusate Sodium (Docusate Sodium 100 Mg Cap) 100 mg PO BID PRN PRN Reason: Constipation Duloxetine HCl (Duloxetine 20 Mg Cap) [address] [facility] Enoxaparin Sodium (Enoxaparin 40 Mg/0.4 Ml Syringe) [address] [facility] Last Admin: 04/21/21 08:40 Dose: 40 mg Documented by: Sodium Chloride (Normal Saline) 1,000 mls @ 125 mls/hr IV ASDIRECTED [facility] Last Admin: 04/21/21 03:56 Dose: 125 mls/hr Documented by: Cefepime HCl 1 gm/ Sodium (Chloride) 50 mls @ 100 mls/hr IV Q12H [facility] Insulin Glargine (Insulin Glargine,Human Rec. Analog 100 Units/Ml 3 Ml Pen) [address] [facility] Last Admin: 04/21/21 08:41 Dose: 52 units Documented by: Insulin Human Lispro (Insulin Lispro 100 Unit/Ml 3 Ml Kwikpen) [address] [facility]; Protocol Last Admin: 04/21/21 11:17 Dose: Not Given Documented by: Levothyroxine Sodium (Levothyroxine 112 Mcg Tab) [address] [facility] Last Admin: 04/21/21 08:39 Dose: 112 mcg Documented by: Levothyroxine Sodium (Levothyroxine 25 Mcg Tab) [address] [facility] Last Admin: 04/21/21 08:39 Dose: 25 mcg Documented by: Melatonin (Melatonin 3 Mg Tab) 6 mg PO BEDTIME PRN PRN Reason: Insomnia Metoprolol Succinate (Metoprolol Succinate 50 Mg Tab.Er) [address] [facility] Last Admin: 04/21/21 08:51 Dose: 50 mg Documented by: Mirtazapine (Mirtazapine 15 Mg Tab) [address] [facility] Morphine Sulfate (Morphine 2 Mg/Ml Syringe) 2 mg IVPUSH Q2H PRN PRN Reason: Pain (severe 7-10) Multivitamins/Minerals (Multivitamins With Iron/Calcium/Folic Acid/Minerals Tab) [address] [facility] Last Admin: 04/21/21 08:40 Dose: 1 tab Documented by: Ondansetron HCl (Ondansetron 4 Mg Tab.Dis) 4 mg PO Q6H PRN PRN Reason: Nausea able to take PO Ondansetron HCl (Ondansetron 4 Mg/2 Ml Sdv) 4 mg IV Q4H PRN PRN Reason: Nausea/Vomiting Oxycodone HCl (Oxycodone 5 Mg Tab) 5 mg PO Q4H PRN PRN Reason: Pain (moderate 4-6) Trulicity 0.75mg * (Ptom*) 0 each SUBCUT Esquivel@0900 [facility] Phenazopyridine HCl (Phenazopyridine 95 Mg Tab) 190 mg PO Q12H PRN PRN Reason: Abdominal Pain Ramipril (Ramipril 2.5 Mg Cap) 2.[address] [facility] Last Admin: 04/21/21 08:39 Dose: 2.5 mg Documented by: Sodium Chloride (Sodium Chloride 0.9% 10 Ml Syringe) 10 ml FLUSH ASDIRECTED PRN PRN Reason: Keep Vein Open Last Admin: 04/20/21 23:04 Dose: 10 ml Documented by: Tamsulosin HCl (Tamsulosin 0.4 Mg Cap.Er) 0.[address] [facility] Last Admin: 04/21/21 08:40 Dose: 0.4 mg Documented by: Discontinued Medications Sodium Chloride (Normal Saline) 1,000 mls @ 999 mls/hr IV BOLUS ONE; Protocol Stop: 04/21/21 01:10 Last Admin: 04/21/21 00:55 Dose: 999 mls/hr Documented by: Vancomycin HCl 1 gm/ Sodium (Chloride) 250 mls @ 167 mls/hr IV STAT ONE Stop: 04/21/21 01:39 Last Admin: 04/21/21 02:26 Dose: 167 mls/hr Documented by: Ceftriaxone Sodium 1 gm/ (Sodium Chloride) 50 mls @ 100 mls/hr IV STAT ONE Stop: 04/21/21 00:39 Last Admin: 04/21/21 00:55 Dose: 100 mls/hr Documented by: Sterile Water (Sterile Water For Injection) Confirm Administered Dose 10 mls @ as directed .ROUTE .STK-MED ONE Stop: 04/21/21 00:35 Last Admin: 04/21/21 03:45 Dose: Not Given Documented by: Sterile Water (Sterile Water For Injection) Confirm Administered Dose 20 mls @ as directed .ROUTE .STK-MED ONE Stop: 04/21/21 01:01 Last Admin: 04/21/21 03:46 Dose: Not Given Documented by: Cefepime HCl 2 gm/ Sodium (Chloride) 50 mls @ 100 mls/hr IV ONETIME ONE Stop: 04/21/21 01:54 Last Admin: 04/21/21 04:17 Dose: Not Given Documented by: Cefepime HCl 1 gm/ Sodium (Chloride) 50 mls @ 100 mls/hr IV Q12H [facility] Last Admin: 04/21/21 01:49 Dose: 100 mls/hr Documented by: Vancomycin HCl 1.25 gm/ Sodium (Chloride) 250 mls @ 166.667 mls/hr IV Q24H [facility] Ketorolac Tromethamine (Ketorolac 30 Mg/Ml Sdv) 30 mg IVPUSH ONETIME ONE Stop: 04/21/21 10:56 Last Admin: 04/21/21 11:11 Dose: 30 mg Documented by: Sodium Chloride (Sodium Chloride 0.9% 10 Ml Syringe) 10 ml FLUSH ASDIRECTED PRN PRN Reason: Keep Vein Open Vancomycin HCl (Vancomycin 1 Gm Sdv) 0 gm IV .PHARMACY TO DOSE [facility] Stop: 04/21/21 10:00 - Exam Quality Assessment: No: Supplemental Oxygen General: Alert, Oriented, Cooperative, No Acute Distress Lungs: Normal Respiratory Effort. No: Wheezing GI/Abdominal Exam: Soft, No Distention Extremities: No Pedal Edema. No: Increased Warmth Psy/Mental Status: Alert, Normal Affect - Patient Data Lab Results Last 24 hrs: Laboratory Results - last 24 hr 04/20/21 04/20/21 04/20/21 Range/Units 23:00 23:00 23:00 WBC 13.4 H (4.5-11.0) K/uL RBC 4.28 L (4.30-5.90) M/uL Hgb 7.8 L (12.0-15.0) g/dL Hct 28.0 L (40.0-54.0) % MCV 65 L (80-98) fL MCH 18 L (27-31) pg MCHC 28 L (32-36) % Plt Count 298 (150-400) K/uL Neut % (Auto) 89.5 H (36-66) % Lymph % (Auto) 4.9 L (24-44) % Door % (Auto) 4.8 (2-6) % Eos % (Auto) 0.5 L (2-4) % Baso % (Auto) 0.3 (0-1) % Sodium 137 L (140-148) mmol/L Potassium 4.4 (3.6-5.2) mmol/L Chloride 101 (100-108) mmol/L Carbon Dioxide 22 (21-32) mmol/L Anion Gap 18.4 H (5.0-14.0) mmol/L BUN 26 H (7-18) mg/dL Creatinine 1.1 (0.8-1.3) mg/dL Est Cr Clr Drug Dosing 48.41 mL/min Estimated GFR (MDRD) > 60 (>60) Glucose 150 H (74-106) mg/dL POC Glucose (74-106) mg/dL Lactic Acid 4.3 H (0.4-2.0) mmol/L Calcium 8.2 L (8.5-10.1) mg/dL Total Bilirubin 0.8 D (0.2-1.0) mg/dL AST 50 H D (15-37) U/L ALT 46 (12-78) U/L Alkaline Phosphatase 127 H (46-116) U/L C-Reactive Protein (0.0-0.3) mg/dL Total Protein 6.6 (6.4-8.2) g/dL Albumin 3.1 L (3.4-5.0) g/dL Globulin 3.5 (2.3-3.5) g/dL Albumin/Globulin Ratio 0.9 L (1.2-2.2) Influenza Type A RNA (NEGATIVE) RSV RNA (INAAT) (NEGATIVE) Influenza Type B RNA (NEGATIVE) SARS-CoV-2 RNA (ROSALBA) (NEGATIVE) Blood Type Gel Antibody Screen Crossmatch 04/20/21 04/21/21 04/21/21 Range/Units 23:05 04:30 04:30 WBC 9.8 (4.5-11.0) K/uL RBC 3.72 L (4.30-5.90) M/uL Hgb 6.7 L* (12.0-15.0) g/dL Hct 24.5 L (40.0-54.0) % MCV 66 L (80-98) fL MCH 18 L (27-31) pg MCHC 27 L (32-36) % Plt Count 247 (150-400) K/uL Neut % (Auto) 81.8 H (36-66) % Lymph % (Auto) 5.5 L (24-44) % Door % (Auto) 11.1 H (2-6) % Eos % (Auto) 1.4 L (2-4) % Baso % (Auto) 0.2 (0-1) % Sodium (140-148) mmol/L Potassium (3.6-5.2) mmol/L Chloride (100-108) mmol/L Carbon Dioxide (21-32) mmol/L Anion Gap (5.0-14.0) mmol/L BUN (7-18) mg/dL Creatinine (0.8-1.3) mg/dL Est Cr Clr Drug Dosing mL/min Estimated GFR (MDRD) (>60) Glucose (74-106) mg/dL POC Glucose (74-106) mg/dL Lactic Acid 0.9 (0.4-2.0) mmol/L Calcium (8.5-10.1) mg/dL Total Bilirubin (0.2-1.0) mg/dL AST (15-37) U/L ALT (12-78) U/L Alkaline Phosphatase (46-116) U/L C-Reactive Protein (0.0-0.3) mg/dL Total Protein (6.4-8.2) g/dL Albumin (3.4-5.0) g/dL Globulin (2.3-3.5) g/dL Albumin/Globulin Ratio (1.2-2.2) Influenza Type A RNA Negative (NEGATIVE) RSV RNA (INAAT) Negative (NEGATIVE) Influenza Type B RNA Negative (NEGATIVE) SARS-CoV-2 RNA (ROSALBA) Negative (NEGATIVE) Blood Type Gel Antibody Screen Crossmatch 04/21/21 04/21/21 04/21/21 Range/Units 04:30 04:40 07:23 WBC (4.5-11.0) K/uL RBC (4.30-5.90) M/uL Hgb (12.0-15.0) g/dL Hct (40.0-54.0) % MCV (80-98) fL MCH (27-31) pg MCHC (32-36) % Plt Count (150-400) K/uL Neut % (Auto) (36-66) % Lymph % (Auto) (24-44) % Door % (Auto) (2-6) % Eos % (Auto) (2-4) % Baso % (Auto) (0-1) % Sodium 139 L (140-148) mmol/L Potassium 3.8 (3.6-5.2) mmol/L Chloride 106 (100-108) mmol/L Carbon Dioxide 25 (21-32) mmol/L Anion Gap 11.8 (5.0-14.0) mmol/L BUN 26 H (7-18) mg/dL Creatinine 1.0 (0.8-1.3) mg/dL Est Cr Clr Drug Dosing 53.25 mL/min Estimated GFR (MDRD) > 60 (>60) Glucose 92 (74-106) mg/dL POC Glucose 79 (74-106) mg/dL Lactic Acid (0.4-2.0) mmol/L Calcium 7.4 L (8.5-10.1) mg/dL Total Bilirubin (0.2-1.0) mg/dL AST (15-37) U/L ALT (12-78) U/L Alkaline Phosphatase (46-116) U/L C-Reactive Protein 10.88 H (0.0-0.3) mg/dL Total Protein (6.4-8.2) g/dL Albumin (3.4-5.0) g/dL Globulin (2.3-3.5) g/dL Albumin/Globulin Ratio (1.2-2.2) Influenza Type A RNA (NEGATIVE) RSV RNA (INAAT) (NEGATIVE) Influenza Type B RNA (NEGATIVE) SARS-CoV-2 RNA (ROSALBA) (NEGATIVE) Blood Type A POSITIVE Gel Antibody Screen Negative Crossmatch See Detail 04/21/21 Range/Units 11:17 WBC (4.5-11.0) K/uL RBC (4.30-5.90) M/uL Hgb (12.0-15.0) g/dL Hct (40.0-54.0) % MCV (80-98) fL MCH (27-31) pg MCHC (32-36) % Plt Count (150-400) K/uL Neut % (Auto) (36-66) % Lymph % (Auto) (24-44) % Door % (Auto) (2-6) % Eos % (Auto) (2-4) % Baso % (Auto) (0-1) % Sodium (140-148) mmol/L Potassium (3.6-5.2) mmol/L Chloride (100-108) mmol/L Carbon Dioxide (21-32) mmol/L Anion Gap (5.0-14.0) mmol/L BUN (7-18) mg/dL Creatinine (0.8-1.3) mg/dL Est Cr Clr Drug Dosing mL/min Estimated GFR (MDRD) (>60) Glucose (74-106) mg/dL POC Glucose 147 H (74-106) mg/dL Lactic Acid (0.4-2.0) mmol/L Calcium (8.5-10.1) mg/dL Total Bilirubin (0.2-1.0) mg/dL AST (15-37) U/L ALT (12-78) U/L Alkaline Phosphatase (46-116) U/L C-Reactive Protein (0.0-0.3) mg/dL Total Protein (6.4-8.2) g/dL Albumin (3.4-5.0) g/dL Globulin (2.3-3.5) g/dL Albumin/Globulin Ratio (1.2-2.2) Influenza Type A RNA (NEGATIVE) RSV RNA (INAAT) (NEGATIVE) Influenza Type B RNA (NEGATIVE) SARS-CoV-2 RNA (ROSALBA) (NEGATIVE) Blood Type Gel Antibody Screen Crossmatch Result Diagrams: 04/21/21 04:30 04/21/21 04:30 Joel Results Last 24 hrs: Microbiology 04/20/21 23:00 Aerobic Blood Culture - Preliminary Blood - Arm, Right 04/20/21 23:00 Anaerobic Blood Culture - Preliminary Blood - Venous - Iv Start Sepsis Event Note - Evaluation Sepsis Screening Result: Sepsis Risk - Focused Exam Vital Signs: Vital Signs Temp Temp Temp Pulse Pulse Resp BP 04/21/21 11:07 38.2 C H 94 20 04/21/21 10:52 38 C 90 18 04/21/21 10:30 38 C 95 20 04/21/21 10:00 38.2 C H 95 20 04/21/21 09:30 38.2 C H 100 20 04/21/21 09:00 38.2 C H 104 H 20 04/21/21 08:51 96 149/61 H 04/21/21 08:48 38.2 C H 04/21/21 08:45 38.5 C H 109 H 20 04/21/21 08:39 149/61 H 04/21/21 08:30 38.2 C H 102 H 24 H 04/21/21 08:18 38.0 C 04/21/21 08:15 38.0 C 96 20 04/21/21 08:05 38.0 C 96 20 04/21/21 04:00 04/21/21 03:15 36.9 C 76 18 04/21/21 02:18 92 BP BP Pulse Ox Pulse Ox 04/21/21 11:07 140/58 L 95 04/21/21 10:52 120/60 95 04/21/21 10:30 115/50 L 94 L 04/21/21 10:00 114/45 L 96 04/21/21 09:30 112/45 L 93 L 04/21/21 09:00 141/53 H 95 04/21/21 08:51 04/21/21 08:48 04/21/21 08:45 149/54 H 95 04/21/21 08:39 04/21/21 08:30 128/81 100 04/21/21 08:18 04/21/21 08:15 149/61 H 93 L 04/21/21 08:05 149/61 H 93 L 04/21/21 04:00 98 98 04/21/21 03:15 94/53 L 98 04/21/21 02:18 113/62 - Problem List Review Problem List Initiated/Reviewed/Updated: Yes - My Orders Last 24 Hours: My Active Orders 04/21/21 08:45 Cardiac Monitoring Discontinue [RC] Click to Edit Up With Assistance [RC] ASDIRECTED 04/21/21 12:51 Convert IV to Saline Lock [OM.PC] Routine 04/21/21 16:00 HGB [HEMOGLOBIN] [HEME] Timed 04/22/21 05:00 BASIC METABOLIC PANEL,BMP [CHEM] Timed CBC W/O DIFF,HEMOGRAM [HEME] Timed (1) - Plan Plan:: ASSESSMENT AND PLAN - Acute cystitis with complicated urinary tract infection-complicated by sepsis which is now resolved. He has gram-negative bacteremia and a gram-negative norberto in his urine culture. Clinically stable and improving. -Continue cefepime until culture final -Follow-up urine culture and blood cultures -Saline lock IV fluids Type 2 diabetes mellitus -blood sugars have been controlled so far. -low dose sliding scale coverage -blood glucose checking before meals and evening. 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 Hemoglobin below 7 this morning. He did receive 1 unit of blood this morning. -Follow-up hemoglobin this afternoon, transfuse if less than 7.5 -Recheck hemoglobin in the morning as well Insominia -Melatonin 6 mg at hs prn -Benadryl 25 mg at hs prn Maintenance issues -Nutrition: consistent carb diet -DVT -mechanical with chronic lower GI bleeding Disposition: Anticipate discharge home after the hospital stay Diego Poe MD
[2021-04-21] MEDS: Cefepime 1 GM in Sodium Chloride 0.9% 50 ML IV SCH (13:56)
[2021-04-21] MEDS: DULoxetine 20 MG Cap PO SCH (21:54)
[2021-04-21] MEDS: atorvaSTATin 10 MG Tab PO SCH (21:54)
[2021-04-21] MEDS: Mirtazapine 15 MG Tab PO SCH (21:54)
[2021-04-21] MEDS: Melatonin 3 MG Tab PO PRN (23:02)
[2021-04-22] MEDS: Cefepime 1 GM in Sodium Chloride 0.9% 50 ML IV SCH ×2 (01:46→14:29)
[2021-04-22] MEDS: Acetaminophen 325 MG Tab PO PRN ×2 (03:36→19:40)
[2021-04-22] MEDS: Insulin Lispro 100 Unit/ML 3 ML KwikPen SUBCUT SCH ×4 (08:14→21:17)
[2021-04-22] MEDS: Multivitamins with Iron/Calcium/Folic Acid/Minerals Tab PO SCH (08:14)
[2021-04-22] MEDS: Levothyroxine 25 MCG Tab PO SCH (08:15)
[2021-04-22] MEDS: Tamsulosin 0.4 MG Cap.ER PO SCH (08:15)
[2021-04-22] MEDS: Metoprolol Succinate 50 MG Tab.ER PO SCH (08:15)
[2021-04-22] MEDS: Levothyroxine 112 MCG Tab PO SCH (08:16)
[2021-04-22] MEDS: Insulin Glargine,Human Rec. Analog 100 Units/ML 3 ML Pen SUBCUT SCH (08:19)
--- NOTE | 2021-04-22 15:00 | PCM.PN ---
- General Info Date of Service: 04/22/21 Subjective Update: No acute events overnight. Low-grade temperature elevation but no true fever. No reports of rigors overnight. Appetite good. A little weak but overall doing well. No abdominal pain or nausea. Urine culture and blood cultures are still pending with gram-negative rods growing but no identification yet. Blood sugars have been fairly well controlled. Patient is in good spirits. Functional Status: Reports: Pain Controlled, Tolerating Diet - Review of Systems General: Reports: Weakness - Patient Data Vitals - Most Recent: Last Vital Signs Temp 36.7 C 04/22/21 14:28 Pulse 84 04/22/21 14:28 Resp 18 04/22/21 14:28 BP 123/65 04/22/21 14:28 Pulse Ox 97 04/22/21 14:28 Weight - Most Recent: 84.822 kg I&O - Last 24 Hours: Intake & Output 04/21/21 04/22/21 04/22/21 22:59 06:59 14:59 Intake Total 1225 550 690 Output Total 300 325 200 Balance 925 225 490 Lab Results Last 24 Hours: Laboratory Results - last 24 hr 04/21/21 04/21/21 04/21/21 Range/Units 16:14 16:14 21:03 WBC (4.5-11.0) K/uL RBC (4.30-5.90) M/uL Hgb 7.7 L (12.0-15.0) g/dL Hct (40.0-54.0) % MCV (80-98) fL MCH (27-31) pg MCHC (32-36) % Plt Count (150-400) K/uL Sodium (140-148) mmol/L Potassium (3.6-5.2) mmol/L Chloride (100-108) mmol/L Carbon Dioxide (21-32) mmol/L Anion Gap (5.0-14.0) mmol/L BUN (7-18) mg/dL Creatinine (0.8-1.3) mg/dL Est Cr Clr Drug Dosing mL/min Estimated GFR (MDRD) (>60) Glucose (74-106) mg/dL POC Glucose 198 H 204 H (74-106) mg/dL Calcium (8.5-10.1) mg/dL 04/22/21 04/22/2121 Range/Units 06:29 06:29 07:30 WBC 8.2 (4.5-11.0) K/uL RBC 4.01 L (4.30-5.90) M/uL Hgb 7.7 L (12.0-15.0) g/dL Hct 27.0 L (40.0-54.0) % MCV 67 L (80-98) fL MCH 19 L (27-31) pg MCHC 29 L (32-36) % Plt Count 255 (150-400) K/uL Sodium 140 (140-148) mmol/L Potassium 3.9 (3.6-5.2) mmol/L Chloride 108 (100-108) mmol/L Carbon Dioxide 25 (21-32) mmol/L Anion Gap 7.4 (5.0-14.0) mmol/L BUN 23 H (7-18) mg/dL Creatinine 0.8 (0.8-1.3) mg/dL Est Cr Clr Drug Dosing 66.56 mL/min Estimated GFR (MDRD) > 60 (>60) Glucose 123 H (74-106) mg/dL POC Glucose 97 (74-106) mg/dL Calcium 7.8 L (8.5-10.1) mg/dL 04/22/21 Range/Units 11:17 WBC (4.5-11.0) K/uL RBC (4.30-5.90) M/uL Hgb (12.0-15.0) g/dL Hct (40.0-54.0) % MCV (80-98) fL MCH (27-31) pg MCHC (32-36) % Plt Count (150-400) K/uL Sodium (140-148) mmol/L Potassium (3.6-5.2) mmol/L Chloride (100-108) mmol/L Carbon Dioxide (21-32) mmol/L Anion Gap (5.0-14.0) mmol/L BUN (7-18) mg/dL Creatinine (0.8-1.3) mg/dL Est Cr Clr Drug Dosing mL/min Estimated GFR (MDRD) (>60) Glucose (74-106) mg/dL POC Glucose 175 H (74-106) mg/dL Calcium (8.5-10.1) mg/dL Joel Results Last 24 Hours: Microbiology 04/20/21 23:00 Aerobic Blood Culture - Preliminary Blood - Arm, Right Anaerobic Blood Culture - Preliminary 04/20/21 23:00 Aerobic Blood Culture - Preliminary Blood - Venous - Iv Start Anaerobic Blood Culture - Preliminary 04/20/21 13:00 Urine Culture - Preliminary Urine, Voided Med Orders - Current: Current Medications Acetaminophen (Acetaminophen 325 Mg Tab) 650 mg PO Q4H PRN PRN Reason: Pain (Mild 1-3)/fever Last Admin: 04/22/21 03:36 Dose: 650 mg Documented by: Albuterol (Albuterol 0.083% 2.5 Mg/3 Ml Neb Soln) 2.5 mg NEB Q4H PRN PRN Reason: Shortness Of Breath/wheezing Last Admin: 04/21/21 21:51 Dose: 2.5 mg Documented by: Atorvastatin Calcium (Atorvastatin 10 Mg Tab) 10 mg PO BEDTIME ROSIBEL Last Admin: 04/21/21 21:54 Dose: 10 mg Documented by: Bisacodyl (Bisacodyl 5 Mg Tab) 5 mg PO DAILY PRN PRN Reason: Constipation Diphenhydramine HCl (Diphenhydramine 25 Mg Cap) 25 mg PO BEDTIME PRN PRN Reason: Insomnia Docusate Sodium (Docusate Sodium 100 Mg Cap) 100 mg PO BID PRN PRN Reason: Constipation Duloxetine HCl (Duloxetine 20 Mg Cap) 20 mg PO BEDTIME ROSIBEL Last Admin: 04/21/21 21:54 Dose: 20 mg Documented by: Cefepime HCl 1 gm/ Sodium (Chloride) 50 mls @ 100 mls/hr IV Q12H [facility] Last Admin: 04/22/21 14:29 Dose: 100 mls/hr Documented by: Insulin Glargine (Insulin Glargine,Human Rec. Analog 100 Units/Ml 3 Ml Pen) 52 units SUBCUT DAILY [facility] Last Admin: 04/22/21 08:19 Dose: 52 units Documented by: Insulin Human Lispro (Insulin Lispro 100 Unit/Ml 3 Ml Kwikpen) 0 unit SUBCUT QIDACANDBED [facility]; Protocol Last Admin: 04/22/21 11:31 Dose: 1 unit Documented by: Levothyroxine Sodium (Levothyroxine 112 Mcg Tab) 112 mcg PO ACBREAKFAST [facility] Last Admin: 04/22/21 08:16 Dose: 112 mcg Documented by: Levothyroxine Sodium (Levothyroxine 25 Mcg Tab) 25 mcg PO ACBREAKFAST [facility] Last Admin: 04/22/21 08:15 Dose: 25 mcg Documented by: Melatonin (Melatonin 3 Mg Tab) 6 mg PO BEDTIME PRN PRN Reason: Insomnia Last Admin: 04/21/21 23:02 Dose: 6 mg Documented by: Metoprolol Succinate (Metoprolol Succinate 50 Mg Tab.Er) 50 mg PO DAILY [facility] Last Admin: 04/22/21 08:15 Dose: 50 mg Documented by: Mirtazapine (Mirtazapine 15 Mg Tab) 15 mg PO BEDTIME [facility] Last Admin: 04/21/21 21:54 Dose: 15 mg Documented by: Morphine Sulfate (Morphine 2 Mg/Ml Syringe) 2 mg IVPUSH Q2H PRN PRN Reason: Pain (severe 7-10) Multivitamins/Minerals (Multivitamins With Iron/Calcium/Folic Acid/Minerals Tab) 1 tab PO DAILY [facility] Last Admin: 04/22/21 08:14 Dose: 1 tab Documented by: Ondansetron HCl (Ondansetron 4 Mg Tab.Dis) 4 mg PO Q6H PRN PRN Reason: Nausea able to take PO Ondansetron HCl (Ondansetron 4 Mg/2 Ml Sdv) 4 mg IV Q4H PRN PRN Reason: Nausea/Vomiting Oxycodone HCl (Oxycodone 5 Mg Tab) 5 mg PO Q4H PRN PRN Reason: Pain (moderate 4-6) Trulicity 0.75mg * (Ptom*) 0 each SUBCUT Esquivel@0900 [facility] Phenazopyridine HCl (Phenazopyridine 95 Mg Tab) 190 mg PO Q12H PRN PRN Reason: Abdominal Pain Ramipril (Ramipril 2.5 Mg Cap) 2.5 mg PO DAILY [facility] Last Admin: 04/22/21 08:14 Dose: 2.5 mg Documented by: Sodium Chloride (Sodium Chloride 0.9% 10 Ml Syringe) 10 ml FLUSH ASDIRECTED PRN PRN Reason: Keep Vein Open Last Admin: 04/20/21 23:04 Dose: 10 ml Documented by: Tamsulosin HCl (Tamsulosin 0.4 Mg Cap.Er) 0.4 mg PO DAILY [facility] Last Admin: 04/22/21 08:15 Dose: 0.4 mg Documented by: Discontinued Medications Enoxaparin Sodium (Enoxaparin 40 Mg/0.4 Ml Syringe) 40 mg SUBCUT DAILY [facility] Last Admin: 04/21/21 08:40 Dose: 40 mg Documented by: Sodium Chloride (Normal Saline) 1,000 mls @ 999 mls/hr IV BOLUS ONE; Protocol Stop: 04/21/21 01:10 Last Admin: 04/21/21 00:55 Dose: 999 mls/hr Documented by: Vancomycin HCl 1 gm/ Sodium (Chloride) 250 mls @ 167 mls/hr IV STAT ONE Stop: 04/21/21 01:39 Last Admin: 04/21/21 02:26 Dose: 167 mls/hr Documented by: Ceftriaxone Sodium 1 gm/ (Sodium Chloride) 50 mls @ 100 mls/hr IV STAT ONE Stop: 04/21/21 00:39 Last Admin: 04/21/21 00:55 Dose: 100 mls/hr Documented by: Sterile Water (Sterile Water For Injection) Confirm Administered Dose 10 mls @ as directed .ROUTE .STK-MED ONE Stop: 04/21/21 00:35 Last Admin: 04/21/21 03:45 Dose: Not Given Documented by: Sterile Water (Sterile Water For Injection) Confirm Administered Dose 20 mls @ as directed .ROUTE .STK-MED ONE Stop: 04/21/21 01:01 Last Admin: 04/21/21 03:46 Dose: Not Given Documented by: Cefepime HCl 2 gm/ Sodium (Chloride) 50 mls @ 100 mls/hr IV ONETIME ONE Stop: 04/21/21 01:54 Last Admin: 04/21/21 04:17 Dose: Not Given Documented by: Cefepime HCl 1 gm/ Sodium (Chloride) 50 mls @ 100 mls/hr IV Q12H [facility] Last Admin: 04/21/21 01:49 Dose: 100 mls/hr Documented by: Sodium Chloride (Normal Saline) 1,000 mls @ 125 mls/hr IV ASDIRECTED [facility] Last Admin: 04/21/21 03:56 Dose: 125 mls/hr Documented by: Vancomycin HCl 1.25 gm/ Sodium (Chloride) 250 mls @ 166.667 mls/hr IV Q24H [facility] Ketorolac Tromethamine (Ketorolac 30 Mg/Ml Sdv) 30 mg IVPUSH ONETIME ONE Stop: 04/21/21 10:56 Last Admin: 04/21/21 11:11 Dose: 30 mg Documented by: Sodium Chloride (Sodium Chloride 0.9% 10 Ml Syringe) 10 ml FLUSH ASDIRECTED PRN PRN Reason: Keep Vein Open Vancomycin HCl (Vancomycin 1 Gm Sdv) 0 gm IV .PHARMACY TO DOSE ROSIBEL Stop: 04/21/21 10:00 - Exam Quality Assessment: Supplemental Oxygen General: Alert, Oriented, Cooperative, No Acute Distress Lungs: Normal Respiratory Effort. No: Wheezing GI/Abdominal Exam: Soft, No Distention Extremities: No Pedal Edema. No: Increased Warmth Skin: Warm, Dry Psy/Mental Status: Alert, Normal Affect - Patient Data Lab Results Last 24 hrs: Laboratory Results - last 24 hr 04/21/21 04/21/21 04/21/21 Range/Units 16:14 16:14 21:03 WBC (4.5-11.0) K/uL RBC (4.30-5.90) M/uL Hgb 7.7 L (12.0-15.0) g/dL Hct (40.0-54.0) % MCV (80-98) fL MCH (27-31) pg MCHC (32-36) % Plt Count (150-400) K/uL Sodium (140-148) mmol/L Potassium (3.6-5.2) mmol/L Chloride (100-108) mmol/L Carbon Dioxide (21-32) mmol/L Anion Gap (5.0-14.0) mmol/L BUN (7-18) mg/dL Creatinine (0.8-1.3) mg/dL Est Cr Clr Drug Dosing mL/min Estimated GFR (MDRD) (>60) Glucose (74-106) mg/dL POC Glucose 198 H 204 H (74-106) mg/dL Calcium (8.5-10.1) mg/dL 04/22/21 04/22/21 04/22/21 Range/Units 06:29 06:29 07:30 WBC 8.2 (4.5-11.0) K/uL RBC 4.01 L (4.30-5.90) M/uL Hgb 7.7 L (12.0-15.0) g/dL Hct 27.0 L (40.0-54.0) % MCV 67 L (80-98) fL MCH 19 L (27-31) pg MCHC 29 L (32-36) % Plt Count 255 (150-400) K/uL Sodium 140 (140-148) mmol/L Potassium 3.9 (3.6-5.2) mmol/L Chloride 108 (100-108) mmol/L Carbon Dioxide 25 (21-32) mmol/L Anion Gap 7.4 (5.0-14.0) mmol/L BUN 23 H (7-18) mg/dL Creatinine 0.8 (0.8-1.3) mg/dL Est Cr Clr Drug Dosing 66.56 mL/min Estimated GFR (MDRD) > 60 (>60) Glucose 123 H (74-106) mg/dL POC Glucose 97 (74-106) mg/dL Calcium 7.8 L (8.5-10.1) mg/dL 04/22/21 Range/Units 11:17 WBC (4.5-11.0) K/uL RBC (4.30-5.90) M/uL Hgb (12.0-15.0) g/dL Hct (40.0-54.0) % MCV (80-98) fL MCH (27-31) pg MCHC (32-36) % Plt Count (150-400) K/uL Sodium (140-148) mmol/L Potassium (3.6-5.2) mmol/L Chloride (100-108) mmol/L Carbon Dioxide (21-32) mmol/L Anion Gap (5.0-14.0) mmol/L BUN (7-18) mg/dL Creatinine (0.8-1.3) mg/dL Est Cr Clr Drug Dosing mL/min Estimated GFR (MDRD) (>60) Glucose (74-106) mg/dL POC Glucose 175 H (74-106) mg/dL Calcium (8.5-10.1) mg/dL Result Diagrams: 04/22/21 06:29 04/22/21 06:29 Joel Results Last 24 hrs: Microbiology 04/20/21 23:00 Aerobic Blood Culture - Preliminary Blood - Arm, Right Anaerobic Blood Culture - Preliminary 04/20/21 23:00 Aerobic Blood Culture - Preliminary Blood - Venous - Iv Start Anaerobic Blood Culture - Preliminary 04/20/21 13:00 Urine Culture - Preliminary Urine, Voided Sepsis Event Note - Evaluation Sepsis Screening Result: No Definite Risk - Focused Exam Vital Signs: Vital Signs Temp Temp Pulse Pulse Resp BP BP 04/22/21 14:28 36.7 C 84 18 123/65 04/22/21 11:21 36.5 C 78 18 113/63 04/22/21 08:15 88 127/60 04/22/21 08:14 127/60 04/22/21 08:02 36.5 C 88 18 127/60 04/22/21 03:36 37.9 C 04/22/21 03:00 38.0 C 95 20 Pulse Ox 04/22/21 14:28 97 04/22/21 11:21 98 04/22/21 08:15 04/22/21 08:14 04/22/21 08:02 90 L 04/22/21 03:36 04/22/21 03:00 94 L - Problem List Review Problem List Initiated/Reviewed/Updated: Yes - My Orders Last 24 Hours: My Active Orders 04/21/21 16:10 Antiembolic Devices [RC] .Routine SCD [Sequential Compression Device] [OM.PC] Routine 04/22/21 13:21 PT Evaluation and Treatment [CONS] Routine 04/22/21 16:30 GLUCOSE POC LAB TO COLLECT JPM [POC] QIDACANDBED 04/22/21 21:00 GLUCOSE POC LAB TO COLLECT JPM [POC] QIDACANDBED 04/23/21 05:00 HGB [HEMOGLOBIN] [HEME] Timed 04/23/21 07:30 GLUCOSE POC LAB TO COLLECT JPM [POC] QIDACANDBED 04/23/21 11:30 GLUCOSE POC LAB TO COLLECT JPM [POC] QIDACANDBED 04/23/21 16:30 GLUCOSE POC LAB TO COLLECT JPM [POC] QIDACANDBED 04/23/21 21:00 GLUCOSE POC LAB TO COLLECT JPM [POC] QIDACANDBED 04/24/21 07:30 GLUCOSE POC LAB TO COLLECT JPM [POC] QIDACANDBED 04/24/21 11:30 GLUCOSE POC LAB TO COLLECT JPM [POC] QIDACANDBED 04/24/21 16:30 GLUCOSE POC LAB TO COLLECT JPM [POC] QIDACANDBED 04/24/21 21:00 GLUCOSE POC LAB TO COLLECT JPM [POC] QIDACANDBED 04/25/21 07:30 GLUCOSE POC LAB TO COLLECT JPM [POC] QIDACANDBED 04/25/21 11:30 GLUCOSE POC LAB TO COLLECT JPM [POC] QIDACANDBED 04/25/21 16:30 GLUCOSE POC LAB TO COLLECT JPM [POC] QIDACANDBED 04/25/21 21:00 GLUCOSE POC LAB TO COLLECT JPM [POC] QIDACANDBED 04/26/21 07:30 GLUCOSE POC LAB TO COLLECT JPM [POC] QIDACANDBED 04/26/21 11:30 GLUCOSE POC LAB TO COLLECT JPM [POC] QIDACANDBED 04/26/21 16:30 GLUCOSE POC LAB TO COLLECT JPM [POC] QIDACANDBED 04/26/21 21:00 GLUCOSE POC LAB TO COLLECT JPM [POC] QIDACANDBED 04/27/21 07:30 GLUCOSE POC LAB TO COLLECT JPM [POC] QIDACANDBED 04/27/21 11:30 GLUCOSE POC LAB TO COLLECT JPM [POC] QIDACANDBED 04/27/21 16:30 GLUCOSE POC LAB TO COLLECT JPM [POC] QIDACANDBED 04/27/21 21:00 GLUCOSE POC LAB TO COLLECT JPM [POC] QIDACANDBED 04/28/21 07:30 GLUCOSE POC LAB TO COLLECT JPM [POC] QIDACANDBED 04/28/21 11:30 GLUCOSE POC LAB TO COLLECT JPM [POC] QIDACANDBED 04/28/21 16:30 GLUCOSE POC LAB TO COLLECT JPM [POC] QIDACANDBED 04/28/21 21:00 GLUCOSE POC LAB TO COLLECT JPM [POC] QIDACANDBED 04/29/21 07:30 GLUCOSE POC LAB TO COLLECT JPM [POC] QIDACANDBED 04/29/21 11:30 GLUCOSE POC LAB TO COLLECT JPM [POC] QIDACANDBED - Plan Plan:: ASSESSMENT AND PLAN - Acute cystitis with complicated urinary tract infection-complicated by sepsis which is now resolved. He has gram-negative bacteremia and a gram-negative norberto in his urine culture but no formal identification as of yet. Clinically improving. -Continue cefepime until culture final -Follow-up urine culture and blood cultures -Saline lock IV fluids Type 2 diabetes mellitus -blood sugars have been controlled so far. -low dose sliding scale coverage -blood glucose checking before meals and evening. 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 Hemoglobin up to 7.7 and stable after transfusion yesterday. -Follow-up hemoglobin in the morning, transfuse if less than 7.5 -Anticipate outpatient iron supplementation with Vitron C Insominia -Melatonin 6 mg at hs prn -Benadryl 25 mg at hs prn Maintenance issues -Nutrition: consistent carb diet -DVT -mechanical with chronic lower GI bleeding Disposition: Anticipate discharge home after the hospital stay Diego Poe MD
[2021-04-22] MEDS ORDERED: Calcium Carbonate 500 MG Tab.Chew PO PRN (19:42)
[2021-04-22] MEDS: Mirtazapine 15 MG Tab PO SCH (20:25)
[2021-04-22] MEDS: DULoxetine 20 MG Cap PO SCH (20:25)
[2021-04-22] MEDS: atorvaSTATin 10 MG Tab PO SCH (20:25)
[2021-04-23] MEDS: Cefepime 1 GM in Sodium Chloride 0.9% 50 ML IV SCH (02:47)
[2021-04-23] MEDS: Insulin Lispro 100 Unit/ML 3 ML KwikPen SUBCUT SCH ×4 (08:12→21:10)
[2021-04-23] MEDS: Levothyroxine 112 MCG Tab PO SCH (08:13)
[2021-04-23] MEDS: Metoprolol Succinate 50 MG Tab.ER PO SCH (08:13)
[2021-04-23] MEDS: Multivitamins with Iron/Calcium/Folic Acid/Minerals Tab PO SCH (08:16)
[2021-04-23] MEDS: Tamsulosin 0.4 MG Cap.ER PO SCH (08:16)
[2021-04-23] MEDS: Levothyroxine 25 MCG Tab PO SCH (08:17)
[2021-04-23] MEDS: Insulin Glargine,Human Rec. Analog 100 Units/ML 3 ML Pen SUBCUT SCH (08:30)
[2021-04-23] MEDS: Ciprofloxacin 500 MG Tab PO SCH ×2 (10:27→21:09)
[2021-04-23] MEDS ORDERED: Calcium Carbonate 500 MG Tab.Chew PO PRN (14:35)
[2021-04-23] MEDS ORDERED: Loperamide 2 MG Cap PO PRN (14:40)
--- NOTE | 2021-04-23 14:40 | PCM.PN ---
- General Info Date of Service: 04/23/21 Subjective Update: No acute events overnight. Patient did have a low-grade fever last night. He is feeling better each day. Appetite is good. Blood sugars have been well controlled. No abdominal pain or nausea. He does have some lower pelvic pain that he thinks is spasms in the bladder or possibly his ureter. Urine culture and blood cultures grew out Klebsiella that was an ESBL. Functional Status: Reports: Pain Controlled, Tolerating Diet - Review of Systems Genitourinary: Reports: Incontinence, Other (bladder spasms ) - Patient Data Vitals - Most Recent: Last Vital Signs Temp 36.6 C 04/23/21 10:59 Pulse 87 04/23/21 10:59 Resp 16 04/23/21 10:59 BP 119/60 04/23/21 10:59 Pulse Ox 92 L 04/23/21 10:59 Weight - Most Recent: 84.822 kg I&O - Last 24 Hours: Intake & Output 04/22/21 04/23/21 04/23/21 22:59 06:59 14:59 Intake Total 360 400 Output Total 400 125 400 Balance -40 275 -400 Lab Results Last 24 Hours: Laboratory Results - last 24 hr 04/22/21 04/22/21 04/23/21 Range/Units 16:21 21:07 04:37 Hgb 8.1 L (12.0-15.0) g/dL POC Glucose 158 H 131 H (74-106) mg/dL 04/23/21 04/23/21 04/23/21 Range/Units 07:22 07:53 11:24 Hgb (12.0-15.0) g/dL POC Glucose 64 L 91 154 H (74-106) mg/dL Joel Results Last 24 Hours: Microbiology 04/20/21 23:00 Aerobic Blood Culture - Final Blood - Arm, Right (Esbl) Klebsiella Pneumoniae Anaerobic Blood Culture - Final (Esbl) Klebsiella Pneumoniae 04/20/21 23:00 Aerobic Blood Culture - Final Blood - Venous - Iv Start (Esbl) Klebsiella Pneumoniae Anaerobic Blood Culture - Final (Esbl) Klebsiella Pneumoniae 04/20/21 13:00 Urine Culture - Final Urine, Voided (Esbl) Klebsiella Pneumoniae Med Orders - Current: Current Medications Acetaminophen (Acetaminophen 325 Mg Tab) 650 mg PO Q4H PRN PRN Reason: Pain (Mild 1-3)/fever Last Admin: 04/22/21 19:40 Dose: 650 mg Documented by: Albuterol (Albuterol 0.083% 2.5 Mg/3 Ml Neb Soln) 2.5 mg NEB Q4H PRN PRN Reason: Shortness Of Breath/wheezing Last Admin: 04/21/21 21:51 Dose: 2.5 mg Documented by: Atorvastatin Calcium (Atorvastatin 10 Mg Tab) 10 mg PO BEDTIME [facility] Last Admin: 04/22/21 20:25 Dose: 10 mg Documented by: Bisacodyl (Bisacodyl 5 Mg Tab) 5 mg PO DAILY PRN PRN Reason: Constipation Calcium Carbonate/Glycine (Calcium Carbonate 500 Mg Tab.Chew) 1,000 mg PO Q2H PRN PRN Reason: Indigestion Ciprofloxacin (Ciprofloxacin 500 Mg Tab) 500 mg PO BID [facility] Last Admin: 04/23/21 10:27 Dose: 500 mg Documented by: Diphenhydramine HCl (Diphenhydramine 25 Mg Cap) 25 mg PO BEDTIME PRN PRN Reason: Insomnia Docusate Sodium (Docusate Sodium 100 Mg Cap) 100 mg PO BID PRN PRN Reason: Constipation Duloxetine HCl (Duloxetine 20 Mg Cap) 20 mg PO BEDTIME [facility] Last Admin: 04/22/21 20:25 Dose: 20 mg Documented by: Insulin Glargine (Insulin Glargine,Human Rec. Analog 100 Units/Ml 3 Ml Pen) 52 units SUBCUT DAILY [facility] Last Admin: 04/23/21 08:30 Dose: 52 units Documented by: Insulin Human Lispro (Insulin Lispro 100 Unit/Ml 3 Ml Kwikpen) 0 unit SUBCUT QIDACANDBED [facility]; Protocol Last Admin: 04/23/21 12:32 Dose: 1 unit Documented by: Levothyroxine Sodium (Levothyroxine 112 Mcg Tab) 112 mcg PO ACBREAKFAST [facility] Last Admin: 04/23/21 08:13 Dose: 112 mcg Documented by: Levothyroxine Sodium (Levothyroxine 25 Mcg Tab) 25 mcg PO ACBREAKFAST [facility] Last Admin: 04/23/21 08:17 Dose: 25 mcg Documented by: Melatonin (Melatonin 3 Mg Tab) 6 mg PO BEDTIME PRN PRN Reason: Insomnia Last Admin: 04/21/21 23:02 Dose: 6 mg Documented by: Metoprolol Succinate (Metoprolol Succinate 50 Mg Tab.Er) 50 mg PO DAILY [facility] Last Admin: 04/23/21 08:13 Dose: 50 mg Documented by: Mirtazapine (Mirtazapine 15 Mg Tab) 15 mg PO BEDTIME [facility] Last Admin: 04/22/21 20:25 Dose: 15 mg Documented by: Morphine Sulfate (Morphine 2 Mg/Ml Syringe) 2 mg IVPUSH Q2H PRN PRN Reason: Pain (severe 7-10) Multivitamins/Minerals (Multivitamins With Iron/Calcium/Folic Acid/Minerals Tab) 1 tab PO DAILY [facility] Last Admin: 04/23/21 08:16 Dose: 1 tab Documented by: Ondansetron HCl (Ondansetron 4 Mg Tab.Dis) 4 mg PO Q6H PRN PRN Reason: Nausea able to take PO Ondansetron HCl (Ondansetron 4 Mg/2 Ml Sdv) 4 mg IV Q4H PRN PRN Reason: Nausea/Vomiting Oxycodone HCl (Oxycodone 5 Mg Tab) 5 mg PO Q4H PRN PRN Reason: Pain (moderate 4-6) Trulicity 0.75mg * (Ptom*) 0 each SUBCUT Esquivel@0900 [facility] Phenazopyridine HCl (Phenazopyridine 95 Mg Tab) 190 mg PO Q12H PRN PRN Reason: Abdominal Pain Ramipril (Ramipril 2.5 Mg Cap) 2.5 mg PO DAILY [facility] Last Admin: 04/23/21 08:16 Dose: 2.5 mg Documented by: Sodium Chloride (Sodium Chloride 0.9% 10 Ml Syringe) 10 ml FLUSH ASDIRECTED PRN PRN Reason: Keep Vein Open Last Admin: 04/20/21 23:04 Dose: 10 ml Documented by: Tamsulosin HCl (Tamsulosin 0.4 Mg Cap.Er) 0.4 mg PO DAILY [facility] Last Admin: 04/23/21 08:16 Dose: 0.4 mg Documented by: Discontinued Medications Calcium Carbonate/Glycine (Calcium Carbonate 500 Mg Tab.Chew) 500 mg PO Q2H PRN PRN Reason: Indigestion Last Admin: 04/22/21 20:23 Dose: 500 mg Documented by: Enoxaparin Sodium (Enoxaparin 40 Mg/0.4 Ml Syringe) 40 mg SUBCUT DAILY [facility] Last Admin: 04/21/21 08:40 Dose: 40 mg Documented by: Sodium Chloride (Normal Saline) 1,000 mls @ 999 mls/hr IV BOLUS ONE; Protocol Stop: 04/21/21 01:10 Last Admin: 04/21/21 00:55 Dose: 999 mls/hr Documented by: Vancomycin HCl 1 gm/ Sodium (Chloride) 250 mls @ 167 mls/hr IV STAT ONE Stop: 04/21/21 01:39 Last Admin: 04/21/21 02:26 Dose: 167 mls/hr Documented by: Ceftriaxone Sodium 1 gm/ (Sodium Chloride) 50 mls @ 100 mls/hr IV STAT ONE Stop: 04/21/21 00:39 Last Admin: 04/21/21 00:55 Dose: 100 mls/hr Documented by: Sterile Water (Sterile Water For Injection) Confirm Administered Dose 10 mls @ as directed .ROUTE .STK-MED ONE Stop: 04/21/21 00:35 Last Admin: 04/21/21 03:45 Dose: Not Given Documented by: Sterile Water (Sterile Water For Injection) Confirm Administered Dose 20 mls @ as directed .ROUTE .STK-MED ONE Stop: 04/21/21 01:01 Last Admin: 04/21/21 03:46 Dose: Not Given Documented by: Cefepime HCl 2 gm/ Sodium (Chloride) 50 mls @ 100 mls/hr IV ONETIME ONE Stop: 04/21/21 01:54 Last Admin: 04/21/21 04:17 Dose: Not Given Documented by: Cefepime HCl 1 gm/ Sodium (Chloride) 50 mls @ 100 mls/hr IV Q12H [facility] Last Admin: 04/21/21 01:49 Dose: 100 mls/hr Documented by: Sodium Chloride (Normal Saline) 1,000 mls @ 125 mls/hr IV ASDIRECTED [facility] Last Admin: 04/21/21 03:56 Dose: 125 mls/hr Documented by: Vancomycin HCl 1.25 gm/ Sodium (Chloride) 250 mls @ 166.667 mls/hr IV Q24H [facility] Cefepime HCl 1 gm/ Sodium (Chloride) 50 mls @ 100 mls/hr IV Q12H [facility] Last Admin: 04/23/21 02:47 Dose: 100 mls/hr Documented by: Ketorolac Tromethamine (Ketorolac 30 Mg/Ml Sdv) 30 mg IVPUSH ONETIME ONE Stop: 04/21/21 10:56 Last Admin: 04/21/21 11:11 Dose: 30 mg Documented by: Sodium Chloride (Sodium Chloride 0.9% 10 Ml Syringe) 10 ml FLUSH ASDIRECTED PRN PRN Reason: Keep Vein Open Vancomycin HCl (Vancomycin 1 Gm Sdv) 0 gm IV .PHARMACY TO DOSE ROSIBEL Stop: 04/21/21 10:00 - Exam Quality Assessment: No: Supplemental Oxygen General: Alert, Oriented, Cooperative, No Acute Distress Lungs: Normal Respiratory Effort GI/Abdominal Exam: Soft, No Distention Extremities: No Pedal Edema Psy/Mental Status: Alert, Normal Affect - Patient Data Lab Results Last 24 hrs: Laboratory Results - last 24 hr 04/22/21 04/22/21 04/23/21 Range/Units 16:21 21:07 04:37 Hgb 8.1 L (12.0-15.0) g/dL POC Glucose 158 H 131 H (74-106) mg/dL 04/23/21 04/23/21 04/23/21 Range/Units 07:22 07:53 11:24 Hgb (12.0-15.0) g/dL POC Glucose 64 L 91 154 H (74-106) mg/dL Result Diagrams: 04/23/21 04:37 04/22/21 06:29 Joel Results Last 24 hrs: Microbiology 04/20/21 23:00 Aerobic Blood Culture - Final Blood - Arm, Right (Esbl) Klebsiella Pneumoniae Anaerobic Blood Culture - Final (Esbl) Klebsiella Pneumoniae 04/20/21 23:00 Aerobic Blood Culture - Final Blood - Venous - Iv Start (Esbl) Klebsiella Pneumoniae Anaerobic Blood Culture - Final (Esbl) Klebsiella Pneumoniae 04/20/21 13:00 Urine Culture - Final Urine, Voided (Esbl) Klebsiella Pneumoniae Sepsis Event Note - Evaluation Sepsis Screening Result: No Definite Risk - Focused Exam Vital Signs: Vital Signs Temp Temp Pulse Pulse Resp BP BP 04/23/21 10:59 36.6 C 87 16 119/60 04/23/21 08:16 127/60 04/23/21 08:13 71 127/60 04/23/21 07:00 36.4 C 71 18 127/60 04/23/21 03:00 36.2 C 77 18 127/71 Pulse Ox 04/23/21 10:59 92 L 04/23/21 08:16 04/23/21 08:13 04/23/21 07:00 95 04/23/21 03:00 94 L - Problem List Review Problem List Initiated/Reviewed/Updated: Yes - My Orders Last 24 Hours: My Active Orders 04/23/21 09:00 Ciprofloxacin [Ciprofloxacin HCl] 500 mg PO BID 04/23/21 14:35 Calcium Carbonate [Tums] 1,000 mg PO Q2H PRN 04/23/21 16:30 GLUCOSE POC LAB TO COLLECT JPM [POC] QIDACANDBED 04/23/21 21:00 GLUCOSE POC LAB TO COLLECT JPM [POC] QIDACANDBED 04/24/21 07:30 GLUCOSE POC LAB TO COLLECT JPM [POC] QIDACANDBED 04/24/21 11:30 GLUCOSE POC LAB TO COLLECT JPM [POC] QIDACANDBED 04/24/21 16:30 GLUCOSE POC LAB TO COLLECT JPM [POC] QIDACANDBED 04/24/21 21:00 GLUCOSE POC LAB TO COLLECT JPM [POC] QIDACANDBED 04/25/21 07:30 GLUCOSE POC LAB TO COLLECT JPM [POC] QIDACANDBED 04/25/21 11:30 GLUCOSE POC LAB TO COLLECT JPM [POC] QIDACANDBED 04/25/21 16:30 GLUCOSE POC LAB TO COLLECT JPM [POC] QIDACANDBED 04/25/21 21:00 GLUCOSE POC LAB TO COLLECT JPM [POC] QIDACANDBED 04/26/21 07:30 GLUCOSE POC LAB TO COLLECT JPM [POC] QIDACANDBED 04/26/21 11:30 GLUCOSE POC LAB TO COLLECT JPM [POC] QIDACANDBED 04/26/21 16:30 GLUCOSE POC LAB TO COLLECT JPM [POC] QIDACANDBED 04/26/21 21:00 GLUCOSE POC LAB TO COLLECT JPM [POC] QIDACANDBED 04/27/21 07:30 GLUCOSE POC LAB TO COLLECT JPM [POC] QIDACANDBED 04/27/21 11:30 GLUCOSE POC LAB TO COLLECT JPM [POC] QIDACANDBED 04/27/21 16:30 GLUCOSE POC LAB TO COLLECT JPM [POC] QIDACANDBED 04/27/21 21:00 GLUCOSE POC LAB TO COLLECT JPM [POC] QIDACANDBED 04/28/21 07:30 GLUCOSE POC LAB TO COLLECT JPM [POC] QIDACANDBED 04/28/21 11:30 GLUCOSE POC LAB TO COLLECT JPM [POC] QIDACANDBED 04/28/21 16:30 GLUCOSE POC LAB TO COLLECT JPM [POC] QIDACANDBED 04/28/21 21:00 GLUCOSE POC LAB TO COLLECT JPM [POC] QIDACANDBED 04/29/21 07:30 GLUCOSE POC LAB TO COLLECT JPM [POC] QIDACANDBED 04/29/21 11:30 GLUCOSE POC LAB TO COLLECT JPM [POC] QIDACANDBED - Plan Plan:: ASSESSMENT AND PLAN - Acute cystitis with complicated urinary tract infection-complicated by sepsis which is now resolved. Cultures grew out ESBL Klebsiella. Doing well other than low-grade fever last night. -Change antibiotics to Cipro, plan for 1 week of treatment -Saline lock IV fluids Type 2 diabetes mellitus -blood sugars have been controlled so far. -low dose sliding scale coverage -blood glucose checking before meals and evening. 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 Hemoglobin stable. -hemoglobin in the morning, transfuse if less than 7.5 -Anticipate outpatient iron supplementation with Vitron C Insominia -Melatonin 6 mg at hs prn -Benadryl 25 mg at hs prn Maintenance issues -Nutrition: consistent carb diet -DVT -mechanical with chronic lower GI bleeding Disposition: Anticipate discharge home after the hospital stay, likely tomorrow if stable overnight Diego Poe MD
[2021-04-23] MEDS ORDERED: Loperamide 2 MG Cap PO ONE (20:48)
[2021-04-23] MEDS: atorvaSTATin 10 MG Tab PO SCH (21:09)
[2021-04-23] MEDS: Mirtazapine 15 MG Tab PO SCH (21:09)
[2021-04-23] MEDS: DULoxetine 20 MG Cap PO SCH (21:09)
[2021-04-23] MEDS: Melatonin 3 MG Tab PO PRN (21:10)
[2021-04-24] MEDS: Levothyroxine 112 MCG Tab PO SCH (07:48)
[2021-04-24] MEDS: Levothyroxine 25 MCG Tab PO SCH (07:48)
[2021-04-24] MEDS: Insulin Lispro 100 Unit/ML 3 ML KwikPen SUBCUT SCH ×2 (07:50→11:29)
[2021-04-24] MEDS ORDERED: Lactobacillus Rhamnosus GG (Probiotic) Cap PO SCH (09:15)
[2021-04-24] MEDS: Ciprofloxacin 500 MG Tab PO SCH (09:28)
[2021-04-24] MEDS: Tamsulosin 0.4 MG Cap.ER PO SCH (09:28)
[2021-04-24] MEDS: Metoprolol Succinate 50 MG Tab.ER PO SCH (09:32)
[2021-04-24] MEDS: Multivitamins with Iron/Calcium/Folic Acid/Minerals Tab PO SCH (09:32)
[2021-04-24] MEDS: Insulin Glargine,Human Rec. Analog 100 Units/ML 3 ML Pen SUBCUT SCH (09:41)
--- NOTE | 2021-04-24 12:02 | PCM.DCSUM1 ---
Discharge Summary - Hospital Course Brief History: 81-year-old male with history of recent left ureter stenting because of renal calculus, insulin-dependent type 2 diabetes mellitus who presented with fevers and shaking chills. He was admitted for management of a complicated urinary tract infection with sepsis. Diagnosis: Stroke: No - Discharge Data Discharge Date: 04/24/21 Discharge Disposition: Home, Self-Care 01 Condition: Good - Referral to Home Health Primary Care Physician: Norman Lamb MD - Discharge Diagnosis/Problem(s) (1) Complicated urinary tract infection SNOMED Code(s): 45241726 ICD Code: N39.0 - URINARY TRACT INFECTION, SITE NOT SPECIFIED Status: Acute (2) Sepsis SNOMED Code(s): 02213000 ICD Code: A41.9 - SEPSIS, UNSPECIFIED ORGANISM Status: Acute Priority: High Qualifiers: Sepsis type: sepsis due to unspecified organism Sepsis acute organ dysfunction status: without acute organ dysfunction Qualified Code(s): A41.9 - Sepsis, unspecified organism (3) Hydronephrosis of left kidney SNOMED Code(s): 11414601 ICD Code: N13.30 - UNSPECIFIED HYDRONEPHROSIS Status: Acute Priority: High (4) Chronic anemia SNOMED Code(s): 993480275 ICD Code: D64.9 - ANEMIA, UNSPECIFIED Status: Chronic (5) Radiation induced proctitis SNOMED Code(s): 916530931 ICD Code: K62.7 - RADIATION PROCTITIS Status: Chronic Priority: High (6) Diabetes mellitus SNOMED Code(s): 20759154 ICD Code: E11.9 - TYPE 2 DIABETES MELLITUS WITHOUT COMPLICATIONS Status: Chronic Priority: High Qualifiers: Diabetes mellitus type: type 2 Diabetes mellitus correction insulin use: with correction use Diabetes mellitus complication status: with other specified complication Qualified Code(s): E11.69 - Type 2 diabetes mellitus with other specified complication; Z79.4 - assisted (current) use of insulin - Patient Summary/Data Consults: Consultations 04/21/21 03:09 Consult to Spiritual Care [CONS] Routine 04/22/21 13:21 PT Evaluation and Treatment [CONS] Routine Please Evaluate and Treat. PT Reason for Consult: Strengthening Pending Discharge: Yes Discharge Disposition: Home Special Instructions: possible home health if needed This query below is only for informational purposes and is not editable. Admission Diagnosis/Problem: Urosepsis Hospital Course: Eduard presented to the emergency room with weakness, shaking chills and fever. He had been in the emergency room earlier and diagnosed with a urinary tract infection but wanted to try it at home. Unfortunately after going home he had episodes of fever as well as rigors and was brought back to the emergency room. Work-up at that time was suggestive of sepsis with tachycardia and lactic acidosis. He was started on broad-spectrum antibiotic therapy given recent stent placement for a ureteral stricture or stone. He received IV fluids overnight. By the next morning his urine culture as well as all 4 blood culture bottles were growing gram-negative rods. His sepsis resolved with normalization of his lactic acidosis and tachycardia. Symptomatically he was feeling better but continued to have fevers. Over the next couple of days he appeared stable to improving but did continue to have some low-grade fevers. Eventually his urine culture and all 4 blood cultures returned with a Klebsiella species that was not ESBL. Antibiotic sensitivities were limited to the Carbapenem's as well as fluoroquinolones. Since he was doing well clinically and had no evidence for hemodynamic compromise we started him on the ciprofloxacin. We monitored an additional 24 hours after this antibiotic was started. He has not had any fevers. He has continued to improve with improving appetite and strength. His white count has remained normal. He did have some bladder spasms the day before discharge but these have resolved. He feels well enough to go home at this time. The plan is for him to be on Cipro for 1 more week. We did try to contact his urologist to discuss stent removal timing. They will be contacting him early next week to set up a date for the procedure to remove the stent from his left ureter. - Patient Instructions Diet: Diabetic Diet Activity: As Tolerated Showering/Bathing: May Shower Notify Provider of: Fever Other/Special Instructions: 1. You were in the hospital for management of a complicated urinary tract infection caused by a Klebsiella that was particularly resistant to antibiotics. This version of the Klebsiella is known as an extended spectrum beta-lactamase (ESBL). This bacteria is sensitive to a very limited number of antibiotics and our only oral option at this time is ciprofloxacin. I recommend that she take 500 mg twice daily for 1 week. You should continue to drink plenty of water to flush out the urinary tract. Because of the antibiotic use I would recommend that you use a probiotic capsule or yogurt once or twice daily for the next 2 to 4 weeks. This will help maintain good bacteria in your intestine and reduce the risk of antibiotic associated diarrhea. The urology clinic will be contacting you early next week to set up a time for the procedure to remove the stent from your left ureter. 2. Continue your other medications as previously prescribed. 3. Follow-up with your primary care provider in 1 to 2 weeks to ensure that you continue to do well after hospital discharge - Discharge Plan *PRESCRIPTION DRUG MONITORING PROGRAM REVIEWED*: Not Applicable *COPY OF PRESCRIPTION DRUG MONITORING REPORT IN PATIENT KATINA: Not Applicable Prescriptions/Med Rec: Ciprofloxacin [Ciprofloxacin HCl] 500 mg PO BID #14 tablet Home Medications: Home Meds Multivitamin with Minerals [Multiple Vitamin] 1 tab PO DAILY 06/18/13 [History] Simvastatin [Zocor] 20 mg PO DAILY 06/18/13 [History] metFORMIN [Glucophage XR] 1,000 mg PO BID 06/18/13 [History] ramipriL [Altace] 2.5 mg PO DAILY 06/18/13 [History] Levothyroxine 137 mcg PO DAILY 06/19/13 [History] DULoxetine [Cymbalta] 20 mg PO DAILY 02/03/20 [History] Dulaglutide [Trulicity] 0.75 mg SQ ASDIRECTED 02/03/20 [History] Metoprolol Succinate 50 mg PO DAILY 02/03/20 [History] Mirtazapine 15 mg PO BEDTIME 02/03/20 [History] Omeprazole 1 tab PO DAILY 02/16/20 [History] Aspirin [Halfprin] 81 mg PO DAILY 03/02/21 [History] Insulin Degludec [Tresiba] 52 unit SUBCUT DAILY 03/02/21 [History] Ketorolac [Toradol] 10 mg PO Q6H PRN #20 tab 03/17/21 [Rx] Tamsulosin HCl [Flomax] 0.4 mg PO DAILY 04/20/21 [History] Ciprofloxacin [Ciprofloxacin HCl] 500 mg PO BID #14 tablet 04/24/21 [Rx] Oxygen Therapy Mode: Room Air Patient Handouts: Fall Prevention in the Home, Adult, [id number], ESBL Infection, Urinary Tract Infection, Adult, [id number], Ciprofloxacin tablets Referrals: Maria A Salinas MD [Ordering Only Provider] - (Dr. Salinas's office was contacted to schedule an appointment for stent removal. Dr. Swenson's nurse will contact you with date and time of appointment. [facility] phone number is [phone]. Discharge summary was faxed to Dr. Swenson's office.) - Discharge Summary/Plan Comment DC Time >30 min.: Yes Total # of Minutes for Discharge Time: 40-coordinating follow up with Urology - Patient Data Vitals - Most Recent: Last Vital Signs Temp 35.6 C L 04/24/21 07:42 Pulse 75 04/24/21 09:32 Resp 18 04/24/21 07:42 BP 128/60 04/24/21 09:32 Pulse Ox 91 L 04/24/21 07:42 Weight - Most Recent: 84.822 kg I&O - Last 24 hours: Intake & Output 04/23/21 04/24/21 04/24/21 22:59 06:59 14:59 Intake Total 120 240 Balance 120 240 Lab Results - Last 24 hrs: Laboratory Results - last 24 hr 04/23/21 04/23/21 04/24/21 Range/Units 16:39 20:58 07:21 POC Glucose 133 H 163 H 124 H (74-106) mg/dL 04/24/21 Range/Units 11:24 POC Glucose 108 H (74-106) mg/dL JANENE Results - Last 24 hrs: Microbiology 04/20/21 23:00 Aerobic Blood Culture - Final Blood - Arm, Right (Esbl) Klebsiella Pneumoniae Anaerobic Blood Culture - Final (Esbl) Klebsiella Pneumoniae 04/20/21 23:00 Aerobic Blood Culture - Final Blood - Venous - Iv Start (Esbl) Klebsiella Pneumoniae Anaerobic Blood Culture - Final (Esbl) Klebsiella Pneumoniae 04/20/21 13:00 Urine Culture - Final Urine, Voided (Esbl) Klebsiella Pneumoniae Med Orders - Current: Current Medications Acetaminophen (Acetaminophen 325 Mg Tab) 650 mg PO Q4H PRN PRN Reason: Pain (Mild 1-3)/fever Last Admin: 04/22/21 19:40 Dose: 650 mg Documented by: Albuterol (Albuterol 0.083% 2.5 Mg/3 Ml Neb Soln) 2.5 mg NEB Q4H PRN PRN Reason: Shortness Of Breath/wheezing Last Admin: 04/21/21 21:51 Dose: 2.5 mg Documented by: Atorvastatin Calcium (Atorvastatin 10 Mg Tab) 10 mg PO BEDTIME [facility] Last Admin: 04/23/21 21:09 Dose: 10 mg Documented by: Bisacodyl (Bisacodyl 5 Mg Tab) 5 mg PO DAILY PRN PRN Reason: Constipation Calcium Carbonate/Glycine (Calcium Carbonate 500 Mg Tab.Chew) 1,000 mg PO Q2H PRN PRN Reason: Indigestion Ciprofloxacin (Ciprofloxacin 500 Mg Tab) 500 mg PO BID [facility] Last Admin: 04/24/21 09:28 Dose: 500 mg Documented by: Diphenhydramine HCl (Diphenhydramine 25 Mg Cap) 25 mg PO BEDTIME PRN PRN Reason: Insomnia Docusate Sodium (Docusate Sodium 100 Mg Cap) 100 mg PO BID PRN PRN Reason: Constipation Duloxetine HCl (Duloxetine 20 Mg Cap) 20 mg PO BEDTIME [facility] Last Admin: 04/23/21 21:09 Dose: 20 mg Documented by: Insulin Glargine (Insulin Glargine,Human Rec. Analog 100 Units/Ml 3 Ml Pen) 52 units SUBCUT DAILY [facility] Last Admin: 04/24/21 09:41 Dose: 52 units Documented by: Insulin Human Lispro (Insulin Lispro 100 Unit/Ml 3 Ml Kwikpen) 0 unit SUBCUT QIDACANDBED [facility]; Protocol Last Admin: 04/24/21 11:29 Dose: Not Given Documented by: Lactobacillus Rhamnosus (Lactobacillus Rhamnosus Gg (Probiotic) Cap) 1 cap PO BID [facility] Last Admin: 04/24/21 10:57 Dose: 1 cap Documented by: Levothyroxine Sodium (Levothyroxine 112 Mcg Tab) 112 mcg PO ACBREAKFAST [facility] Last Admin: 04/24/21 07:48 Dose: 112 mcg Documented by: Levothyroxine Sodium (Levothyroxine 25 Mcg Tab) 25 mcg PO ACBREAKFAST [facility] Last Admin: 04/24/21 07:48 Dose: 25 mcg Documented by: Loperamide HCl (Loperamide 2 Mg Cap) 2 mg PO Q4H PRN PRN Reason: Diarrhea Last Admin: 04/23/21 16:59 Dose: 2 mg Documented by: Melatonin (Melatonin 3 Mg Tab) 6 mg PO BEDTIME PRN PRN Reason: Insomnia Last Admin: 04/23/21 21:10 Dose: 6 mg Documented by: Metoprolol Succinate (Metoprolol Succinate 50 Mg Tab.Er) 50 mg PO DAILY [facility] Last Admin: 04/24/21 09:32 Dose: 50 mg Documented by: Mirtazapine (Mirtazapine 15 Mg Tab) 15 mg PO BEDTIME [facility] Last Admin: 04/23/21 21:09 Dose: 15 mg Documented by: Morphine Sulfate (Morphine 2 Mg/Ml Syringe) 2 mg IVPUSH Q2H PRN PRN Reason: Pain (severe 7-10) Multivitamins/Minerals (Multivitamins With Iron/Calcium/Folic Acid/Minerals Tab) 1 tab PO DAILY [facility] Last Admin: 04/24/21 09:32 Dose: 1 tab Documented by: Ondansetron HCl (Ondansetron 4 Mg Tab.Dis) 4 mg PO Q6H PRN PRN Reason: Nausea able to take PO Ondansetron HCl (Ondansetron 4 Mg/2 Ml Sdv) 4 mg IV Q4H PRN PRN Reason: Nausea/Vomiting Oxycodone HCl (Oxycodone 5 Mg Tab) 5 mg PO Q4H PRN PRN Reason: Pain (moderate 4-6) Trulicity 0.75mg * (Ptom*) 0 each SUBCUT Esquivel@0900 [facility] Phenazopyridine HCl (Phenazopyridine 95 Mg Tab) 190 mg PO Q12H PRN PRN Reason: Abdominal Pain Ramipril (Ramipril 2.5 Mg Cap) 2.5 mg PO DAILY [facility] Last Admin: 04/24/21 09:28 Dose: 2.5 mg Documented by: Sodium Chloride (Sodium Chloride 0.9% 10 Ml Syringe) 10 ml FLUSH ASDIRECTED PRN PRN Reason: Keep Vein Open Last Admin: 04/20/21 23:04 Dose: 10 ml Documented by: Tamsulosin HCl (Tamsulosin 0.4 Mg Cap.Er) 0.4 mg PO DAILY [facility] Last Admin: 04/24/21 09:28 Dose: 0.4 mg Documented by: Discontinued Medications Calcium Carbonate/Glycine (Calcium Carbonate 500 Mg Tab.Chew) 500 mg PO Q2H PRN PRN Reason: Indigestion Last Admin: 04/22/21 20:23 Dose: 500 mg Documented by: Enoxaparin Sodium (Enoxaparin 40 Mg/0.4 Ml Syringe) 40 mg SUBCUT DAILY [facility] Last Admin: 04/21/21 08:40 Dose: 40 mg Documented by: Sodium Chloride (Normal Saline) 1,000 mls @ 999 mls/hr IV BOLUS ONE; Protocol Stop: 04/21/21 01:10 Last Admin: 04/21/21 00:55 Dose: 999 mls/hr Documented by: Vancomycin HCl 1 gm/ Sodium (Chloride) 250 mls @ 167 mls/hr IV STAT ONE Stop: 04/21/21 01:39 Last Admin: 04/21/21 02:26 Dose: 167 mls/hr Documented by: Ceftriaxone Sodium 1 gm/ (Sodium Chloride) 50 mls @ 100 mls/hr IV STAT ONE Stop: 04/21/21 00:39 Last Admin: 04/21/21 00:55 Dose: 100 mls/hr Documented by: Sterile Water (Sterile Water For Injection) Confirm Administered Dose 10 mls @ as directed .ROUTE .STK-MED ONE Stop: 04/21/21 00:35 Last Admin: 04/21/21 03:45 Dose: Not Given Documented by: Sterile Water (Sterile Water For Injection) Confirm Administered Dose 20 mls @ as directed .ROUTE .STK-MED ONE Stop: 04/21/21 01:01 Last Admin: 04/21/21 03:46 Dose: Not Given Documented by: Cefepime HCl 2 gm/ Sodium (Chloride) 50 mls @ 100 mls/hr IV ONETIME ONE Stop: 04/21/21 01:54 Last Admin: 04/21/21 04:17 Dose: Not Given Documented by: Cefepime HCl 1 gm/ Sodium (Chloride) 50 mls @ 100 mls/hr IV Q12H [facility] Last Admin: 04/21/21 01:49 Dose: 100 mls/hr Documented by: Sodium Chloride (Normal Saline) 1,000 mls @ 125 mls/hr IV ASDIRECTED [facility] Last Admin: 04/21/21 03:56 Dose: 125 mls/hr Documented by: Vancomycin HCl 1.25 gm/ Sodium (Chloride) 250 mls @ 166.667 mls/hr IV Q24H ROSIBEL Cefepime HCl 1 gm/ Sodium (Chloride) 50 mls @ 100 mls/hr IV Q12H [facility] Last Admin: 04/23/21 02:47 Dose: 100 mls/hr Documented by: Ketorolac Tromethamine (Ketorolac 30 Mg/Ml Sdv) 30 mg IVPUSH ONETIME ONE Stop: 04/21/21 10:56 Last Admin: 04/21/21 11:11 Dose: 30 mg Documented by: Loperamide HCl (Loperamide 2 Mg Cap) 2 mg PO ONETIME ONE Stop: 04/23/21 20:49 Last Admin: 04/23/21 21:11 Dose: 2 mg Documented by: Sodium Chloride (Sodium Chloride 0.9% 10 Ml Syringe) 10 ml FLUSH ASDIRECTED PRN PRN Reason: Keep Vein Open Vancomycin HCl (Vancomycin 1 Gm Sdv) 0 gm IV .PHARMACY TO DOSE ROSIBEL Stop: 04/21/21 10:00
[2021-04-26] MEDS ORDERED: TRULICITY 0.75 MG SUBCUT SCH (09:00)
== END 2021-04-24 13:30 | disposition home or self-care (01) | DRG 872 ==
LOC: JP.ED 22:40 → JP.MS 04-21 01:56
PROVIDERS: ADMIT Internal Medicine; ATTEND Internal Medicine
DX: A41.59 Other Gram-negative sepsis (principal); N13.6 Pyonephrosis; A41.9 Sepsis, unspecified organism; D64.9 Anemia, unspecified; N30.01 Acute cystitis with hematuria; Z66 Do not resuscitate; K62.7 Radiation proctitis; G47.00 Insomnia, unspecified; D50.0 Iron deficiency anemia secondary to blood loss (chronic); H91.90 Unspecified hearing loss, unspecified ear; I25.10 Atherosclerotic heart disease of native coronary artery without angina pectoris; I10 Essential (primary) hypertension; E78.00 Pure hypercholesterolemia, unspecified; I25.2 Old myocardial infarction; K21.9 Gastro-esophageal reflux disease without esophagitis; Z86.19 Personal history of other infectious and parasitic diseases; M19.90 Unspecified osteoarthritis, unspecified site; E11.9 Type 2 diabetes mellitus without complications; Z85.46 Personal history of malignant neoplasm of prostate; Z85.850 Personal history of malignant neoplasm of thyroid; Z91.09 Other allergy status, other than to drugs and biological substances; Z90.89 Acquired absence of other organs; Z98.890 Other specified postprocedural states; Z91.048 Other nonmedicinal substance allergy status; Z79.82 Long term (current) use of aspirin; Z79.890 Hormone replacement therapy; Z79.4 Long term (current) use of insulin; Z79.899 Other long term (current) drug therapy; Z20.822 Contact with and (suspected) exposure to COVID-19
CPT/HCPCS: 0241U; 36415; 36430; 71045; 74176; 80048; 80053; 82947; 83605; 85018; 85025; 85027; 86140; 86850; 86900; 86901; 86920; 86922; 87040; 87077; 87086; 87088; 87186; 94640; 96365; 96367; 97110; 97162; 97530; 97535; 99285; A9270-GY; J0692; J0696; J1650; J1815; J1815-GY; J1885; J3370; J7030; J7050; P9016

== ENCOUNTER 2024-08-25 16:18 | Emergency (ER) | payer MEDICARE, OTHER ==
[2024-08-25 17:02] LABS: BASOPHILS ABSOLUTE AUTO 0.06 K/uL (0.00-0.10); BASOPHILS PERCENT AUTO 0.5 % (0.1-1.3); EOSINOPHILS ABSOLUTE AUTO 0.19 K/uL (0.00-0.40); EOSINOPHILS PERCENT AUTO 1.5 % (0.0-5.4); HEMATOCRIT 47.4 % (38.4-49.7); HEMOGLOBIN 15.8 g/dL (12.9-16.9); IMMATURE GRAN ABSOLUTE AUTO 0.05 K/uL (0.00-0.23); IMMATURE GRAN PERCENT AUTO 0.4 % (0.0-0.7); LYMPHOCYTES ABSOLUTE AUTO 1.21 K/uL (0.8-3.3); LYMPHOCYTES PERCENT AUTO 9.4 % (11.4-47.7); MEAN CORPUSCULAR HEMOGLOBIN 30.1 pg (31.6-35.5); MEAN CORPUSCULAR HGB CONC 33.3 g/dL (31.6-35.5); MEAN CORPUSCULAR VOLUME 90.3 fL (81.4-99.0); MONOCYTES ABSOLUTE AUTO 1.14 K/uL (0.20-0.90); MONOCYTES PERCENT AUTO 8.9 % (3.3-12.6); NEUTROPHILS ABSOLUTE AUTO 10.23 K/uL (1.0-7.6); NEUTROPHILS PERCENT AUTO 79.3 % (40.0-78.1); PLATELET COUNT,PLT 227 K/uL (130-375); RED BLOOD CELL COUNT 5.25 M/uL (4.14-5.76); WHITE BLOOD CELL COUNT,WBC 12.9 K/uL (3.2-11.0)
[2024-08-25 17:23] LABS: A/G RATIO 1.2 (1.2-2.2); ALANINE AMINOTRANSFERASE,ALT 40 U/L (12-78); ALBUMIN 3.5 g/dL (3.4-5.0); ALKALINE PHOSPHATASE 101 U/L (46-116); ANION GAP 9.6 mmol/L (5.0-14.0); ASPARTATE AMNIOTRANSFERASE,AST 25 U/L (15-37); BILIRUBIN TOTAL 0.6 mg/dL (0.2-1.0); BLOOD UREA NITROGEN,BUN 20 mg/dL (7-18); CALCIUM 9.2 mg/dL (8.5-10.1); CARBON DIOXIDE,CO2 27 mmol/L (21-32); CHLORIDE,CL 105 mmol/L (100-108); EST CRCL DRUG DOSING (CG) 50.49 mL/min; ESTIMATED GFR 74 mL/min (>60); GLUCOSE RANDOM 148 mg/dL (74-106); POTASSIUM,K 4.7 mmol/L (3.6-5.2); PROTEIN TOTAL,TP 6.5 g/dL (6.4-8.2); SODIUM,NA 142 mmol/L (140-148)
[2024-08-25] MEDS: Morphine 2 MG/ML SYRINGE IVPUSH ONE ×2 (18:24→19:09)
[2024-08-25] MEDS ORDERED: Naloxone 0.4 MG/ML SDV IVPUSH PRN (18:57)
== END 2024-08-25 19:20 ==
LOC: JP.ED 16:18
DX: S72.011A Unspecified intracapsular fracture of right femur, initial encounter for closed fracture (principal); I10 Essential (primary) hypertension; I25.2 Old myocardial infarction; I25.10 Atherosclerotic heart disease of native coronary artery without angina pectoris; E11.9 Type 2 diabetes mellitus without complications; E78.00 Pure hypercholesterolemia, unspecified; K21.9 Gastro-esophageal reflux disease without esophagitis; M19.90 Unspecified osteoarthritis, unspecified site; Z88.8 Allergy status to other drugs, medicaments and biological substances; Z91.048 Other nonmedicinal substance allergy status; Z79.899 Other long term (current) drug therapy; Z79.890 Hormone replacement therapy; Z79.82 Long term (current) use of aspirin; Z79.4 Long term (current) use of insulin; W19.XXXA Unspecified fall, initial encounter
CPT/HCPCS: 36415; 73502; 73552; 80053; 82947; 85025; 93005; 96374; 96376; 99284; J2270; 99285